=== PATIENT | female | born 1955 | race Asian ===

== ENCOUNTER 2020-04-14 14:54 | Inpatient (IN) | payer OTHER, MEDICARE ==
--- NOTE | 2020-04-14 15:49 | Event Note ---
ED Screening Note Date of service: 04/14/20 Time: 15:45 ED Screening Note: 64-year-old -[place] female with a comorbidity of diabetes and hypertension with stent placement presents to the emergency room with her daughter for concerns for confusion and Covid-like symptoms. Daughter states that patient was seen at [facility] twice this week and yesterday it was diagnosed with Covid and bilateral double pneumonia per family member. Patient was placed on azithromycin. Daughter reports that she has had increased confusion over the last 4 days with a cough decreased appetite per family member. Patient reports she has loss of taste and smell. Patient is on Metformin. This initial assessment/diagnostic orders/clinical plan/treatment(s) is/are subject to change based on patients health status, clinical progression and re- assessment by fellow clinical providers in the ED. Further treatment and workup at subsequent clinical providers discretion. Patient/guardian urged not to elope from the ED as their condition may be serious if not clinically assessed and managed. Initial orders include: Patient's alert and oriented x2 with difficulty word for word finding in place. Blood sugar was checked in triage which is 72. Patient noted to have a low- grade temperature of 99.9 and mildly hypoxic at 95% on room air. Discussed patient's case briefly with Dr. Castillo and he recommends to do a altered mental status ER protocol. Labs and CT has been placed. Inform charge nurse of patient's condition.
[2020-04-14 16:01] LABS: Basophils % (Auto) 0.3 % (0.0-1.8); Eosinophils % (Auto) 0.1 % (0.0-4.3); Hematocrit 36.9 % (30.3-42.9); Hemoglobin 12.2 gm/dl (10.1-14.3); Mean Corpuscular HGB Conc 33 % (30-34); Mean Corpuscular Volume 90 fl (79-97); Monocytes # (Auto) 0.5 K/mm3 (0.0-0.8); Monocytes % (Auto) 14.5 % (0.0-7.3); Platelet Count 197 K/mm3 (140-440); Red Blood Count 4.09 M/mm3 (3.65-5.03); Red Cell Distribution Width 13.9 % (13.2-15.2)
--- NOTE | 2020-04-14 16:12 | XRay Report ---
XR chest routine 2V INDICATION / CLINICAL INFORMATION: sob,+ covid. COMPARISON: None available. FINDINGS: SUPPORT DEVICES: None. HEART /PULMONARY VASCULATURE: No significant abnormality. LUNGS / PLEURA: Patchy bilateral airspace opacities, greatest in the right mid lung and bilateral brandi g bases. No sizable pleural effusion. No pneumothorax. ADDITIONAL FINDINGS: No significant additional findings. IMPRESSION: Bilateral pulmonary airspace disease, in keeping with reported history of COVID. Signer Name: Matthew Snyder MD Signed: 04/14/2020 4:08 PM Workstation Name: [id number]
[2020-04-14 16:22] LABS: Bilirubin,Urine NEG (Negative); Blood,Urine NEG (Negative); Color,Urine Yellow (Yellow); Mucus,Urine FEW /HPF; Urobilinogen,Urine < 2.0 mg/dL (<2.0)
[2020-04-14 16:23] LABS: Protein,Urine >500 mg/dL (Negative)
[2020-04-14 16:26] LABS: Albumin 3.7 g/dL (3.9-5); Calcium 9.8 mg/dL (8.4-10.2)
--- NOTE | 2020-04-14 17:53 | Cat Scan Report ---
CT head/brain wo con INDICATION / CLINICAL INFORMATION: 64 years Female; Altered mental status. TECHNIQUE: Routine CT head without contrast. All CT scans at this location are performed using CT dos e reduction for ALARA by means of automated exposure control. COMPARISON: None. FINDINGS: BRAIN / INTRACRANIAL CONTENTS: The motion and beam hardening degrade the image quality. However, ther e appears be mild cerebral white matter disease most consistent with microvascular angiopathy. There also appears be old small lacunar infarct along the head of the right caudate, best seen on the coron al reconstructed sequence. There is also mild cerebral atrophy. The ventricular system is correspondingly appropriate in size an d configuration. There is no clear CT evidence of acute intracranial hemorrhage or significant mass e ffect. ORBITS: No significant abnormality of visualized orbits. SINUSES / MASTOIDS: No significant abnormality in the visualized paranasal sinuses or mastoid air david ls. CRANIOCERVICAL JUNCTION: No significant abnormality. ADDITIONAL FINDINGS: None. IMPRESSION: 1. The motion degrades the image quality. However, there is microvascular angiopathy as described wit hout CT evidence of acute intracranial hemorrhage. Signer Name: Twan Talamantes MD Signed: 04/14/2020 5:48 PM Workstation Name: [id number]
--- NOTE | 2020-04-14 21:48 | Emergency Department Report ---
ED General Adult HPI - General Chief complaint: Dyspnea/Respdistress Stated complaint: BODY ACHES/COVID Time Seen by Provider: 04/14/20 21:33 Source: patient, family Mode of arrival: Wheelchair Limitations: No Limitations - History of Present Illness Initial comments: 64-year-old female, Covid positive, history of hypertension, CAD, presents to ED with confusion. Patient has had symptomatic Covid for the last week, including cough, loss of smell and taste. Patient denies any difficulty breathing. Parents became worried because she forgot to eat and has been forgetting some things such as her phone number. Patient states she feels like her brain is foggy. Patient was seen at [facility] on yesterday and tested positive for COVID-19 and was told that she had bilateral pneumonia. Patient brought to ED today for confusion. -: days(s) (4) Consistency: intermittent Improves with: none Worsens with: none Associated Symptoms: confusion, cough, fever/chills. denies: nausea/vomiting, shortness of breath - Related Data Allergies Allergy/AdvReac Type Severity Reaction Status Date / Time shellfish derived Allergy Swelling Verified 04/14/20 15:11 strawberry Allergy Swelling Verified 04/14/20 15:11 ED Review of Systems ROS: Stated complaint: BODY ACHES/COVID Other details as noted in HPI Comment: All other systems reviewed and negative Constitutional: fever, other (Decreased appetite) Respiratory: cough. denies: shortness of breath Gastrointestinal: denies: vomiting, diarrhea ED Past Medical Hx - Past Medical History Previous Medical History?: Yes Hx Hypertension: Yes Hx CVA: Yes Hx Diabetes: Yes - Surgical History Past Surgical History?: Yes Hx Coronary Stent: Yes - Social History Smoking Status: Never Smoker Substance Use Type: None ED Physical Exam - General Limitations: No Limitations General appearance: alert, in no apparent distress - Head Head exam: Present: atraumatic, normocephalic - Eye Eye exam: Present: normal appearance, EOMI - ENT ENT exam: Present: mucous membranes moist - Neck Neck exam: Present: normal inspection - Respiratory Respiratory exam: Present: normal lung sounds bilaterally. Absent: respiratory distress - Cardiovascular Cardiovascular Exam: Present: regular rate, normal rhythm - GI/Abdominal GI/Abdominal exam: Present: soft. Absent: distended, tenderness - Extremities Exam Extremities exam: Present: normal inspection - Neurological Exam Neurological exam: Present: alert, oriented X3 - Psychiatric Psychiatric exam: Present: normal affect, normal mood - Skin Skin exam: Present: warm, dry, intact, normal color ED Course Vital Signs 04/14/20 04/14/20 04/14/20 15:11 22:48 22:50 Temperature 99.9 F H 100.4 F H Pulse Rate 83 Respiratory 22 Rate Blood Pressure 153/78 Blood Pressure [Left] O2 Sat by Pulse 95 91 Oximetry 04/14/20 04/14/20 04/14/20 22:55 23:00 23:16 Temperature Pulse Rate 88 86 Respiratory 20 16 22 Rate Blood Pressure 166/77 166/77 Blood Pressure [Left] O2 Sat by Pulse 90 88 95 Oximetry 04/14/20 04/14/20 04/15/20 23:30 23:46 00:00 Temperature Pulse Rate 84 86 86 Respiratory 35 H 28 H 24 Rate Blood Pressure 151/85 152/87 151/92 Blood Pressure [Left] O2 Sat by Pulse 97 95 93 Oximetry 04/15/20 04/15/20 04/15/20 00:15 00:31 00:44 Temperature Pulse Rate 84 84 Respiratory 26 H 16 33 H Rate Blood Pressure 157/85 157/85 Blood Pressure [Left] O2 Sat by Pulse 94 100 Oximetry 04/15/20 04/15/20 04/15/20 00:45 01:00 01:15 Temperature Pulse Rate 85 79 78 Respiratory 18 34 H 30 H Rate Blood Pressure 144/83 143/71 127/72 Blood Pressure [Left] O2 Sat by Pulse 94 94 93 Oximetry 04/15/20 04/15/20 04/15/20 01:31 01:45 01:53 Temperature Pulse Rate 77 75 76 Respiratory 29 H 26 H 18 Rate Blood Pressure 149/79 150/84 Blood Pressure 150/84 [Left] O2 Sat by Pulse 91 92 95 Oximetry 04/15/20 04/15/20 04/15/20 02:00 02:15 02:30 Temperature Pulse Rate 75 75 73 Respiratory 33 H 31 H 33 H Rate Blood Pressure 137/76 139/80 136/73 Blood Pressure [Left] O2 Sat by Pulse 92 91 94 Oximetry - Consultations Consultation #1: 04/14/20 22:[address] Mills with [facility]. States patient is to stay at [facility] for admission; they have no beds at any of their facilities. Of note, patient was given prescriptions for Cozaar, azithromycin, and Pradaxa by her [facility] PCP ED Medical Decision Making - Lab Data Result diagrams: 04/14/20 15:35 04/14/20 23:05 - EKG Data -: EKG Interpreted by Me EKG shows normal: sinus rhythm, axis, intervals, QRS complexes, ST-T waves Rate: normal - EKG Data Interpretation: no acute changes - Radiology Data Radiology results: report reviewed, image reviewed - Medical Decision Making 64-year-old female, tested positive for COVID-19 on yesterday, presents to ED with some intermittent confusion. Patient is A&O x3 at this time. She does admit to some brain fogginess and forgetting few things. CT head is negative. Chest x-ray shows bilateral pneumonia. With ambulation, O2 sats dropped to 87% on room air. Blood cultures drawn, Rocephin, azithromycin, and Decadron given. Patient will be admitted to hospitalist, Dr. Adorno, for further management. - Differential Diagnosis COVID-19, CVA, pneumonia Critical Care Time: Yes Critical care time in (mins) excluding proc time.: 35 Critical care attestation.: If time is entered above; I have spent that time in minutes in the direct care of this critically ill patient, excluding procedure time. Critical Care Time: 35 min ED Disposition Clinical Impression: Acute hypoxemic respiratory failure due to COVID-19, Pneumonia, Hypokalemia Disposition: OP ADMIT IP TO THIS HOSP Is pt being admited?: Yes Condition: Stable Time of Disposition: 22:54
[2020-04-14] MEDS ORDERED: cefTRIAXone/NS 1 GM/50 ML 1 GM/50 ML BAG IV ONE (22:45)
[2020-04-14] MEDS ORDERED: DEXAMETHASONE 4 MG TAB PO ONE (22:45)
[2020-04-14] MEDS ORDERED: AZITHROMYCIN 250 MG TAB PO ONE (22:45)
[2020-04-14] MEDS ORDERED: POTASSIUM CHLORIDE ER 20 MEQ TAB PO ONE (22:45)
[2020-04-14] MEDS ORDERED: ACETAMINOPHEN 325 MG TAB PO ONE (23:25)
[2020-04-15] MEDS ORDERED: MAGNESIUM HYDROXIDE (MOM) ORAL LIQD UDC PO PRN (00:34)
[2020-04-15] MEDS ORDERED: ACETAMINOPHEN 325 MG TAB PO PRN (00:34)
[2020-04-15] MEDS ORDERED: MORPHINE 2 MG/1 ML INJ IV PRN (00:34)
[2020-04-15] MEDS ORDERED: ONDANSETRON 4 MG/2 ML INJ IV PRN (00:34)
[2020-04-15] MEDS ORDERED: DEXTROSE 50% IN WATER (25GM) 50 ML SYRINGE IV PRN (00:34)
--- NOTE | 2020-04-15 00:46 | History and Physical Report ---
History of Present Illness Date of examination: 04/14/20 Date of admission: 04/14/2020 Chief complaint: Cough Fever Confusion History of present illness: 64-year-old female with known history of coronary artery disease, hypertension, presenting to the emergency room today complaining of cough and loss of smell and taste over the past 1 week. Patient was diagnosed with COVID-19 positive at a [facility] facility yesterday. Symptoms have become worse today and she has also been a little confused. She has become increasingly forgetful. She was informed in the [facility] facility that she had bilateral pneumonia. Upon arrival here in the emergency room patient was hypoxic with O2 saturation in the 80s. Chest x-ray reveals bilateral infiltrate. Labs reviewed mild hypokalemia. Patient admitted with pneumonia possibly secondary to COVID-19. She was started on empiric IV antibiotics and IV steroid. Past History Past Medical History: CAD, diabetes, hypertension, stroke Past Surgical History: PTCA Social history: no significant social history Family history: no significant family history Medications and Allergies Allergies Allergy/AdvReac Type Severity Reaction Status Date / Time shellfish derived Allergy Swelling Verified 04/14/20 15:11 strawberry Allergy Swelling Verified 04/14/20 15:11 Active Meds: Active Medications Acetaminophen (Acetaminophen 325 Mg Tab) 650 mg PO Q4H PRN PRN Reason: Pain MILD(1-3)/Fever >100.5/GRAY Dextrose (Dextrose 50% In Water (25gm) 50 Ml Syringe) 50 ml IV Q30MIN PRN; Protocol PRN Reason: Hypoglycemia Dextrose (Dextrose 50% In Water (25gm) 50 Ml Syringe) 50 ml IV Q30MIN PRN; Protocol PRN Reason: Hypoglycemia Ceftriaxone Sodium (Rocephin/Ns 2 Gm/100 Ml) 2 gm in 100 mls @ 200 mls/hr IV Q24H [facility]; Protocol Azithromycin (Zithromax/Ns) 500 mg in 250 mls @ 250 mls/hr IV Q24H [facility]; Protocol Insulin Human Regular (Insulin Regular, Human 100 Units/1 Ml) 0 units SUB-Q ACHS [facility]; Protocol Magnesium Hydroxide (Magnesium Hydroxide (Mom) Oral Liqd Udc) 30 ml PO Q4H PRN PRN Reason: Constipation Morphine Sulfate (Morphine 2 Mg/1 Ml Inj) 2 mg IV Q4H PRN PRN Reason: Pain, Moderate (4-6) Ondansetron HCl (Ondansetron 4 Mg/2 Ml Inj) 4 mg IV Q8H PRN PRN Reason: Nausea And Vomiting Sodium Chloride (Sodium Chloride 0.9% 10 Ml Flush Syringe) 10 ml IV BID DURGA Sodium Chloride (Sodium Chloride 0.9% 10 Ml Flush Syringe) 10 ml IV PRN PRN PRN Reason: LINE FLUSH Review of Systems Constitutional: fever, chills, fatigue Ears, nose, mouth and throat: no nasal congestion, no sore throat Cardiovascular: no chest pain, no palpitations Respiratory: cough, shortness of breath Gastrointestinal: no abdominal pain, no nausea, no vomiting, no diarrhea Genitourinary Female: no flank pain, no dysuria, no hematuria Musculoskeletal: no neck pain, no low back pain Integumentary: no rash, no pruritis Neurological: confusion, no headaches Psychiatric: no anxiety, no depression Exam - Constitutional Vitals: Temp Pulse Resp BP Pulse Ox 100.4 F H 83 20 153/78 90 04/14/20 22:50 04/14/20 15:11 04/14/20 22:55 04/14/20 15:11 04/14/20 22:55 General appearance: Present: no acute distress, well-nourished - EENT Eyes: Present: PERRL, EOM intact. Absent: scleral icterus ENT: hearing intact, clear oral mucosa, dentition normal - Neck Neck: Present: supple, normal ROM - Respiratory Respiratory effort: normal Respiratory: bilateral: diminished - Cardiovascular Rhythm: regular Heart Sounds: Present: S1 & S2. Absent: gallop, systolic murmur, diastolic murmur, rub - Extremities Extremities: no ischemia, pulses intact, pulses symmetrical, No edema, normal temperature, normal color, Full ROM Peripheral Pulses: within normal limits - Abdominal General gastrointestinal: Present: soft, non-tender, non-distended, normal bowel sounds. Absent: mass - Integumentary Integumentary: Present: clear, warm, dry. Absent: rash - Musculoskeletal Musculoskeletal: strength equal bilaterally - Psychiatric Psychiatric: appropriate mood/affect, intact judgment & insight, memory intact, cooperative - Neurologic Neurologic: CNII-XII intact, no focal deficits, moves all extremities Results - Labs CBC & Chem 7: 04/14/20 15:35 04/14/20 23:05 Labs: Abnormal lab results 04/14/20 04/14/20 04/14/20 Range/Units 15:35 15:35 15:35 WBC 3.6 L (4.5-11.0) K/mm3 [place] % (Auto) 14.5 H (0.0-7.3) % Lymph # (Auto) 1.0 L (1.2-5.4) K/mm3 Potassium 3.3 L (3.6-5.0) mmol/L BUN 23 H (7-17) mg/dL Creatinine 1.4 H (0.6-1.2) mg/dL Phosphorus 1.20 L (2.5-4.5) mg/dL Magnesium 1.50 L (1.7-2.3) mg/dL Total Protein 6.1 L (6.3-8.2) g/dL Albumin 3.7 L (3.9-5) g/dL Urine WBC (Auto) (0.0-6.0) /HPF Salicylates (2.8-20.0) mg/dL Acetaminophen (10.0-30.0) ug/mL 04/14/20 04/14/20 04/14/20 Range/Units 15:41 15:41 16:11 WBC (4.5-11.0) K/mm3 [place] % (Auto) (0.0-7.3) % Lymph # (Auto) (1.2-5.4) K/mm3 Potassium (3.6-5.0) mmol/L BUN (7-17) mg/dL Creatinine (0.6-1.2) mg/dL Phosphorus (2.5-4.5) mg/dL Magnesium (1.7-2.3) mg/dL Total Protein (6.3-8.2) g/dL Albumin (3.9-5) g/dL Urine WBC (Auto) 27.0 H (0.0-6.0) /HPF Salicylates 1.1 L (2.8-20.0) mg/dL Acetaminophen 5.0 L (10.0-30.0) ug/mL Assessment and Plan - Patient Problems (1) Pneumonia Current Visit: Yes Status: Acute Plan to address problem: None admitted and placed on empiric IV antibiotics. We await culture results. (2) Acute hypoxemic respiratory failure due to COVID-19 Current Visit: Yes Status: Acute Plan to address problem: Possibly secondary to underlying pneumonia. We will keep O2 saturation greater or equal to 94%. (3) Hypokalemia Current Visit: Yes Status: Acute Plan to address problem: Potassium will be repleted. Will monitor chemistry. (4) DVT prophylaxis Current Visit: Yes Status: Acute Plan to address problem: Patient placed on subcutaneous heparin. (5) Full code status Current Visit: Yes Status: Acute Plan to address problem: Patient is a full code.
[2020-04-15 02:22] LABS: C-Reactive Protein 5.2 mg/dL (0.00-1.30)
[2020-04-15] MEDS: cefTRIAXone/NS 2 GM/100 ML 2 GM/100 ML BAG IV SCH (09:25)
[2020-04-15] MEDS: INSULIN REGULAR, HUMAN 100 UNITS/1 ML SUB-Q SCH ×4 (09:26→22:40)
[2020-04-15] MEDS ORDERED: dexAMETHasone 4 MG/ML VIAL IV SCH (10:00)
[2020-04-15] MEDS: AZITHROMYCIN/NS 500 MG/250 ML 500 MG/250 ML BAG IV SCH (10:44)
--- NOTE | 2020-04-15 11:57 | Consultation ---
History of Present Illness - Reason for Consult Consult date: 04/15/20 - History of Present Illness 64-year-old female past medical history CAD, HTN presented to the hospital complaining of a cough. This began approximate 1 week prior to admission, and she was diagnosed with COVID-19 as an outpatient the day prior to admission. She notes her symptoms were progressively worse since onset, and she complains of dysgeusia and anosmia as well. She reports that as an outpatient she had a chest x-ray done which showed bilateral pneumonia. Febrile to 100.4 with a white count of 3.6. Elevated inflammatory markers, elevated D-dimer. Currently on ceftriaxone and azithromycin. Blood and urine cultures no growth to date. Admission O2 sats to 88 with tachypnea. Imaging personally reviewed: Chest x-ray: Bilateral pulmonary opacities. Review of systems: Deferred due to PPE conservation strategy. Past History Past Medical History: CAD, diabetes, hypertension, stroke Past Surgical History: PTCA Social history: no significant social history Family history: no significant family history Medications and Allergies Allergies Allergy/AdvReac Type Severity Reaction Status Date / Time shellfish derived Allergy Swelling Verified 04/14/20 15:11 strawberry Allergy Swelling Verified 04/14/20 15:11 Active Meds: Active Medications Acetaminophen (Acetaminophen 325 Mg Tab) 650 mg PO Q4H PRN PRN Reason: Pain MILD(1-3)/Fever >100.5/GRAY Dexamethasone (Dexamethasone 4 Mg/Ml Vial) 6 mg IV Q24HR DURGA Last Admin: 04/15/20 09:25 Dose: 6 mg Documented by: Dextrose (Dextrose 50% In Water (25gm) 50 Ml Syringe) 0 ml IV Q30MIN PRN; Protocol PRN Reason: Hypoglycemia Heparin Sodium (Porcine) (Heparin 5,000 Unit/1 Ml Vial) 5,000 unit SUB-Q Q8HR [facility]UR[facility] Ceftriaxone Sodium (Rocephin/Ns 2 Gm/100 Ml) 2 gm in 100 mls @ 200 mls/hr IV Q24HR [facility]UR[facility]; Protocol Last Admin: 04/15/20 09:25 Dose: 200 mls/hr Documented by: Azithromycin (Zithromax/Ns) 500 mg in 250 mls @ 250 mls/hr IV Q24HR [facility]; Protocol Last Admin: 04/15/20 10:44 Dose: 250 mls/hr Documented by: Insulin Human Regular (Insulin Regular, Human 100 Units/1 Ml) 0 units SUB-Q ACHS [facility]; Protocol Last Admin: 04/15/20 09:26 Dose: 4 units Documented by: Magnesium Hydroxide (Magnesium Hydroxide (Mom) Oral Liqd Udc) 30 ml PO Q4H PRN PRN Reason: Constipation Morphine Sulfate (Morphine 2 Mg/1 Ml Inj) 2 mg IV Q4H PRN PRN Reason: Pain, Moderate (4-6) Ondansetron HCl (Ondansetron 4 Mg/2 Ml Inj) 4 mg IV Q8H PRN PRN Reason: Nausea And Vomiting Sodium Chloride (Sodium Chloride 0.9% 10 Ml Flush Syringe) 10 ml IV BID [facility] Last Admin: 04/15/20 09:26 Dose: 10 ml Documented by: Sodium Chloride (Sodium Chloride 0.9% 10 Ml Flush Syringe) 10 ml IV PRN PRN PRN Reason: LINE FLUSH Physical Examination - Physical Exam Narrative exam: Physical exam deferred due to PPE conservation strategy. Please refer to primary team's note. - Constitutional Vitals: Vital Signs Temp Pulse Resp BP Pulse Ox 99.2 F 72 22 163/94 99 04/15/20 08:33 04/15/20 08:33 04/15/20 08:33 04/15/20 08:33 04/15/20 08:33 Temperature -Last 24 Hours Temperature 99.2 F Temperature 100.4 F Temperature 99.9 F Results - Labs CBC & Chem 7: 04/14/20 15:35 04/14/20 23:05 Labs: Abnormal lab results 04/14/20 04/14/20 04/14/20 Range/Units 15:35 15:35 15:35 WBC 3.6 L (4.5-11.0) K/mm3 [place] % (Auto) 14.5 H (0.0-7.3) % Lymph # (Auto) 1.0 L (1.2-5.4) K/mm3 D-Dimer (0-234) ng/mlDDU Potassium 3.3 L (3.6-5.0) mmol/L BUN 23 H (7-17) mg/dL Creatinine 1.4 H (0.6-1.2) mg/dL POC Glucose (70-105) mg/dL Phosphorus 1.20 L (2.5-4.5) mg/dL Magnesium 1.50 L (1.7-2.3) mg/dL Ferritin (10.0-200.0) ng/mL Lactate Dehydrogenase (91-180) units/L C-Reactive Protein (0.00-1.30) mg/dL Total Protein 6.1 L (6.3-8.2) g/dL Albumin 3.7 L (3.9-5) g/dL Urine WBC (Auto) (0.0-6.0) /HPF Salicylates (2.8-20.0) mg/dL Acetaminophen (10.0-30.0) ug/mL 04/14/20 04/14/20 04/14/20 Range/Units 15:41 15:41 16:11 WBC (4.5-11.0) K/mm3 [place] % (Auto) (0.0-7.3) % Lymph # (Auto) (1.2-5.4) K/mm3 D-Dimer (0-234) ng/mlDDU Potassium (3.6-5.0) mmol/L BUN (7-17) mg/dL Creatinine (0.6-1.2) mg/dL POC Glucose (70-105) mg/dL Phosphorus (2.5-4.5) mg/dL Magnesium (1.7-2.3) mg/dL Ferritin (10.0-200.0) ng/mL Lactate Dehydrogenase (91-180) units/L C-Reactive Protein (0.00-1.30) mg/dL Total Protein (6.3-8.2) g/dL Albumin (3.9-5) g/dL Urine WBC (Auto) 27.0 H (0.0-6.0) /HPF Salicylates 1.1 L (2.8-20.0) mg/dL Acetaminophen 5.0 L (10.0-30.0) ug/mL 04/14/20 04/14/20 04/14/20 Range/Units 23:05 23:05 23:05 WBC (4.5-11.0) K/mm3 [place] % (Auto) (0.0-7.3) % Lymph # (Auto) (1.2-5.4) K/mm3 D-Dimer 664.34 H (0-234) ng/mlDDU Potassium (3.6-5.0) mmol/L BUN (7-17) mg/dL Creatinine (0.6-1.2) mg/dL POC Glucose (70-105) mg/dL Phosphorus (2.5-4.5) mg/dL Magnesium (1.7-2.3) mg/dL Ferritin 388.0 H (10.0-200.0) ng/mL Lactate Dehydrogenase 380 H (91-180) units/L C-Reactive Protein 5.20 H (0.00-1.30) mg/dL Total Protein (6.3-8.2) g/dL Albumin (3.9-5) g/dL Urine WBC (Auto) (0.0-6.0) /HPF Salicylates (2.8-20.0) mg/dL Acetaminophen (10.0-30.0) ug/mL 04/15/20 Range/Units 08:32 WBC (4.5-11.0) K/mm3 [place] % (Auto) (0.0-7.3) % Lymph # (Auto) (1.2-5.4) K/mm3 D-Dimer (0-234) ng/mlDDU Potassium (3.6-5.0) mmol/L BUN (7-17) mg/dL Creatinine (0.6-1.2) mg/dL POC Glucose 281 H (70-105) mg/dL Phosphorus (2.5-4.5) mg/dL Magnesium (1.7-2.3) mg/dL Ferritin (10.0-200.0) ng/mL Lactate Dehydrogenase (91-180) units/L C-Reactive Protein (0.00-1.30) mg/dL Total Protein (6.3-8.2) g/dL Albumin (3.9-5) g/dL Urine WBC (Auto) (0.0-6.0) /HPF Salicylates (2.8-20.0) mg/dL Acetaminophen (10.0-30.0) ug/mL Assessment and Plan Cultures: Blood culture no growth to date Urine culture no growth to date A/P: 64-year-old female past medical history CAD, HTN admitted with COVID-19 pneumonia #COVID-19 pneumonia: Patient presented with a week of symptoms, chest x-ray with diffuse bilateral infiltrates, admission O2 88% sats on room air. Inflammatory markers elevated #Acute hypoxemic respiratory failure: Likely secondary to COVID-19 infection. Currently on nasal cannula #Leukopenia: Likely secondary to COVID-19 #Obesity #Mild confusion: Likely secondary to COVID-19. Recs: -Dexamethasone 6 mg IV/PO daily for 10 days -Remdesivir 200 mg IV q day x 1 followed by 100 mg IV q day x 4 days -Obtain q48-72h inflammatory markers - ferritin, Ddimer, CRP, LDH -Continue ceftriaxone 2 gm IV qday and azithromycin 500 mg PO qday, if procalcitonin <0.25 ng/mL stop antibiotics -Anticoagulation per hospital protocol -Proning as able Thank you for the consult, we will continue to follow. MD [facility] O: [phone] F: [phone]
[2020-04-15] MEDS: HEPARIN 5,000 UNIT/1 ML VIAL SUB-Q SCH ×2 (13:20→22:39)
[2020-04-15] MEDS: SODIUM CHLORIDE 0.9% 50 ML IVPB IV SCH (13:21)
--- NOTE | 2020-04-15 13:29 | Progress Note ---
Assessment and Plan Assessment and plan: 64-year-old female with known history of coronary artery disease, hypertension, presenting to the emergency room today complaining of cough and loss of smell and taste over the past 1 week. Patient was diagnosed with COVID-19 positive at a [facility] facility yesterday. Symptoms have become worse today and she has also been a little confused. She has become increasingly forgetful. She was informed in the [facility] facility that she had bilateral pneumonia. Upon arrival here in the emergency room patient was hypoxic with O2 saturation in the 80s. Chest x-ray reveals bilateral infiltrate. Labs reviewed mild hypokalemia. Patient admitted with pneumonia possibly secondary to COVID-19. She was started on empiric IV antibiotics and IV steroid. COVID-19 pneumonia Sepsis secondary to Covid pneumonia COVID-19 Hypokalemia now resolved Acute respiratory failure with hypoxia Hypophosphatemia Hypomagnesemia Acute cystitis Acute kidney injury with vasomotor nephropathy Obesity Plan Continue remdesivir and Decadron as prescribed. ID input noted. Continue to wean oxygen nursing staff asked to be has wean the patient down to 2 L this morning Continue vitamins as risk prescribed Covid test came back positive Monitor electrolytes DVT and GI prophylaxis Continue to monitor inflammatory markers and monitor renal function as remdesivir may need to be discontinued if worsening renal function. Plan discussed in detail with the patient History Interval history: Patient seen and examined resting comfortably at this time still with shortness of breath. Hospitalist Physical - Physical exam Narrative exam: VITAL SIGNS: Reviewed. GENERAL: The patient appears normally developed, lethargic vital signs as documented. HEAD: No signs of head trauma. EYES: Pupils are equal. Extraocular motions intact. EARS: Hearing grossly intact. MOUTH: Oropharynx is normal. NECK: No adenopathy, no JVD. CHEST: Chest with diminished breath sounds bilaterally. No wheezes, rales, or rhonchi. CARDIAC: Regular rate and rhythm. S1 and S2, without murmurs, gallops, or rubs. VASCULAR: No Edema. Peripheral pulses normal and equal in all extremities. ABDOMEN: Soft, non tender and non distended. No rebound or guarding, and no masses palpated. Bowel Sounds normal. MUSCULOSKELETAL: Good range of motion of all major joints. Extremities without clubbing, cyanosis or edema. NEUROLOGIC EXAM: Alert and oriented x 3 No focal sensory or strength deficits. Speech normal. Follows commands. PSYCHIATRIC: Mood normal. SKIN: detail exam as documented in skin assessment - Constitutional Vitals: Temp Pulse Resp BP Pulse Ox 98.7 F 74 18 144/91 98 04/15/20 12:49 04/15/20 12:49 04/15/20 12:49 04/15/20 12:49 04/15/20 12:49 General appearance: Present: no acute distress, well-nourished Results - Labs CBC & Chem 7: 04/14/20 15:35 04/14/20 23:05 Labs: Laboratory Last Values WBC 3.6 K/mm3 (4.5-11.0) L 04/14/20 15:35 RBC 4.09 M/mm3 (3.65-5.03) 04/14/20 15:35 Hgb 12.2 gm/dl (10.1-14.3) 04/14/20 15:35 Hct 36.9 % (30.3-42.9) 04/14/20 15:35 MCV 90 fl (79-97) 04/14/20 15:35 MCH 30 pg (28-32) 04/14/20 15:35 MCHC 33 % (30-34) 04/14/20 15:35 RDW 13.9 % (13.2-15.2) 04/14/20 15:35 Plt Count 197 K/mm3 (140-440) 04/14/20 15:35 Lymph % (Auto) 28.0 % (13.4-35.0) 04/14/20 15:35 [place] % (Auto) 14.5 % (0.0-7.3) H 04/14/20 15:35 Eos % (Auto) 0.1 % (0.0-4.3) 04/14/20 15:35 Baso % (Auto) 0.3 % (0.0-1.8) 04/14/20 15:35 Lymph # (Auto) 1.0 K/mm3 (1.2-5.4) L 04/14/20 15:35 [place] # (Auto) 0.5 K/mm3 (0.0-0.8) 04/14/20 15:35 Eos # (Auto) 0.0 K/mm3 (0.0-0.4) 04/14/20 15:35 Baso # (Auto) 0.0 K/mm3 (0.0-0.1) 04/14/20 15:35 Seg Neutrophils % 57.1 % (40.0-70.0) 04/14/20 15:35 Seg Neutrophils # 2.0 K/mm3 (1.8-7.7) 04/14/20 15:35 D-Dimer 664.34 ng/mlDDU (0-234) H 04/14/20 23:05 Sodium 142 mmol/L (137-145) 04/14/20 15:35 Potassium 3.3 mmol/L (3.6-5.0) L 04/14/20 15:35 Chloride 103.6 mmol/L (98-107) 04/14/20 15:35 Carbon Dioxide 29 mmol/L (22-30) 04/14/20 15:35 Anion Gap 13 mmol/L 04/14/20 15:35 BUN 23 mg/dL (7-17) H 04/14/20 15:35 Creatinine 1.4 mg/dL (0.6-1.2) H 04/14/20 15:35 Estimated GFR 38 ml/min 04/14/20 15:35 BUN/Creatinine Ratio 16 % 04/14/20 15:35 Glucose 71 mg/dL (65-100) 04/14/20 23:05 POC Glucose 281 mg/dL (70-105) H 04/15/20 08:32 Lactic Acid 1.30 mmol/L (0.7-2.0) 04/14/20 15:41 Calcium 9.8 mg/dL (8.4-10.2) 04/14/20 15:35 Phosphorus 1.20 mg/dL (2.5-4.5) L 04/14/20 15:35 Magnesium 1.50 mg/dL (1.7-2.3) L 04/14/20 15:35 Ferritin 388.0 ng/mL (10.0-200.0) H 04/14/20 23:05 Total Bilirubin 0.40 mg/dL (0.1-1.2) 04/14/20 15:35 AST 27 units/L (5-40) 04/14/20 15:35 ALT 15 units/L (7-56) 04/14/20 15:35 Alkaline Phosphatase 62 units/L (35-129) 04/14/20 15:35 Ammonia 35.0 umol/L (25-60) 04/14/20 15:41 Lactate Dehydrogenase 380 units/L (91-180) H 04/14/20 23:05 C-Reactive Protein 5.20 mg/dL (0.00-1.30) H 04/14/20 23:05 Total Protein 6.1 g/dL (6.3-8.2) L 04/14/20 15:35 Albumin 3.7 g/dL (3.9-5) L 04/14/20 15:35 Albumin/Globulin Ratio 1.5 % 04/14/20 15:35 Urine Color Yellow (Yellow) 04/14/20 16:11 Urine Turbidity Clear (Clear) 04/14/20 16:11 Urine pH 5.0 (5.0-7.0) 04/14/20 16:11 Ur Specific [place] 1.022 (1.003-1.030) 04/14/20 16:11 Urine Protein >500 mg/dL (Negative) 04/14/20 16:11 Urine Glucose (UA) Neg mg/dL (Negative) 04/14/20 16:11 Urine Ketones Neg mg/dL (Negative) 04/14/20 16:11 Urine Blood Neg (Negative) 04/14/20 16:11 Urine Nitrite Neg (Negative) 04/14/20 16:11 Urine Bilirubin Neg (Negative) 04/14/20 16:11 Urine Urobilinogen < 2.0 mg/dL (<2.0) 04/14/20 16:11 Ur Leukocyte Esterase Sm (Negative) 04/14/20 16:11 Urine WBC (Auto) 27.0 /HPF (0.0-6.0) H 04/14/20 16:11 Urine RBC (Auto) 2.0 /HPF (0.0-6.0) 04/14/20 16:11 U Epithel Cells (Auto) 2.0 /HPF (0-13.0) 04/14/20 16:11 Urine Mucus Few /HPF 04/14/20 16:11 Salicylates 1.1 mg/dL (2.8-20.0) L 04/14/20 15:41 Acetaminophen 5.0 ug/mL (10.0-30.0) L 04/14/20 15:41 Coronavirus (PCR) Positive (Negative) A 04/15/20 Unknown Microbiology: Microbiology 04/14/20 16:11 Urine,Clean Catch Urine Culture - Preliminary NO GROWTH AFTER 24 HOURS 04/14/20 15:52 Peripheral/Venous Blood Culture - Preliminary Culture in Progress 04/14/20 15:41 Peripheral/Venous Blood Culture - Preliminary Culture in Progress [place]/IV: IV Catheter Type [Right Hand] INT / Saline Lock Active Medications - Current Medications Current Medications: Generic Name Dose Route Start Last Admin Trade Name Freq PRN Reason Stop Dose Admin Acetaminophen 650 mg 04/15/20 00:34 Acetaminophen 325 Mg Tab PO Q4H PRN Pain MILD(1-3)/Fever >100.5/GRAY Dexamethasone 6 mg 04/15/20 10:00 04/15/20 09:25 Dexamethasone 4 Mg/Ml Vial IV 6 mg Q24HR DURGA Administration Dextrose 0 ml 04/15/20 00:34 Dextrose 50% In Water (25gm) 50 Ml Syringe IV Q30MIN PRN Hypoglycemia Protocol Heparin Sodium (Porcine) 5,000 unit 04/15/20 06:00 04/15/20 13:20 Heparin 5,000 Unit/1 Ml Vial SUB-Q 5,000 unit Q8HR DURGA Administration Ceftriaxone Sodium 2 gm in 100 mls @ 200 mls/hr 04/15/20 10:00 04/15/20 09:25 Rocephin/Ns 2 Gm/100 Ml IV 200 mls/hr Q24HR DURGA Administration Protocol Azithromycin 500 mg in 250 mls @ 250 mls/hr 04/15/20 10:00 04/15/20 10:44 Zithromax/Ns IV 250 mls/hr Q24HR DURGA Administration Protocol REMDESIVIR 200 mg/ Sodium 250 mls @ 500 mls/hr 04/15/20 13:30 04/15/20 13:11 Chloride IV 04/15/20 13:59 500 mls/hr ONCE ONE Administration REMDESIVIR 100 mg/ Sodium 250 mls @ 500 mls/hr 04/16/20 21:00 Chloride IV 04/19/20 21:29 Q24HR@2100 DURGA Magnesium Sulfate 1 gm/ Sodium 52 mls @ 52 mls/hr 04/15/20 13:27 Chloride IV 04/15/20 14:26 ONCE ONE Sodium Phosphate 30 mmol/ 510 mls @ 125 mls/hr 04/15/20 13:27 Sodium Chloride IV 04/15/20 17:31 ONCE ONE Insulin Human Regular 0 units 04/15/20 07:30 04/15/20 13:11 Insulin Regular, Human 100 Units/1 Ml SUB-Q 6 units ACHS DURGA Administration Protocol Magnesium Hydroxide 30 ml 04/15/20 00:34 Magnesium Hydroxide (Mom) Oral Liqd Udc PO Q4H PRN Constipation Morphine Sulfate 2 mg 04/15/20 00:34 Morphine 2 Mg/1 Ml Inj IV Q4H PRN Pain, Moderate (4-6) Ondansetron HCl 4 mg 04/15/20 00:34 Ondansetron 4 Mg/2 Ml Inj IV Q8H PRN Nausea And Vomiting Sodium Chloride 10 ml 04/15/20 10:00 04/15/20 09:26 Sodium Chloride 0.9% 10 Ml Flush Syringe IV 10 ml BID DURGA Administration Sodium Chloride 10 ml 04/15/20 00:34 Sodium Chloride 0.9% 10 Ml Flush Syringe IV PRN PRN LINE FLUSH Sodium Chloride 50 ml 04/15/20 14:00 04/15/20 13:21 Sodium Chloride 0.9% 50 Ml Ivpb IV 04/19/20 21:01 50 ml Q24HR@2100 DURGA Administration Nutrition/Malnutrition Assess - Dietary Evaluation Nutrition/Malnutrition Findings: Nutrition Notes Start: 04/15/20 07:16 Freq: Status: Active Protocol: Document 04/15/20 07:16 LP (Rec: 04/15/20 07:17 LP [id number]) Nutrition Notes Need for Assessment generated from: MD Order Initial or Follow up Brief Note Subjective/Other Information Consult for diet education. Pt still in ED. Nutrition Intervention Follow-Up By: 04/16/20 Additional Comments Follow for diet education
[2020-04-15] MEDS ORDERED: REMDESIVIR 200 MG in SODIUM CHLORIDE 0.9% 250ML 250 ML IV ONE (13:30)
[2020-04-15] MEDS ORDERED: REMDESIVIR 100 MG VIAL IV ONE (13:30)
[2020-04-15] MEDS ORDERED: MAGNESIUM SULFATE 1 GM in SODIUM CHLORIDE 0.9% 50 ML IV ONE (15:27)
[2020-04-15] MEDS ORDERED: SODIUM PHOSPHATE 30 MMOL in SODIUM CHLORIDE 0.9% 500 ML 500 ML IV ONE (15:27)
--- NOTE | 2020-04-15 19:24 | Consultation ---
History of Present Illness Consult date: 04/15/20 Requesting physician: JASON MEJIA Reason for consult: dyspnea History of present illness: 64-year-old female past medical history CAD, HTN presented to the hospital complaining of a cough, GUY, anosmia, and dysgeusia. Denies fevers, chills, chest pain. Active Medications Acetaminophen (Acetaminophen 325 Mg Tab) 650 mg PO Q4H PRN PRN Reason: Pain MILD(1-3)/Fever >100.5/GRAY Last Admin: 04/15/20 18:08 Dose: 650 mg Documented by: Dexamethasone (Dexamethasone 4 Mg/Ml Vial) 6 mg IV Q24HR DURGA Last Admin: 04/15/20 09:25 Dose: 6 mg Documented by: Dextrose (Dextrose 50% In Water (25gm) 50 Ml Syringe) 0 ml IV Q30MIN PRN; Protocol PRN Reason: Hypoglycemia Heparin Sodium (Porcine) (Heparin 5,000 Unit/1 Ml Vial) 5,000 unit SUB-Q Q8HR DURGA Last Admin: 04/15/20 13:20 Dose: 5,000 unit Documented by: Ceftriaxone Sodium (Rocephin/Ns 2 Gm/100 Ml) 2 gm in 100 mls @ 200 mls/hr IV Q24HR DURGA; Protocol Last Admin: 04/15/20 09:25 Dose: 200 mls/hr Documented by: Azithromycin (Zithromax/Ns) 500 mg in 250 mls @ 250 mls/hr IV Q24HR DURGA; Protocol Last Admin: 04/15/20 10:44 Dose: 250 mls/hr Documented by: REMDESIVIR 100 mg/ Sodium (Chloride) 250 mls @ 500 mls/hr IV Q24HR@2100 DURGA Stop: 04/19/20 21:29 Sodium Phosphate 30 mmol/ (Sodium Chloride) 510 mls @ 125 mls/hr IV ONCE ONE Stop: 04/15/20 19:31 Last Admin: 04/15/20 16:27 Dose: 125 mls/hr Documented by: Insulin Human Regular (Insulin Regular, Human 100 Units/1 Ml) 0 units SUB-Q ACHS DURGA; Protocol Last Admin: 04/15/20 17:36 Dose: 3 units Documented by: Magnesium Hydroxide (Magnesium Hydroxide (Mom) Oral Liqd Udc) 30 ml PO Q4H PRN PRN Reason: Constipation Morphine Sulfate (Morphine 2 Mg/1 Ml Inj) 2 mg IV Q4H PRN PRN Reason: Pain, Moderate (4-6) Ondansetron HCl (Ondansetron 4 Mg/2 Ml Inj) 4 mg IV Q8H PRN PRN Reason: Nausea And Vomiting Sodium Chloride (Sodium Chloride 0.9% 10 Ml Flush Syringe) 10 ml IV BID [facility] Last Admin: 04/15/20 09:26 Dose: 10 ml Documented by: Sodium Chloride (Sodium Chloride 0.9% 10 Ml Flush Syringe) 10 ml IV PRN PRN PRN Reason: LINE FLUSH Sodium Chloride (Sodium Chloride 0.9% 50 Ml Ivpb) 50 ml IV Q24HR@2100 [facility] Stop: 04/19/20 21:01 Last Admin: 04/15/20 13:21 Dose: 50 ml Documented by: Past History Past Medical History: CAD, diabetes, hypertension, stroke Past Surgical History: PTCA Social history: no significant social history, full code. denies: smoking, alcohol abuse, prescription drug abuse, IV drug use Family history: no significant family history (no pulm issues reported) Medications and Allergies Allergies Allergy/AdvReac Type Severity Reaction Status Date / Time shellfish derived Allergy Swelling Verified 04/14/20 15:11 strawberry Allergy Swelling Verified 04/14/20 15:11 Home Medications Medication Instructions Recorded Confirmed Last Taken Type Aspirin [Aspirin BABY CHEW TAB] 81 mg PO DAILY 04/15/20 04/15/20 04/14/20 History Atenolol 50 mg PO DAILY 04/15/20 04/15/20 04/14/20 History Atorvastatin Calcium [Lipitor] 80 mg PO DAILY 04/15/20 04/15/20 04/14/20 History Azithromycin [Zithromax] 250 mg PO DAILY 04/15/20 04/15/20 04/14/20 History Dabigatran Etexilate Mesylate 150 mg PO BID 04/15/20 04/15/20 04/14/20 History [Pradaxa] ISOSORBIDE MONOnitrate [Imdur ER] 30 mg PO DAILY 04/15/20 04/15/20 04/14/20 History Losartan [Cozaar] 25 mg PO DAILY 04/15/20 04/15/20 Unknown History Metformin HCl [metFORMIN] 1,000 mg PO BID 04/15/20 04/15/20 04/14/20 History Potassium Chloride [K-Dur] 10 meq PO QDAY 04/15/20 04/15/20 04/14/20 History glipiZIDE [Glucotrol] 10 mg PO BID 04/15/20 04/15/20 04/14/20 History hydroCHLOROthiazide 12.5 mg PO DAILY 04/15/20 04/15/20 04/14/20 History [Hydrochlorothiazide] lisinopriL [Zestril TAB] 40 mg PO QDAY 04/15/20 04/15/20 04/14/20 History Active Meds: Active Medications Acetaminophen (Acetaminophen 325 Mg Tab) 650 mg PO Q4H PRN PRN Reason: Pain MILD(1-3)/Fever >100.5/GRAY Last Admin: 04/15/20 18:08 Dose: 650 mg Documented by: Dexamethasone (Dexamethasone 4 Mg/Ml Vial) 6 mg IV Q24HR DURGA Last Admin: 04/15/20 09:25 Dose: 6 mg Documented by: Dextrose (Dextrose 50% In Water (25gm) 50 Ml Syringe) 0 ml IV Q30MIN PRN; Pr otocol PRN Reason: Hypoglycemia Heparin Sodium (Porcine) (Heparin 5,000 Unit/1 Ml Vial) 5,000 unit SUB-Q Q8HR DURGA Last Admin: 04/15/20 13:20 Dose: 5,000 unit Documented by: Ceftriaxone Sodium (Rocephin/Ns 2 Gm/100 Ml) 2 gm in 100 mls @ 200 mls/hr IV Q24HR DURGA; Protocol Last Admin: 04/15/20 09:25 Dose: 200 mls/hr Documented by: Azithromycin (Zithromax/Ns) 500 mg in 250 mls @ 250 mls/hr IV Q24HR DURGA; Protocol Last Admin: 04/15/20 10:44 Dose: 250 mls/hr Documented by: REMDESIVIR 100 mg/ Sodium (Chloride) 250 mls @ 500 mls/hr IV Q24HR@2100 DURGA Stop: 04/19/20 21:29 Sodium Phosphate 30 mmol/ (Sodium Chloride) 510 mls @ 125 mls/hr IV ONCE ONE Stop: 04/15/20 19:31 Last Admin: 04/15/20 16:27 Dose: 125 mls/hr Documented by: Insulin Human Regular (Insulin Regular, Human 100 Units/1 Ml) 0 units SUB-Q ACHS [facility]; Protocol Last Admin: 04/15/20 17:36 Dose: 3 units Documented by: Magnesium Hydroxide (Magnesium Hydroxide (Mom) Oral Liqd Udc) 30 ml PO Q4H PRN PRN Reason: Constipation Morphine Sulfate (Morphine 2 Mg/1 Ml Inj) 2 mg IV Q4H PRN PRN Reason: Pain, Moderate (4-6) Ondansetron HCl (Ondansetron 4 Mg/2 Ml Inj) 4 mg IV Q8H PRN PRN Reason: Nausea And Vomiting Sodium Chloride (Sodium Chloride 0.9% 10 Ml Flush Syringe) 10 ml IV BID [facility] Last Admin: 04/15/20 09:26 Dose: 10 ml Documented by: Sodium Chloride (Sodium Chloride 0.9% 10 Ml Flush Syringe) 10 ml IV PRN PRN PRN Reason: LINE FLUSH Sodium Chloride (Sodium Chloride 0.9% 50 Ml Ivpb) 50 ml IV Q24HR@2100 [facility] Stop: 04/19/20 21:01 Last Admin: 04/15/20 13:21 Dose: 50 ml Documented by: Review of Systems All systems: negative Physical Examination Vital signs: Vital Signs Temp Pulse Resp BP Pulse Ox 99.9 F H 83 22 153/78 95 04/14/20 15:11 04/14/20 15:11 04/14/20 15:11 04/14/20 15:11 04/14/20 15:11 Vital Signs - 24 hr 04/14/20 04/14/20 04/14/20 22:48 22:50 22:55 Temperature 100.4 F H Pulse Rate Respiratory 20 Rate Blood Pressure Blood Pressure [Left] O2 Sat by Pulse 91 90 Oximetry 04/14/20 04/14/20 04/14/20 23:00 23:16 23:30 Temperature Pulse Rate 88 86 84 Respiratory 16 22 35 H Rate Blood Pressure 166/77 166/77 151/85 Blood Pressure [Left] O2 Sat by Pulse 88 95 97 Oximetry 04/14/20 04/15/20 04/15/20 23:46 00:00 00:15 Temperature Pulse Rate 86 86 84 Respiratory 28 H 24 26 H Rate Blood Pressure 152/87 151/92 157/85 Blood Pressure [Left] O2 Sat by Pulse 95 93 94 Oximetry 0104/15/20 04/15/20 00:31 00:44 00:45 Temperature Pulse Rate 84 85 Respiratory 16 33 H 18 Rate Blood Pressure 157/85 144/83 Blood Pressure [Left] O2 Sat by Pulse 100 94 Oximetry 04/15/20 04/15/20 04/15/20 01:00 01:15 01:31 Temperature Pulse Rate 79 78 77 Respiratory 34 H 30 H 29 H Rate Blood Pressure 143/71 127/72 149/79 Blood Pressure [Left] O2 Sat by Pulse 94 93 91 Oximetry 04/15/20 04/15/20 04/15/20 01:45 01:53 02:00 Temperature Pulse Rate 75 76 75 Respiratory 26 H 18 33 H Rate Blood Pressure 150/84 137/76 Blood Pressure 150/84 [Left] O2 Sat by Pulse 92 95 92 Oximetry 04/15/20 04/15/20 04/15/20 02:15 02:30 03:21 Temperature Pulse Rate 75 73 Respiratory 31 H 33 H 33 H Rate Blood Pressure 139/80 136/73 Blood Pressure [Left] O2 Sat by Pulse 91 94 97 Oximetry 04/15/20 04/15/20 04/15/20 08:33 12:49 17:06 Temperature 99.2 F 98.7 F 99.0 F Pulse Rate 72 74 77 Respiratory 22 18 19 Rate Blood Pressure 163/94 144/91 172/92 Blood Pressure [Left] O2 Sat by Pulse 99 98 95 Oximetry General appearance: no acute distress, alert Eyes: non-icteric ENT: oropharynx moist Neck: supple Effort: normal Ascultation: Bilateral: rales Cardiovascular: regular rate and rhythm (no mrg) Gastrointestinal: normoactive bowel sounds, soft, non-tender Integumentary: normal Extremities: no cyanosis, no edema, pink and warm normal mental status, non-focal exam, pupils equal and round, CN II-XII normal mood appropriate, affect normal Results - Laboratory Findings CBC and BMP: 04/14/20 15:35 04/14/20 23:05 PT/INR, D-dimer D-Dimer 664.34 ng/mlDDU (0-234) H 04/14/20 23:05 Abnormal lab findings: Abnormal Labs 04/14/20 04/14/20 04/14/20 15:35 15:35 15:35 WBC 3.6 L [place] % (Auto) 14.5 H Lymph # (Auto) 1.0 L D-Dimer Potassium 3.3 L BUN 23 H Creatinine 1.4 H POC Glucose Phosphorus 1.20 L Magnesium 1.50 L Ferritin Lactate Dehydrogenase C-Reactive Protein Total Protein 6.1 L Albumin 3.7 L Urine WBC (Auto) Salicylates Acetaminophen Coronavirus (PCR) 04/14/20 04/14/20 04/14/20 15:41 15:41 16:11 WBC [place] % (Auto) Lymph # (Auto) D-Dimer Potassium BUN Creatinine POC Glucose Phosphorus Magnesium Ferritin Lactate Dehydrogenase C-Reactive Protein Total Protein Albumin Urine WBC (Auto) 27.0 H Salicylates 1.1 L Acetaminophen 5.0 L Coronavirus (PCR) 04/14/20 04/14/20 04/14/20 23:05 23:05 23:05 WBC [place] % (Auto) Lymph # (Auto) D-Dimer 664.34 H Potassium BUN Creatinine POC Glucose Phosphorus Magnesium Ferritin 388.0 H Lactate Dehydrogenase 380 H C-Reactive Protein 5.20 H Total Protein Albumin Urine WBC (Auto) Salicylates Acetaminophen Coronavirus (PCR) 04/15/20 04/15/20 04/15/20 08:32 13:05 17:05 WBC [place] % (Auto) Lymph # (Auto) D-Dimer Potassium BUN Creatinine POC Glucose 281 H 315 H 221 H Phosphorus Magnesium Ferritin Lactate Dehydrogenase C-Reactive Protein Total Protein Albumin Urine WBC (Auto) Salicylates Acetaminophen Coronavirus (PCR) 04/15/20 Unknown WBC [place] % (Auto) Lymph # (Auto) D-Dimer Potassium BUN Creatinine POC Glucose Phosphorus Magnesium Ferritin Lactate Dehydrogenase C-Reactive Protein Total Protein Albumin Urine WBC (Auto) Salicylates Acetaminophen Coronavirus (PCR) Positive A - Diagnostic Findings Chest x-ray: report reviewed, image reviewed Assessment and Plan Imp: 1. Covid-19 2. Viral pneumonia 3. Acute respiratory failure, hypoxia 4. Obesity 5. FRANSICO 6. CAD 7. Leukopenia Rec: 1. Decadron x 10 days 2. Remdesivir x 5 days 3. Avoid volume overload 4. ABX pending procal. level 5. Agree w/ V/Q scan 6. Monitor oxygenation and clinical symptoms closely 7. Complex decision-making Plan of care reviewed w/ patient, she understands/agrees Thanks kindly for the consult, will follow closely
[2020-04-15] MEDS ORDERED: LOSARTAN 25 MG TAB PO SCH (21:00)
[2020-04-15] MEDS: atenoloL 50 MG TAB PO SCH (22:38)
[2020-04-15] MEDS: hydroCHLOROthiazide 12.5 MG CAP PO SCH (22:38)
[2020-04-15] MEDS: POTASSIUM CHLORIDE ER 10 MEQ TAB PO SCH (22:39)
[2020-04-15] MEDS: LISINOPRIL 40 MG TAB PO SCH (22:39)
[2020-04-15] MEDS: metFORMIN 500 MG TAB PO SCH (22:40)
[2020-04-16] MEDS: HEPARIN 5,000 UNIT/1 ML VIAL SUB-Q SCH ×3 (05:28→21:46)
[2020-04-16 06:05] LABS: Hematocrit 33.1 % (30.3-42.9); Hemoglobin 10.8 gm/dl (10.1-14.3); Mean Corpuscular HGB Conc 33 % (30-34); Mean Corpuscular Volume 91 fl (79-97); Platelet Count 232 K/mm3 (140-440); Red Blood Count 3.65 M/mm3 (3.65-5.03); Red Cell Distribution Width 13.8 % (13.2-15.2)
[2020-04-16 06:27] LABS: Calcium 9.3 mg/dL (8.4-10.2)
--- NOTE | 2020-04-16 08:15 | Nuclear Medicine Report ---
NUCLEAR MEDICINE PERFUSION LUNG SCAN INDICATION / CLINICAL INFORMATION: shortness of breath. TECHNIQUE: 5 mCi of Tc-99m MAA were given by IV. COMPARISON: Chest radiograph dated 04/14/2020. FINDINGS: PERFUSION: No significant perfusion defects. ADDITIONAL FINDINGS: None. IMPRESSION: 1. Low probability for pulmonary embolism. Signer Name: Roger Powell MD Signed: 04/16/2020 8:11 AM Workstation Name: [id number]
--- NOTE | 2020-04-16 08:45 | Progress Note ---
Assessment and Plan Cultures: Blood culture no growth to date Urine culture no growth to date A/P: 64-year-old female past medical history CAD, HTN admitted with COVID-19 pneumonia #COVID-19 pneumonia: Patient presented with a week of symptoms, chest x-ray with diffuse bilateral infiltrates, admission O2 88% sats on room air. Inflammatory markers elevated. VQ scan low probability for PE. #Acute hypoxemic respiratory failure: Likely secondary to COVID-19 infection. #Leukopenia: Likely secondary to COVID-19 #Obesity #Mild confusion: Likely secondary to COVID-19. #FRANSICO resolved. #UTI: Urine culture no growth. On ceftriaxone. Recs: -Continue dexamethasone 6 mg IV/PO daily for 10 days -Continue remdesivir total 5 days -Obtain q48-72h inflammatory markers - ferritin, Ddimer, CRP, LDH -Continue ceftriaxone 2 gm IV qday and azithromycin 500 mg PO qday, if procalcitonin <0.25 ng/mL stop antibiotics -Follow-up procalcitonin -Anticoagulation per hospital protocol -Proning as able -Obtain lower extremity ultrasound rule out DVT. Sarah Webb MD [facility] ([facility]) Office [phone] Objective - Constitutional Vitals: Vital Signs Temp Pulse Resp BP Pulse Ox 98.7 F 62 20 150/81 95 04/16/20 04:43 04/16/20 04:43 04/16/20 04:43 04/16/20 04:43 04/16/20 04:43 Temperature -Last 24 Hours Temperature 98.7 F Temperature 98.6 F Temperature 99.0 F Temperature 98.7 F - Labs CBC & Chem 7: 04/16/20 05:17 04/16/20 05:17 Labs: Abnormal lab results 04/15/20 04/15/20 04/15/20 Range/Units 13:05 17:05 21:23 Potassium (3.6-5.0) mmol/L BUN (7-17) mg/dL Glucose (65-100) mg/dL POC Glucose 315 H 221 H 147 H (70-105) mg/dL Coronavirus (PCR) (Negative) 04/15/20 04/16/20 04/16/20 Range/Units Unknown 05:17 07:42 Potassium 3.4 L (3.6-5.0) mmol/L BUN 22 H (7-17) mg/dL Glucose 128 H (65-100) mg/dL POC Glucose 119 H (70-105) mg/dL Coronavirus (PCR) Positive A (Negative)
[2020-04-16] MEDS ORDERED: DEXTROSE 50% IN WATER (25GM) 50 ML SYRINGE IV PRN (09:29)
--- NOTE | 2020-04-16 09:31 | Progress Note ---
Assessment and Plan Assessment and plan: 64-year-old female with known history of coronary artery disease, hypertension, presenting to the emergency room today complaining of cough and loss of smell and taste over the past 1 week. Patient was diagnosed with COVID-19 positive at a [place] facility yesterday. Symptoms have become worse today and she has also been a little confused. She has become increasingly forgetful. She was informed in the [place] facility that she had bilateral pneumonia. Upon arrival here in the emergency room patient was hypoxic with O2 saturation in the 80s. Chest x-ray reveals bilateral infiltrate. Labs reviewed mild hypokalemia. Patient admitted with pneumonia possibly secondary to COVID-19. She was started on empiric IV antibiotics and IV steroid. COVID-19 pneumonia Sepsis secondary to Covid pneumonia COVID-19 Hypokalemia now resolved Acute respiratory failure with hypoxia Hypophosphatemia Hypomagnesemia Acute cystitis Acute kidney injury with vasomotor nephropathy Obesity Plan Continue remdesivir and Decadron as prescribed. ID input noted. Continue to wean oxygen nursing staff asked to be has wean the patient down to 2 L this morning Continue vitamins as risk prescribed Covid test came back positive Monitor electrolytes DVT and GI prophylaxis Continue to monitor inflammatory markers and monitor renal function as remdesivir may need to be discontinued if worsening renal function. Plan discussed in detail with the patient 04/16: Blood pressure medicines adjusted. Will obtain echocardiogram monitoring. We will also obtain cardiology consultation considering the patient's clinical condition. Continue steroid remdesivir wean as tolerated. History Interval history: Patient seen and examined resting comfortably at this time still with shortness of breath, but reports some improvement. Hospitalist Physical - Physical exam Narrative exam: VITAL SIGNS: Reviewed. GENERAL: The patient appears normally developed, lethargic vital signs as documented. HEAD: No signs of head trauma. EYES: Pupils are equal. Extraocular motions intact. EARS: Hearing grossly intact. MOUTH: Oropharynx is normal. NECK: No adenopathy, no JVD. CHEST: Chest with diminished breath sounds bilaterally. No wheezes, rales, or rhonchi. CARDIAC: Regular rate and rhythm. S1 and S2, without murmurs, gallops, or rubs. VASCULAR: No Edema. Peripheral pulses normal and equal in all extremities. ABDOMEN: Soft, non tender and non distended. No rebound or guarding, and no masses palpated. Bowel Sounds normal. MUSCULOSKELETAL: Good range of motion of all major joints. Extremities without clubbing, cyanosis or edema. NEUROLOGIC EXAM: Alert and oriented x 3 No focal sensory or strength deficits. Speech normal. Follows commands. PSYCHIATRIC: Mood normal. SKIN: detail exam as documented in skin assessment - Constitutional Vitals: Temp Pulse Resp BP Pulse Ox 98.7 F 62 16 150/81 95 04/16/20 04:43 04/16/20 04:43 04/16/20 08:25 04/16/20 04:43 04/16/20 04:43 General appearance: Present: no acute distress, well-nourished Results - Labs CBC & Chem 7: 04/16/20 05:17 04/16/20 05:17 Labs: Laboratory Last Values WBC 4.9 K/mm3 (4.5-11.0) 04/16/20 05:17 RBC 3.65 M/mm3 (3.65-5.03) 04/16/20 05:17 Hgb 10.8 gm/dl (10.1-14.3) 04/16/20 05:17 Hct 33.1 % (30.3-42.9) 04/16/20 05:17 MCV 91 fl (79-97) 04/16/20 05:17 MCH 30 pg (28-32) 04/16/20 05:17 MCHC 33 % (30-34) 04/16/20 05:17 RDW 13.8 % (13.2-15.2) 04/16/20 05:17 Plt Count 232 K/mm3 (140-440) 04/16/20 05:17 Lymph % (Auto) 28.0 % (13.4-35.0) 04/14/20 15:35 [place] % (Auto) Pan [place]er 04/16/20 05:17 Eos % (Auto) 0.1 % (0.0-4.3) 04/14/20 15:35 Baso % (Auto) 0.3 % (0.0-1.8) 04/14/20 15:35 Lymph # (Auto) 1.0 K/mm3 (1.2-5.4) L 04/14/20 15:35 [place] # (Auto) 0.5 K/mm3 (0.0-0.8) 04/14/20 15:35 Eos # (Auto) 0.0 K/mm3 (0.0-0.4) 04/14/20 15:35 Baso # (Auto) 0.0 K/mm3 (0.0-0.1) 04/14/20 15:35 Seg Neutrophils % 57.1 % (40.0-70.0) 04/14/20 15:35 Seg Neutrophils # 2.0 K/mm3 (1.8-7.7) 04/14/20 15:35 PT 13.1 Sec. (12.2-14.9) 04/16/20 05:17 INR 1.00 (0.87-1.13) 04/16/20 05:17 D-Dimer 664.34 ng/mlDDU (0-234) H 04/14/20 23:05 Sodium 141 mmol/L (137-145) 04/16/20 05:17 Potassium 3.4 mmol/L (3.6-5.0) L 04/16/20 05:17 Chloride 104.9 mmol/L (98-107) 04/16/20 05:17 Carbon Dioxide 27 mmol/L (22-30) 04/16/20 05:17 Anion Gap 13 mmol/L 04/16/20 05:17 BUN 22 mg/dL (7-17) H 04/16/20 05:17 Creatinine 1.0 mg/dL (0.6-1.2) 04/16/20 05:17 Estimated GFR 56 ml/min 04/16/20 05:17 BUN/Creatinine Ratio 22 % 04/16/20 05:17 Glucose 128 mg/dL (65-100) H 04/16/20 05:17 POC Glucose 119 mg/dL (70-105) H 04/16/20 07:42 Lactic Acid 1.30 mmol/L (0.7-2.0) 04/14/20 15:41 Calcium 9.3 mg/dL (8.4-10.2) 04/16/20 05:17 Phosphorus 1.20 mg/dL (2.5-4.5) L 04/14/20 15:35 Magnesium 1.50 mg/dL (1.7-2.3) L 04/14/20 15:35 Ferritin 388.0 ng/mL (10.0-200.0) H 04/14/20 23:05 Total Bilirubin 0.40 mg/dL (0.1-1.2) 04/14/20 15:35 AST 27 units/L (5-40) 04/14/20 15:35 ALT 15 units/L (7-56) 04/14/20 15:35 Alkaline Phosphatase 62 units/L (35-129) 04/14/20 15:35 Ammonia 35.0 umol/L (25-60) 04/14/20 15:41 Lactate Dehydrogenase 380 units/L (91-180) H 04/14/20 23:05 C-Reactive Protein 5.20 mg/dL (0.00-1.30) H 04/14/20 23:05 Total Protein 6.1 g/dL (6.3-8.2) L 04/14/20 15:35 Albumin 3.7 g/dL (3.9-5) L 04/14/20 15:35 Albumin/Globulin Ratio 1.5 % 04/14/20 15:35 Urine Color Yellow (Yellow) 04/14/20 16:11 Urine Turbidity Clear (Clear) 04/14/20 16:11 Urine pH 5.0 (5.0-7.0) 04/14/20 16:11 Ur Specific [place] 1.022 (1.003-1.030) 04/14/20 16:11 Urine Protein >500 mg/dL (Negative) 04/14/20 16:11 Urine Glucose (UA) Neg mg/dL (Negative) 04/14/20 16:11 Urine Ketones Neg mg/dL (Negative) 04/14/20 16:11 Urine Blood Neg (Negative) 04/14/20 16:11 Urine Nitrite Neg (Negative) 04/14/20 16:11 Urine Bilirubin Neg (Negative) 04/14/20 16:11 Urine Urobilinogen < 2.0 mg/dL (<2.0) 04/14/20 16:11 Ur Leukocyte Esterase Sm (Negative) 04/14/20 16:11 Urine WBC (Auto) 27.0 /HPF (0.0-6.0) H 04/14/20 16:11 Urine RBC (Auto) 2.0 /HPF (0.0-6.0) 04/14/20 16:11 U Epithel Cells (Auto) 2.0 /HPF (0-13.0) 04/14/20 16:11 Urine Mucus Few /HPF 04/14/20 16:11 Salicylates 1.1 mg/dL (2.8-20.0) L 04/14/20 15:41 Acetaminophen 5.0 ug/mL (10.0-30.0) L 04/14/20 15:41 Coronavirus (PCR) Positive (Negative) A 04/15/20 Unknown Microbiology: Microbiology 04/14/20 15:52 Peripheral/Venous Blood Culture - Preliminary NO GROWTH AFTER 24 HOURS 04/14/20 15:41 Peripheral/Venous Blood Culture - Preliminary NO GROWTH AFTER 24 HOURS 04/14/20 16:11 Urine,Clean Catch Urine Culture - Preliminary NO GROWTH AFTER 24 HOURS [place]/IV: Voiding Method Toilet IV Catheter Type [Left INT / Saline Lock Antecubital] IV Catheter Type [Right Hand] INT / Saline Lock Active Medications - Current Medications Current Medications: Generic Name Dose Route Start Last Admin Trade Name Freq PRN Reason Stop Dose Admin Acetaminophen 650 mg 04/15/20 00:34 04/15/20 18:08 Acetaminophen 325 Mg Tab PO 650 mg Q4H PRN Administration Pain MILD(1-3)/Fever >100.5/GRAY Aspirin 81 mg 04/16/20 10:00 Aspirin 81 Mg Tab Chew PO QDAY [facility]UR[facility] Atenolol 50 mg 04/15/20 21:00 04/15/20 22:38 Atenolol 50 Mg Tab PO 50 mg QDAY [facility]UR[facility] Administration Atorvastatin Calcium 80 mg 04/15/20 22:00 04/15/20 22:38 Atorvastatin 40 Mg Tab PO 80 mg QHS DURGA Administration Dexamethasone 6 mg 04/16/20 10:00 Dexamethasone 4 Mg Tab PO 04/24/20 12:00 DAILY DURGA Dextrose 0 ml 04/15/20 00:34 Dextrose 50% In Water (25gm) 50 Ml Syringe IV Q30MIN PRN Hypoglycemia Protocol Dextrose 50 ml 04/16/20 09:29 Dextrose 50% In Water (25gm) 50 Ml Syringe IV Q30MIN PRN Hypoglycemia Protocol Glipizide 10 mg 04/16/20 08:00 Glipizide 10 Mg Tab PO BIDDIAB [facility] Heparin Sodium (Porcine) 5,000 unit 04/15/20 06:00 04/16/20 05:28 Heparin 5,000 Unit/1 Ml Vial SUB-Q 5,000 unit Q8HR [facility] Administration Hydrochlorothiazide 12.5 mg 04/15/20 21:00 04/15/20 22:38 Hydrochlorothiazide 12.5 Mg Cap PO 12.5 mg QDAY [facility] Administration Ceftriaxone Sodium 2 gm in 100 mls @ 200 mls/hr 04/15/20 10:00 04/15/20 09:25 Rocephin/Ns 2 Gm/100 Ml IV 200 mls/hr Q24HR [facility] Administration Protocol Azithromycin 500 mg in 250 mls @ 250 mls/hr 04/15/20 10:00 04/15/20 10:44 Zithromax/Ns IV 04/18/20 10:59 250 mls/hr Q24HR [facility] Administration Protocol REMDESIVIR 100 mg/ Sodium 250 mls @ 500 mls/hr 04/16/20 21:00 Chloride IV 04/19/20 21:29 Q24HR@2100 [facility] Insulin Human Lispro 0 unit 04/16/20 11:30 Insulin Lispro 100 Unit/Ml SUB-Q ACHS [facility] Protocol Insulin Human Regular 0 units 04/15/20 07:30 04/15/20 22:40 Insulin Regular, Human 100 Units/1 Ml SUB-Q Not Given [facility] Protocol Isosorbide Mononitrate 30 mg 04/15/20 21:00 04/15/20 22:39 Isosorbide Mononitrate Er 30 Mg Tab PO 30 mg QDAY [facility] Administration Lisinopril 40 mg 04/15/20 21:00 04/15/20 22:39 Lisinopril 40 Mg Tab PO 40 mg QDAY [facility] Administration Magnesium Hydroxide 30 ml 04/15/20 00:34 Magnesium Hydroxide (Mom) Oral Liqd Udc PO Q4H PRN Constipation Morphine Sulfate 2 mg 04/15/20 00:34 Morphine 2 Mg/1 Ml Inj IV Q4H PRN Pain, Moderate (4-6) Ondansetron HCl 4 mg 04/15/20 00:34 Ondansetron 4 Mg/2 Ml Inj IV Q8H PRN Nausea And Vomiting Potassium Chloride 10 meq 04/15/20 21:00 04/15/20 22:39 Potassium Chloride Er 10 Meq Tab PO 10 meq QDAY [facility] Administration Sodium Chloride 10 ml 04/15/20 10:00 04/15/20 22:00 Sodium Chloride 0.9% 10 Ml Flush Syringe IV 10 ml BID [facility] Administration Sodium Chloride 10 ml 04/15/20 00:34 Sodium Chloride 0.9% 10 Ml Flush Syringe IV PRN PRN LINE FLUSH Sodium Chloride 50 ml 04/15/20 14:00 04/15/20 13:21 Sodium Chloride 0.9% 50 Ml Ivpb IV 04/19/20 21:01 50 ml Q24HR@2100 [facility] Administration Nutrition/Malnutrition Assess - Dietary Evaluation Nutrition/Malnutrition Findings: Nutrition Notes Start: 04/15/20 07:16 Freq: Status: Active Protocol: Document 04/15/20 07:16 LP (Rec: 04/15/20 07:17 LP [id number]) Nutrition Notes Need for Assessment generated from: MD Order Initial or Follow up Brief Note Subjective/Other Information Consult for diet education. Pt still in ED. Nutrition Intervention Follow-Up By: 04/16/20 Additional Comments Follow for diet education
--- NOTE | 2020-04-16 09:40 | Progress Note ---
Assessment and Plan 64 y/o female, hypertensive, admitted with acute respiratory failure secondary to COVID 19 1. Steroids for 10 days, Remdesivir for 5 2. Needs better BP control 3. Suggest checking 2D echo to evaluate for pulmonary HTN 4. Daily net negative state if possible 5. Prone as tolerated during the day and sleep prone at night. 6. Guarded prognosis, would ask [facility] if they have any outpatient records on her that might help with management. Subjective Date of service: 04/16/20 Interval history: No acute events. Hypertensive but sats are stable on 2 liters. Patient was admitted here 7-8 years ago under [facility] but I am not able to see any documentation from the admission. Currently on steroids and remdesivir Objective Vital Signs - 12hr 04/16/20 04/16/20 04:43 08:25 Temperature 98.7 F Pulse Rate 62 Respiratory 20 16 Rate Blood Pressure 150/81 O2 Sat by Pulse 95 Oximetry Constitutional: no acute distress, alert Eyes: non-icteric ENT: oropharynx moist Neck: supple Effort: normal Ascultation: Bilateral: rales Cardiovascular: regular rate and rhythm (no mrg) Gastrointestinal: normoactive bowel sounds, soft, non-tender Integumentary: normal Extremities: no cyanosis, no edema, pink and warm Neurologic: normal mental status, non-focal exam, pupils equal and round, CN II- XII normal Psychiatric: mood appropriate, affect normal CBC and BMP: 04/16/20 05:17 04/16/20 05:17 ABG, PT/INR, D-dimer: PT/INR, D-dimer PT 13.1 Sec. (12.2-14.9) 04/16/20 05:17 INR 1.00 (0.87-1.13) 04/16/20 05:17 D-Dimer 664.34 ng/mlDDU (0-234) H 04/14/20 23:05 Abnormal lab findings: Abnormal Labs 04/14/20 04/14/20 04/14/20 15:35 15:35 15:35 WBC 3.6 L [place] % (Auto) 14.5 H Lymph # (Auto) 1.0 L D-Dimer Potassium 3.3 L BUN 23 H Creatinine 1.4 H Glucose POC Glucose Phosphorus 1.20 L Magnesium 1.50 L Ferritin Lactate Dehydrogenase C-Reactive Protein Total Protein 6.1 L Albumin 3.7 L Urine WBC (Auto) Salicylates Acetaminophen Coronavirus (PCR) 04/14/20 04/14/20 04/14/20 15:41 15:41 16:11 WBC [place] % (Auto) Lymph # (Auto) D-Dimer Potassium BUN Creatinine Glucose POC Glucose Phosphorus Magnesium Ferritin Lactate Dehydrogenase C-Reactive Protein Total Protein Albumin Urine WBC (Auto) 27.0 H Salicylates 1.1 L Acetaminophen 5.0 L Coronavirus (PCR) 04/14/20 04/14/20 04/14/20 23:05 23:05 23:05 WBC [place] % (Auto) Lymph # (Auto) D-Dimer 664.34 H Potassium BUN Creatinine Glucose POC Glucose Phosphorus Magnesium Ferritin 388.0 H Lactate Dehydrogenase 380 H C-Reactive Protein 5.20 H Total Protein Albumin Urine WBC (Auto) Salicylates Acetaminophen Coronavirus (PCR) 04/15/20 04/15/20 04/15/20 08:32 13:05 17:05 WBC [place] % (Auto) Lymph # (Auto) D-Dimer Potassium BUN Creatinine Glucose POC Glucose 281 H 315 H 221 H Phosphorus Magnesium Ferritin Lactate Dehydrogenase C-Reactive Protein Total Protein Albumin Urine WBC (Auto) Salicylates Acetaminophen Coronavirus (PCR) 04/15/20 04/15/20 04/16/20 21:23 Unknown 05:17 WBC [place] % (Auto) Lymph # (Auto) D-Dimer Potassium 3.4 L BUN 22 H Creatinine Glucose 128 H POC Glucose 147 H Phosphorus Magnesium Ferritin Lactate Dehydrogenase C-Reactive Protein Total Protein Albumin Urine WBC (Auto) Salicylates Acetaminophen Coronavirus (PCR) Positive A 04/16/20 07:42 WBC [place] % (Auto) Lymph # (Auto) D-Dimer Potassium BUN Creatinine Glucose POC Glucose 119 H Phosphorus Magnesium Ferritin Lactate Dehydrogenase C-Reactive Protein Total Protein Albumin Urine WBC (Auto) Salicylates Acetaminophen Coronavirus (PCR)
--- NOTE | 2020-04-16 09:42 | XRay Report ---
CHEST 1 VIEW 04/16/2020 8:35 AM INDICATION / CLINICAL INFORMATION: pneumonia. COMPARISON: 04/14/2019 FINDINGS: SUPPORT DEVICES: None. HEART / MEDIASTINUM: No significant abnormality. LUNGS / PLEURA: Stable patchy bilateral pulmonary opacities. No pneumothorax. ADDITIONAL FINDINGS: No significant additional findings. IMPRESSION: 1. No significant change. Signer Name: Roger Powell MD Signed: 04/16/2020 9:37 AM Workstation Name: [id number]
[2020-04-16] MEDS: cefTRIAXone/NS 2 GM/100 ML 2 GM/100 ML BAG IV SCH (10:26)
[2020-04-16] MEDS: glipiZIDE 10 MG TAB PO SCH ×2 (10:27→17:19)
[2020-04-16] MEDS: POTASSIUM CHLORIDE ER 10 MEQ TAB PO SCH (10:27)
[2020-04-16] MEDS: DEXAMETHASONE 4 MG TAB PO SCH (10:27)
[2020-04-16] MEDS: LISINOPRIL 40 MG TAB PO SCH (10:28)
[2020-04-16] MEDS: atenoloL 50 MG TAB PO SCH (10:28)
[2020-04-16] MEDS: ASPIRIN 81 MG TAB CHEW PO SCH (10:28)
[2020-04-16] MEDS: hydroCHLOROthiazide 12.5 MG CAP PO SCH (10:28)
[2020-04-16 10:48] LABS: Total Cells Counted 100
[2020-04-16 10:50] LABS: Burr Cells 1+; Platelet Estimate Consistent w Auto; Schistocytes Few
[2020-04-16] MEDS: AZITHROMYCIN/NS 500 MG/250 ML 500 MG/250 ML BAG IV SCH (11:17)
[2020-04-16] MEDS: INSULIN LISPRO 100 UNIT/ML SUB-Q SCH ×3 (12:10→22:43)
--- NOTE | 2020-04-16 13:16 | Consultation ---
History of Present Illness Consult date: 04/16/20 Requesting physician: JASON MEJIA Consult reason: shortness of breath History of present illness: The pt is a 64YO female [place] pt with a past medical history of reported CAD with PCI, HTN, DM, CVA. She presented yesterday with c/o cough and loss of smell and taste over the past 1 week. Patient was diagnosed with COVID-19 and BLE PNA at a [place] facility one day prior to presentation. Symptoms became worse on the day of presentation and pt developed confusion and thus additional medical eval/management was sought. Following arrival to ED, pt noted to be hypoxic with O2 saturation in the 80s. Chest x-ray shows bilateral infiltrates. Labs reviewed mild hypokalemia. Patient admitted with pneumonia, COVID-19 testing is positive. Past History Past Medical History: CAD, diabetes, hypertension, stroke Past Surgical History: PTCA Social history: no significant social history, full code. denies: smoking, alcohol abuse, prescription drug abuse, IV drug use Family history: no significant family history (no pulm issues reported) Medications and Allergies Allergies Allergy/AdvReac Type Severity Reaction Status Date / Time shellfish derived Allergy Swelling Verified 04/14/20 15:11 strawberry Allergy Swelling Verified 04/14/20 15:11 Home Medications Medication Instructions Recorded Confirmed Last Taken Type Aspirin [Aspirin BABY CHEW TAB] 81 mg PO DAILY 04/15/20 04/15/20 04/14/20 History Atenolol 50 mg PO DAILY 04/15/20 04/15/20 04/14/20 History Atorvastatin Calcium [Lipitor] 80 mg PO DAILY 04/15/20 04/15/20 04/14/20 History Azithromycin [Zithromax] 250 mg PO DAILY 04/15/20 04/15/20 04/14/20 History Dabigatran Etexilate Mesylate 150 mg PO BID 04/15/20 04/15/20 04/14/20 History [Pradaxa] ISOSORBIDE MONOnitrate [Imdur ER] 30 mg PO DAILY 04/15/20 04/15/20 04/14/20 History Losartan [Cozaar] 25 mg PO DAILY 04/15/20 04/15/20 Unknown History Metformin HCl [metFORMIN] 1,000 mg PO BID 04/15/20 04/15/20 04/14/20 History Potassium Chloride [K-Dur] 10 meq PO QDAY 04/15/20 04/15/20 04/14/20 History glipiZIDE [Glucotrol] 10 mg PO BID 04/15/20 04/15/20 04/14/20 History hydroCHLOROthiazide 12.5 mg PO DAILY 04/15/20 04/15/20 04/14/20 History [Hydrochlorothiazide] lisinopriL [Zestril TAB] 40 mg PO QDAY 04/15/20 04/15/20 04/14/20 History Active Meds: Active Medications Acetaminophen (Acetaminophen 325 Mg Tab) 650 mg PO Q4H PRN PRN Reason: Pain MILD(1-3)/Fever >100.5/GRAY Last Admin: 04/15/20 18:08 Dose: 650 mg Documented by: Aspirin (Aspirin 81 Mg Tab Chew) 81 mg PO QDAY [facility] Last Admin: 04/16/20 10:28 Dose: 81 mg Documented by: Atenolol (Atenolol 50 Mg Tab) 50 mg PO QDAY [facility] Last Admin: 04/16/20 10:28 Dose: 50 mg Documented by: Atorvastatin Calcium (Atorvastatin 40 Mg Tab) 80 mg PO QHS [facility] Last Admin: 04/15/20 22:38 Dose: 80 mg Documented by: Dexamethasone (Dexamethasone 4 Mg Tab) 6 mg PO DAILY [facility] Stop: 04/24/20 12:00 Last Admin: 04/16/20 10:27 Dose: 6 mg Documented by: Dextrose (Dextrose 50% In Water (25gm) 50 Ml Syringe) 50 ml IV Q30MIN PRN; Protocol PRN Reason: Hypoglycemia Glipizide (Glipizide 10 Mg Tab) 10 mg PO BIDDIAB [facility] Last Admin: 04/16/20 10:27 Dose: 10 mg Documented by: Heparin Sodium (Porcine) (Heparin 5,000 Unit/1 Ml Vial) 5,000 unit SUB-Q Q8HR [facility] Last Admin: 04/16/20 05:28 Dose: 5,000 unit Documented by: Hydrochlorothiazide (Hydrochlorothiazide 12.5 Mg Cap) 12.5 mg PO QDAY [facility] Last Admin: 04/16/20 10:28 Dose: 12.5 mg Documented by: Ceftriaxone Sodium (Rocephin/Ns 2 Gm/100 Ml) 2 gm in 100 mls @ 200 mls/hr IV Q24HR [facility]; Protocol Last Admin: 04/16/20 10:26 Dose: 200 mls/hr Documented by: Azithromycin (Zithromax/Ns) 500 mg in 250 mls @ 250 mls/hr IV Q24HR [facility]; Protocol Stop: 04/18/20 10:59 Last Admin: 04/16/20 11:17 Dose: 250 mls/hr Documented by: REMDESIVIR 100 mg/ Sodium (Chloride) 250 mls @ 500 mls/hr IV Q24HR@2100 [facility] Stop: 04/19/20 21:29 Insulin Human Lispro (Insulin Lispro 100 Unit/Ml) 0 unit SUB-Q ACHS [facility]; Protocol Last Admin: 04/16/20 12:10 Dose: Not Given Documented by: Isosorbide Mononitrate (Isosorbide Mononitrate Er 30 Mg Tab) 30 mg PO QDAY [facility] Last Admin: 04/16/20 10:27 Dose: 30 mg Documented by: Lisinopril (Lisinopril 40 Mg Tab) 40 mg PO QDAY [facility] Last Admin: 04/16/20 10:28 Dose: 40 mg Documented by: Magnesium Hydroxide (Magnesium Hydroxide (Mom) Oral Liqd Udc) 30 ml PO Q4H PRN PRN Reason: Constipation Morphine Sulfate (Morphine 2 Mg/1 Ml Inj) 2 mg IV Q4H PRN PRN Reason: Pain, Moderate (4-6) Ondansetron HCl (Ondansetron 4 Mg/2 Ml Inj) 4 mg IV Q8H PRN PRN Reason: Nausea And Vomiting Potassium Chloride (Potassium Chloride Er 10 Meq Tab) 10 meq PO QDAY [facility] Last Admin: 04/16/20 10:27 Dose: 10 meq Documented by: Sodium Chloride (Sodium Chloride 0.9% 10 Ml Flush Syringe) 10 ml IV BID [facility] Last Admin: 04/16/20 10:28 Dose: 10 ml Documented by: Sodium Chloride (Sodium Chloride 0.9% 10 Ml Flush Syringe) 10 ml IV PRN PRN PRN Reason: LINE FLUSH Sodium Chloride (Sodium Chloride 0.9% 50 Ml Ivpb) 50 ml IV Q24HR@2100 [facility] Stop: 04/19/20 21:01 Last Admin: 04/15/20 13:21 Dose: 50 ml Documented by: Review of Systems All systems: negative (as per HPI) Physical Examination Vital Signs Temp Pulse Resp BP Pulse Ox 99.9 F H 83 22 153/78 95 04/14/20 15:11 04/14/20 15:11 04/14/20 15:11 04/14/20 15:11 04/14/20 15:11 Narrative exam: agree with physical examination per primary Results 04/16/20 05:17 04/16/20 05:17 Coagulation 04/16/20 Range/Units 05:17 PT 13.1 (12.2-14.9) Sec. INR 1.00 (0.87-1.13) CBC 04/16/20 Range/Units 05:17 WBC 4.9 (4.5-11.0) K/mm3 RBC 3.65 (3.65-5.03) M/mm3 Hgb 10.8 (10.1-14.3) gm/dl Hct 33.1 (30.3-42.9) % Plt Count 232 (140-440) K/mm3 Comprehensive Metabolic Panel 04/16/20 Range/Units 05:17 Sodium 141 (137-145) mmol/L Potassium 3.4 L (3.6-5.0) mmol/L Chloride 104.9 (98-107) mmol/L Carbon Dioxide 27 (22-30) mmol/L BUN 22 H (7-17) mg/dL Creatinine 1.0 (0.6-1.2) mg/dL Glucose 128 H (65-100) mg/dL Calcium 9.3 (8.4-10.2) mg/dL - Imaging and Cardiology EKG: report reviewed, image reviewed EKG interpretations - Telemetry EKG Rhythm: Sinus Rhythm - EKG Sinus rhythms and dysrhythmias: sinus rhythm Assessment and Plan Agree with present cardiac management. F/u pro-BNP. Plan to obtain tte once COVID-19 infection is adequately managed. Will follow. The patient has been seen in conjunction with Dr. Jayjay Monson who agrees with the assessment and plan of care. - Patient Problems (1) COVID-19 virus infection Current Visit: Yes Status: Acute (2) Pneumonia Current Visit: Yes Status: Acute (3) CAD (coronary artery disease) Current Visit: Yes Status: Chronic Plan to address problem: s/p PCI per chart (4) HTN (hypertension) Current Visit: Yes Status: Chronic (5) Diabetes Current Visit: Yes Status: Chronic (6) History of CVA (cerebrovascular accident) Current Visit: Yes Status: Chronic
[2020-04-16] MEDS: metFORMIN 500 MG TAB PO SCH (13:51)
[2020-04-16 17:12] LABS: C-Reactive Protein 2.1 mg/dL (0.00-1.30)
[2020-04-16] MEDS: SODIUM CHLORIDE 0.9% 50 ML IVPB IV SCH (21:47)
[2020-04-16] MEDS: REMDESIVIR 100 MG in SODIUM CHLORIDE 0.9% 250ML 250 ML IV SCH (21:47)
[2020-04-17] MEDS: HEPARIN 5,000 UNIT/1 ML VIAL SUB-Q SCH ×4 (06:10→22:38)
[2020-04-17 06:23] LABS: Alanine Aminotransferase 12 units/L (7-56); Albumin 3.3 g/dL (3.9-5); BUN/Creatinine Ratio 23; Blood Urea Nitrogen 23 mg/dL (7-17); Calcium 9.7 mg/dL (8.4-10.2); Hemolysis Index 3
[2020-04-17 06:24] LABS: Bilirubin,Direct < 0.2 mg/dL (0-0.2)
--- NOTE | 2020-04-17 08:37 | Progress Note ---
Assessment and Plan Cultures: Blood culture no growth to date Urine culture no growth to date A/P: 64-year-old female past medical history CAD, HTN admitted with COVID-19 pneumonia #COVID-19 pneumonia: Patient presented with a week of symptoms, chest x-ray with diffuse bilateral infiltrates, admission O2 88% sats on room air. Inflammatory markers elevated. VQ scan low probability for PE. Procalcitonin is low. #Acute hypoxemic respiratory failure: Likely secondary to COVID-19 infection. Remains on 2 L nasal cannula. #Leukopenia: Likely secondary to COVID-19 #Obesity #Mild confusion: Likely secondary to COVID-19. Resolved. #FRANSICO resolved. #UTI: Urine culture no growth. On ceftriaxone. Recs: -Continue dexamethasone 6 mg IV/PO daily for 10 days -Continue remdesivir total 5 days D2 of 5 -Obtain q48-72h inflammatory markers - ferritin, Ddimer, CRP, LDH -Continue ceftriaxone 2 gm IV qday for 3 days for UTI -Stop azithromycin, procalcitonin is low -Anticoagulation per hospital protocol -Proning as able -Obtain lower extremity ultrasound rule out DVT. Pending Sarah Webb MD [facility] ([facility]) Office [phone] Subjective Date of service: 04/17/20 Principal diagnosis: COVID-19 Interval history: Remains on 2 L nasal cannula, no fever, O2 sat down to 90%. No hypotension. No acute events per nursing staff. Objective - Exam Narrative Exam: Physical exam deferred to minimize COVID-19 transmission during pandemic. ER a nd internal medicine physical examination notes reviewed. - Constitutional Vitals: Vital Signs Temp Pulse Resp BP Pulse Ox 98.0 F 64 24 159/77 90 04/17/20 04:25 04/17/20 04:25 04/17/20 04:25 04/17/20 04:25 04/17/20 04:25 Temperature -Last 24 Hours Temperature 98.0 F Temperature 98.4 F Temperature 99.0 F Temperature 98.9 F - Labs CBC & Chem 7: 04/16/20 05:17 04/17/20 05:28 Labs: Abnormal lab results 04/16/20 04/16/20 04/16/20 Range/Units 05:17 11:14 16:20 Seg Neuts % (Manual) 76.0 H (40.0-70.0) % Lymphocytes % (Manual) 13.0 L (13.4-35.0) % Monocytes % (Manual) 11.0 H (0.0-7.3) % Lymphocytes # (Manual) 0.6 L (1.2-5.4) K/mm3 D-Dimer 543.86 H (0-234) ng/mlDDU Potassium (3.6-5.0) mmol/L BUN (7-17) mg/dL Glucose (65-100) mg/dL POC Glucose 119 H (70-105) mg/dL Magnesium (1.7-2.3) mg/dL Ferritin (10.0-200.0) ng/mL Lactate Dehydrogenase (91-180) units/L C-Reactive Protein (0.00-1.30) mg/dL NT-Pro-B Natriuret Pep (0-900) pg/mL Total Protein (6.3-8.2) g/dL Albumin (3.9-5) g/dL 04/16/20 04/16/20 04/16/20 Range/Units 16:20 16:20 16:23 Seg Neuts % (Manual) (40.0-70.0) % Lymphocytes % (Manual) (13.4-35.0) % Monocytes % (Manual) (0.0-7.3) % Lymphocytes # (Manual) (1.2-5.4) K/mm3 D-Dimer (0-234) ng/mlDDU Potassium (3.6-5.0) mmol/L BUN (7-17) mg/dL Glucose (65-100) mg/dL POC Glucose 168 H (70-105) mg/dL Magnesium (1.7-2.3) mg/dL Ferritin 416.4 H (10.0-200.0) ng/mL Lactate Dehydrogenase 323 H (91-180) units/L C-Reactive Protein 2.10 H (0.00-1.30) mg/dL NT-Pro-B Natriuret Pep (0-900) pg/mL Total Protein (6.3-8.2) g/dL Albumin (3.9-5) g/dL 04/16/20 04/17/20 04/17/20 Range/Units 21:34 05:28 05:28 Seg Neuts % (Manual) (40.0-70.0) % Lymphocytes % (Manual) (13.4-35.0) % Monocytes % (Manual) (0.0-7.3) % Lymphocytes # (Manual) (1.2-5.4) K/mm3 D-Dimer (0-234) ng/mlDDU Potassium 3.3 L (3.6-5.0) mmol/L BUN 23 H (7-17) mg/dL Glucose 160 H (65-100) mg/dL POC Glucose 260 H (70-105) mg/dL Magnesium 1.40 L (1.7-2.3) mg/dL Ferritin (10.0-200.0) ng/mL Lactate Dehydrogenase (91-180) units/L C-Reactive Protein (0.00-1.30) mg/dL NT-Pro-B Natriuret Pep 1144 H (0-900) pg/mL Total Protein 5.8 L (6.3-8.2) g/dL Albumin 3.3 L (3.9-5) g/dL
--- NOTE | 2020-04-17 08:55 | Progress Note ---
Assessment and Plan 64 y/o female, hypertensive, admitted with acute respiratory failure secondary to COVID 19 04/17/20: Stopped HCTZ and gave lasix 40. Prone if possible, despite low O2 requirement. Steroids and Remdesivir. Wean FiO2 for sats >88%. 1. Steroids for 10 days, Remdesivir for 5 2. Needs better BP control 3. Suggest checking 2D echo to evaluate for pulmonary HTN 4. Daily net negative state if possible 5. Prone as tolerated during the day and sleep prone at night. 6. Guarded prognosis, would ask [facility] if they have any outpatient records on her that might help with management. Subjective Date of service: 04/17/20 Principal diagnosis: COVID-19 Interval history: Still on 2 liters. BP remains elevated. Objective Vital Signs - 12hr 04/16/20 04/16/20 04/17/20 21:36 22:00 04:25 Temperature 98.4 F 98.0 F Pulse Rate 66 64 Respiratory 24 18 24 Rate Blood Pressure 170/91 159/77 O2 Sat by Pulse 92 90 Oximetry Constitutional: no acute distress, alert Eyes: non-icteric ENT: oropharynx moist Neck: supple Effort: normal Ascultation: Bilateral: rales Cardiovascular: regular rate and rhythm (no mrg) Gastrointestinal: normoactive bowel sounds, soft, non-tender Integumentary: normal Extremities: no cyanosis, no edema, pink and warm Neurologic: normal mental status, non-focal exam, pupils equal and round, CN II- XII normal Psychiatric: mood appropriate, affect normal CBC and BMP: 04/16/20 05:17 04/17/20 05:28 ABG, PT/INR, D-dimer: PT/INR, D-dimer PT 13.1 Sec. (12.2-14.9) 04/16/20 05:17 INR 1.00 (0.87-1.13) 04/16/20 05:17 D-Dimer 543.86 ng/mlDDU (0-234) H 04/16/20 16:20 Abnormal lab findings: Abnormal Labs 04/14/20 04/14/20 04/14/20 15:35 15:35 15:35 WBC 3.6 L [place] % (Auto) 14.5 H Lymph # (Auto) 1.0 L Seg Neuts % (Manual) Lymphocytes % (Manual) Monocytes % (Manual) Lymphocytes # (Manual) D-Dimer Potassium 3.3 L BUN 23 H Creatinine 1.4 H Glucose POC Glucose Phosphorus 1.20 L Magnesium 1.50 L Ferritin Lactate Dehydrogenase C-Reactive Protein NT-Pro-B Natriuret Pep Total Protein 6.1 L Albumin 3.7 L Urine WBC (Auto) Salicylates Acetaminophen Coronavirus (PCR) 04/14/20 04/14/20 04/14/20 15:41 15:41 16:11 WBC [place] % (Auto) Lymph # (Auto) Seg Neuts % (Manual) Lymphocytes % (Manual) Monocytes % (Manual) Lymphocytes # (Manual) D-Dimer Potassium BUN Creatinine Glucose POC Glucose Phosphorus Magnesium Ferritin Lactate Dehydrogenase C-Reactive Protein NT-Pro-B Natriuret Pep Total Protein Albumin Urine WBC (Auto) 27.0 H Salicylates 1.1 L Acetaminophen 5.0 L Coronavirus (PCR) 04/14/20 04/14/20 04/14/20 23:05 23:05 23:05 WBC [place] % (Auto) Lymph # (Auto) Seg Neuts % (Manual) Lymphocytes % (Manual) Monocytes % (Manual) Lymphocytes # (Manual) D-Dimer 664.34 H Potassium BUN Creatinine Glucose POC Glucose Phosphorus Magnesium Ferritin 388.0 H Lactate Dehydrogenase 380 H C-Reactive Protein 5.20 H NT-Pro-B Natriuret Pep Total Protein Albumin Urine WBC (Auto) Salicylates Acetaminophen Coronavirus (PCR) 04/15/20 04/15/20 04/15/20 08:32 13:05 17:05 WBC [place] % (Auto) Lymph # (Auto) Seg Neuts % (Manual) Lymphocytes % (Manual) Monocytes % (Manual) Lymphocytes # (Manual) D-Dimer Potassium BUN Creatinine Glucose POC Glucose 281 H 315 H 221 H Phosphorus Magnesium Ferritin Lactate Dehydrogenase C-Reactive Protein NT-Pro-B Natriuret Pep Total Protein Albumin Urine WBC (Auto) Salicylates Acetaminophen Coronavirus (PCR) 04/15/20 04/15/20 04/16/20 21:23 Unknown 05:17 WBC [place] % (Auto) Lymph # (Auto) Seg Neuts % (Manual) 76.0 H Lymphocytes % (Manual) 13.0 L Monocytes % (Manual) 11.0 H Lymphocytes # (Manual) 0.6 L D-Dimer Potassium BUN Creatinine Glucose POC Glucose 147 H Phosphorus Magnesium Ferritin Lactate Dehydrogenase C-Reactive Protein NT-Pro-B Natriuret Pep Total Protein Albumin Urine WBC (Auto) Salicylates Acetaminophen Coronavirus (PCR) Positive A 04/16/20 04/16/20 04/16/20 05:17 07:42 11:14 WBC [place] % (Auto) Lymph # (Auto) Seg Neuts % (Manual) Lymphocytes % (Manual) Monocytes % (Manual) Lymphocytes # (Manual) D-Dimer Potassium 3.4 L BUN 22 H Creatinine Glucose 128 H POC Glucose 119 H 119 H Phosphorus Magnesium Ferritin Lactate Dehydrogenase C-Reactive Protein NT-Pro-B Natriuret Pep Total Protein Albumin Urine WBC (Auto) Salicylates Acetaminophen Coronavirus (PCR) 04/16/20 04/16/20 04/16/20 16:20 16:20 16:20 WBC [place] % (Auto) Lymph # (Auto) Seg Neuts % (Manual) Lymphocytes % (Manual) Monocytes % (Manual) Lymphocytes # (Manual) D-Dimer 543.86 H Potassium BUN Creatinine Glucose POC Glucose Phosphorus Magnesium Ferritin 416.4 H Lactate Dehydrogenase 323 H C-Reactive Protein 2.10 H NT-Pro-B Natriuret Pep Total Protein Albumin Urine WBC (Auto) Salicylates Acetaminophen Coronavirus (PCR) 04/16/20 04/16/20 04/17/20 16:23 21:34 05:28 WBC [place] % (Auto) Lymph # (Auto) Seg Neuts % (Manual) Lymphocytes % (Manual) Monocytes % (Manual) Lymphocytes # (Manual) D-Dimer Potassium BUN Creatinine Glucose POC Glucose 168 H 260 H Phosphorus Magnesium 1.40 L Ferritin Lactate Dehydrogenase C-Reactive Protein NT-Pro-B Natriuret Pep 1144 H Total Protein Albumin Urine WBC (Auto) Salicylates Acetaminophen Coronavirus (PCR) 04/17/20 05:28 WBC [place] % (Auto) Lymph # (Auto) Seg Neuts % (Manual) Lymphocytes % (Manual) Monocytes % (Manual) Lymphocytes # (Manual) D-Dimer Potassium 3.3 L BUN 23 H Creatinine Glucose 160 H POC Glucose Phosphorus Magnesium Ferritin Lactate Dehydrogenase C-Reactive Protein NT-Pro-B Natriuret Pep Total Protein 5.8 L Albumin 3.3 L Urine WBC (Auto) Salicylates Acetaminophen Coronavirus (PCR)
[2020-04-17] MEDS ORDERED: POTASSIUM CHLORIDE ER 20 MEQ TAB PO NR (09:00)
[2020-04-17] MEDS ORDERED: FUROSEMIDE 40 MG/4 ML INJ IV NR (09:00)
[2020-04-17] MEDS: INSULIN LISPRO 100 UNIT/ML SUB-Q SCH ×4 (09:56→22:37)
[2020-04-17] MEDS: glipiZIDE 10 MG TAB PO SCH ×2 (09:57→17:08)
[2020-04-17] MEDS: LISINOPRIL 40 MG TAB PO SCH (09:57)
[2020-04-17] MEDS: ASPIRIN 81 MG TAB CHEW PO SCH (09:57)
[2020-04-17] MEDS: atenoloL 50 MG TAB PO SCH (09:58)
[2020-04-17] MEDS: POTASSIUM CHLORIDE ER 10 MEQ TAB PO SCH (09:58)
[2020-04-17] MEDS: DEXAMETHASONE 4 MG TAB PO SCH (09:58)
[2020-04-17] MEDS: cefTRIAXone/NS 2 GM/100 ML 2 GM/100 ML BAG IV SCH (09:59)
--- NOTE | 2020-04-17 11:06 | Progress Note ---
Assessment and Plan Agree with present cardiac management. Plan to obtain tte once COVID-19 infection is adequately managed. Will follow. The patient has been seen in conjunction with Dr. Jayjay Monson who agrees with the assessment and plan of care. - Patient Problems (1) COVID-19 virus infection Current Visit: Yes Status: Acute (2) Pneumonia Current Visit: Yes Status: Acute (3) CAD (coronary artery disease) Current Visit: Yes Status: Chronic (4) HTN (hypertension) Current Visit: Yes Status: Chronic (5) Diabetes Current Visit: Yes Status: Chronic (6) History of CVA (cerebrovascular accident) Current Visit: Yes Status: Chronic Subjective Date of service: 04/17/20 Principal diagnosis: COVID-19 Interval history: NAD. not on remote telemetry overnight. Objective Last Vital Signs Temp 98.0 F 04/17/20 04:25 Pulse 64 04/17/20 04:25 Resp 24 04/17/20 04:25 BP 159/77 04/17/20 04:25 Pulse Ox 90 04/17/20 04:25 - Physical Examination Narrative exam: agree with physical examination per primary - Labs and Meds Cardiac Enzymes 04/16/20 04/17/20 Range/Units 16:20 05:28 AST 16 (5-40) units/L Lactate Dehydrogenase 323 H (91-180) units/L Comprehensive Metabolic Panel 04/17/20 Range/Units 05:28 Sodium 140 (137-145) mmol/L Potassium 3.3 L (3.6-5.0) mmol/L Chloride 102.6 (98-107) mmol/L Carbon Dioxide 25 (22-30) mmol/L BUN 23 H (7-17) mg/dL Creatinine 1.0 (0.6-1.2) mg/dL Glucose 160 H (65-100) mg/dL Calcium 9.7 (8.4-10.2) mg/dL Direct Bilirubin < 0.2 (0-0.2) mg/dL Indirect Bilirubin 0.1 mg/dL AST 16 (5-40) units/L ALT 12 (7-56) units/L Alkaline Phosphatase 63 (35-129) units/L Total Protein 5.8 L (6.3-8.2) g/dL Albumin 3.3 L (3.9-5) g/dL - Imaging and Cardiology EKG: report reviewed, image reviewed - EKG Sinus rhythms and dysrhythmias: sinus rhythm
--- NOTE | 2020-04-17 12:38 | Progress Note ---
Assessment and Plan Assessment and plan: 64-year-old female with known history of coronary artery disease, hypertension, presenting to the emergency room today complaining of cough and loss of smell and taste over the past 1 week. Patient was diagnosed with COVID-19 positive at a [place] facility yesterday. Symptoms have become worse today and she has also been a little confused. She has become increasingly forgetful. She was informed in the [place] facility that she had bilateral pneumonia. Upon arrival here in the emergency room patient was hypoxic with O2 saturation in the 80s. Chest x-ray reveals bilateral infiltrate. Labs reviewed mild hypokalemia. Patient admitted with pneumonia possibly secondary to COVID-19. She was started on empiric IV antibiotics and IV steroid. COVID-19 pneumonia Sepsis secondary to Covid pneumonia COVID-19 Hypokalemia now resolved Acute respiratory failure with hypoxia Hypophosphatemia Hypomagnesemia Acute cystitis Acute kidney injury with vasomotor nephropathy Obesity Plan Continue remdesivir and Decadron as prescribed. ID input noted. Continue to wean oxygen nursing staff asked to be has wean the patient down to 2 L this morning Continue vitamins as risk prescribed Covid test came back positive Monitor electrolytes DVT and GI prophylaxis Continue to monitor inflammatory markers and monitor renal function as remdesivir may need to be discontinued if worsening renal function. Plan discussed in detail with the patient 04/16: Blood pressure medicines adjusted. Will obtain echocardiogram monitoring. We will also obtain cardiology consultation considering the patient's clinical condition. Continue steroid remdesivir wean as tolerated. 04/17: Continue supportive, wean oxygen as tolerated, cardiology input noted, renal function improved. Complete steroids and Remdesivir and discharge when clinically improved. Replace K Hospitalist Physical - Constitutional Vitals: Temp Pulse Resp BP Pulse Ox 98.0 F 64 18 159/77 90 04/17/20 04:25 04/17/20 04:25 04/17/20 08:35 04/17/20 04:25 04/17/20 04:25 General appearance: Present: no acute distress, well-nourished Results - Labs CBC & Chem 7: 04/16/20 05:17 04/17/20 05:28 Labs: Laboratory Last Values WBC 4.9 K/mm3 (4.5-11.0) 04/16/20 05:17 RBC 3.65 M/mm3 (3.65-5.03) 04/16/20 05:17 Hgb 10.8 gm/dl (10.1-14.3) 04/16/20 05:17 Hct 33.1 % (30.3-42.9) 04/16/20 05:17 MCV 91 fl (79-97) 04/16/20 05:17 MCH 30 pg (28-32) 04/16/20 05:17 MCHC 33 % (30-34) 04/16/20 05:17 RDW 13.8 % (13.2-15.2) 04/16/20 05:17 Plt Count 232 K/mm3 (140-440) 04/16/20 05:17 Lymph % (Auto) 28.0 % (13.4-35.0) 04/14/20 15:35 [place] % (Auto) Candy Maker 04/16/20 05:17 Eos % (Auto) 0.1 % (0.0-4.3) 04/14/20 15:35 Baso % (Auto) 0.3 % (0.0-1.8) 04/14/20 15:35 Lymph # (Auto) 1.0 K/mm3 (1.2-5.4) L 04/14/20 15:35 [place] # (Auto) 0.5 K/mm3 (0.0-0.8) 04/14/20 15:35 Eos # (Auto) 0.0 K/mm3 (0.0-0.4) 04/14/20 15:35 Baso # (Auto) 0.0 K/mm3 (0.0-0.1) 04/14/20 15:35 Add Manual Diff Complete 04/16/20 05:17 Total Counted 100 04/16/20 05:17 Seg Neutrophils % 57.1 % (40.0-70.0) 04/14/20 15:35 Seg Neuts % (Manual) 76.0 % (40.0-70.0) H 04/16/20 05:17 Lymphocytes % (Manual) 13.0 % (13.4-35.0) L 04/16/20 05:17 Monocytes % (Manual) 11.0 % (0.0-7.3) H 04/16/20 05:17 Nucleated RBC % Not Reportable 04/16/20 05:17 Seg Neutrophils # 2.0 K/mm3 (1.8-7.7) 04/14/20 15:35 Seg Neutrophils # Man 3.7 K/mm3 (1.8-7.7) 04/16/20 05:17 Band Neutrophils # 0.0 K/mm3 04/16/20 05:17 Lymphocytes # (Manual) 0.6 K/mm3 (1.2-5.4) L 04/16/20 05:17 Abs React Lymphs (Man) 0.0 K/mm3 04/16/20 05:17 Monocytes # (Manual) 0.5 K/mm3 (0.0-0.8) 04/16/20 05:17 Eosinophils # (Manual) 0.0 K/mm3 (0.0-0.4) 04/16/20 05:17 Basophils # (Manual) 0.0 K/mm3 (0.0-0.1) 04/16/20 05:17 Metamyelocytes # 0.0 K/mm3 04/16/20 05:17 Myelocytes # 0.0 K/mm3 04/16/20 05:17 Promyelocytes # 0.0 K/mm3 04/16/20 05:17 Blast Cells # 0.0 K/mm3 04/16/20 05:17 WBC Morphology Not Reportable 04/16/20 05:17 Hypersegmented Neuts Not Reportable 04/16/20 05:17 Hyposegmented Neuts Not Reportable 04/16/20 05:17 Hypogranular Neuts Not Reportable 04/16/20 05:17 Smudge Cells Not Reportable 04/16/20 05:17 Toxic Granulation Not Reportable 04/16/20 05:17 Toxic Vacuolation Not Reportable 04/16/20 05:17 Dohle Bodies Not Reportable 04/16/20 05:17 Pelger-Huet Anomaly Not Reportable 04/16/20 05:17 Guido Rods Not Reportable 04/16/20 05:17 Platelet Estimate Consistent w auto 04/16/20 05:17 Clumped Platelets Not Reportable 04/16/20 05:17 Plt Clumps, EDTA Not Reportable 04/16/20 05:17 Large Platelets Not Reportable 04/16/20 05:17 Giant Platelets Not Reportable 04/16/20 05:17 Platelet Satelliting Not Reportable 04/16/20 05:17 Plt Morphology Comment Not Reportable 04/16/20 05:17 RBC Morphology Not Reportable 04/16/20 05:17 Dimorphic RBCs Not Reportable 04/16/20 05:17 Polychromasia Not Reportable 04/16/20 05:17 Hypochromasia Not Reportable 04/16/20 05:17 Poikilocytosis Not Reportable 04/16/20 05:17 Anisocytosis Not Reportable 04/16/20 05:17 Microcytosis Not Reportable 04/16/20 05:17 Macrocytosis Not Reportable 04/16/20 05:17 Spherocytes Not Reportable 04/16/20 05:17 Pappenheimer Bodies Not Reportable 04/16/20 05:17 Sickle Cells Not Reportable 04/16/20 05:17 Target Cells Not Reportable 04/16/20 05:17 Tear Drop Cells Not Reportable 04/16/20 05:17 Ovalocytes Not Reportable 04/16/20 05:17 Helmet Cells Not Reportable 04/16/20 05:17 [place] Bodies Not Reportable 04/16/20 05:17 [place] Rings Not Reportable 04/16/20 05:17 [place] Cells 1+ 04/16/20 05:17 Bite Cells Not Reportable 04/16/20 05:17 Crenated Cell Not Reportable 04/16/20 05:17 Elliptocytes Not Reportable 04/16/20 05:17 Acanthocytes (Spur) Not Reportable 04/16/20 05:17 Rouleaux Not Reportable 04/16/20 05:17 Hemoglobin C Crystals Not Reportable 04/16/20 05:17 Schistocytes Few 04/16/20 05:17 Malaria parasites Not Reportable 04/16/20 05:17 Walter Bodies Not Reportable 04/16/20 05:17 Hem Pathologist Commnt No 04/16/20 05:17 PT 13.1 Sec. (12.2-14.9) 04/16/20 05:17 INR 1.00 (0.87-1.13) 04/16/20 05:17 D-Dimer 543.86 ng/mlDDU (0-234) H 04/16/20 16:20 Sodium 140 mmol/L (137-145) 04/17/20 05:28 Potassium 3.3 mmol/L (3.6-5.0) L 04/17/20 05:28 Chloride 102.6 mmol/L (98-107) 04/17/20 05:28 Carbon Dioxide 25 mmol/L (22-30) 04/17/20 05:28 Anion Gap 16 mmol/L 04/17/20 05:28 BUN 23 mg/dL (7-17) H 04/17/20 05:28 Creatinine 1.0 mg/dL (0.6-1.2) 04/17/20 05:28 Estimated GFR 56 ml/min 04/17/20 05:28 BUN/Creatinine Ratio 23 % 04/17/20 05:28 Glucose 160 mg/dL (65-100) H 04/17/20 05:28 POC Glucose 147 mg/dL (70-105) H 04/17/20 11:07 Lactic Acid 1.30 mmol/L (0.7-2.0) 04/14/20 15:41 Calcium 9.7 mg/dL (8.4-10.2) 04/17/20 05:28 Phosphorus 1.20 mg/dL (2.5-4.5) L 04/14/20 15:35 Magnesium 1.40 mg/dL (1.7-2.3) L 04/17/20 05:28 Ferritin 416.4 ng/mL (10.0-200.0) H 04/16/20 16:20 Total Bilirubin 0.30 mg/dL (0.1-1.2) 04/17/20 05:28 Direct Bilirubin < 0.2 mg/dL (0-0.2) 04/17/20 05:28 Indirect Bilirubin 0.1 mg/dL 04/17/20 05:28 AST 16 units/L (5-40) 04/17/20 05:28 ALT 12 units/L (7-56) 04/17/20 05:28 Alkaline Phosphatase 63 units/L (35-129) 04/17/20 05:28 Ammonia 35.0 umol/L (25-60) 04/14/20 15:41 Lactate Dehydrogenase 323 units/L (91-180) H 04/16/20 16:20 C-Reactive Protein 2.10 mg/dL (0.00-1.30) H 04/16/20 16:20 NT-Pro-B Natriuret Pep 1144 pg/mL (0-900) H 04/17/20 05:28 Total Protein 5.8 g/dL (6.3-8.2) L 04/17/20 05:28 Albumin 3.3 g/dL (3.9-5) L 04/17/20 05:28 Albumin/Globulin Ratio 1.3 % 04/17/20 05:28 Procalcitonin < 0.05 ng/mL (<0.15) 04/16/20 16:20 Urine Color Yellow (Yellow) 04/14/20 16:11 Urine Turbidity Clear (Clear) 04/14/20 16:11 Urine pH 5.0 (5.0-7.0) 04/14/20 16:11 Ur Specific [place] 1.022 (1.003-1.030) 04/14/20 16:11 Urine Protein >500 mg/dL (Negative) 04/14/20 16:11 Urine Glucose (UA) Neg mg/dL (Negative) 04/14/20 16:11 Urine Ketones Neg mg/dL (Negative) 04/14/20 16:11 Urine Blood Neg (Negative) 04/14/20 16:11 Urine Nitrite Neg (Negative) 04/14/20 16:11 Urine Bilirubin Neg (Negative) 04/14/20 16:11 Urine Urobilinogen < 2.0 mg/dL (<2.0) 04/14/20 16:11 Ur Leukocyte Esterase Sm (Negative) 04/14/20 16:11 Urine WBC (Auto) 27.0 /HPF (0.0-6.0) H 04/14/20 16:11 Urine RBC (Auto) 2.0 /HPF (0.0-6.0) 04/14/20 16:11 U Epithel Cells (Auto) 2.0 /HPF (0-13.0) 04/14/20 16:11 Urine Mucus Few /HPF 04/14/20 16:11 Salicylates 1.1 mg/dL (2.8-20.0) L 04/14/20 15:41 Acetaminophen 5.0 ug/mL (10.0-30.0) L 04/14/20 15:41 Coronavirus (PCR) Positive (Negative) A 04/15/20 Unknown Microbiology: Microbiology 04/14/20 16:11 Urine,Clean Catch Urine Culture - Final 04/14/20 15:52 Peripheral/Venous Blood Culture - Preliminary NO GROWTH AFTER 48 HOURS 04/14/20 15:41 Peripheral/Venous Blood Culture - Preliminary NO GROWTH AFTER 48 HOURS [place]/IV: Voiding Method Toilet IV Catheter Type [Left INT / Saline Lock Antecubital] IV Catheter Type [Right Hand] INT / Saline Lock Active Medications - Current Medications Current Medications: Generic Name Dose Route Start Last Admin Trade Name Freq PRN Reason Stop Dose Admin Acetaminophen 650 mg 04/15/20 00:34 04/15/20 18:08 Acetaminophen 325 Mg Tab PO 650 mg Q4H PRN Administration Pain MILD(1-3)/Fever >100.5/GRAY Aspirin 81 mg 04/16/20 10:00 04/17/20 09:57 Aspirin 81 Mg Tab Chew PO 81 mg QDAY DURGA Administration Atenolol 50 mg 04/15/20 21:00 04/17/20 09:58 Atenolol 50 Mg Tab PO 50 mg QDAY DURGA Administration Atorvastatin Calcium 80 mg 04/15/20 22:00 04/16/20 21:46 Atorvastatin 40 Mg Tab PO 80 mg QHS DURGA Administration Dexamethasone 6 mg 04/16/20 10:00 04/17/20 09:58 Dexamethasone 4 Mg Tab PO 04/24/20 12:00 6 mg DAILY DURGA Administration Dextrose 50 ml 04/16/20 09:29 Dextrose 50% In Water (25gm) 50 Ml Syringe IV Q30MIN PRN Hypoglycemia Protocol Glipizide 10 mg 04/16/20 08:00 04/17/20 09:57 Glipizide 10 Mg Tab PO 10 mg BIDDIAB DURGA Administration Heparin Sodium (Porcine) 5,000 unit 04/15/20 06:00 04/17/20 06:10 Heparin 5,000 Unit/1 Ml Vial SUB-Q 5,000 unit Q8HR DURGA Administration REMDESIVIR 100 mg/ Sodium 250 mls @ 500 mls/hr 04/16/20 21:00 04/16/20 21:47 Chloride IV 04/19/20 21:29 500 mls/hr Q24HR@2100 DURGA Administration Insulin Human Lispro 0 unit 04/16/20 11:30 04/17/20 12:10 Insulin Lispro 100 Unit/Ml SUB-Q Not Given ACHS DURGA Protocol Isosorbide Mononitrate 30 mg 04/15/20 21:00 04/17/20 09:58 Isosorbide Mononitrate Er 30 Mg Tab PO 30 mg QDAY DURGA Administration Lisinopril 40 mg 04/15/20 21:00 04/17/20 09:57 Lisinopril 40 Mg Tab PO 40 mg QDAY DURGA Administration Magnesium Hydroxide 30 ml 04/15/20 00:34 Magnesium Hydroxide (Mom) Oral Liqd Udc PO Q4H PRN Constipation Morphine Sulfate 2 mg 04/15/20 00:34 Morphine 2 Mg/1 Ml Inj IV Q4H PRN Pain, Moderate (4-6) Ondansetron HCl 4 mg 04/15/20 00:34 Ondansetron 4 Mg/2 Ml Inj IV Q8H PRN Nausea And Vomiting Potassium Chloride 10 meq 04/15/20 21:00 04/17/20 09:58 Potassium Chloride Er 10 Meq Tab PO 10 meq QDAY DURGA Administration Sodium Chloride 10 ml 04/15/20 10:00 04/17/20 09:59 Sodium Chloride 0.9% 10 Ml Flush Syringe IV 10 ml BID DURGA Administration Sodium Chloride 10 ml 04/15/20 00:34 Sodium Chloride 0.9% 10 Ml Flush Syringe IV PRN PRN LINE FLUSH Sodium Chloride 50 ml 04/15/20 14:00 04/16/20 21:47 Sodium Chloride 0.9% 50 Ml Ivpb IV 04/19/20 21:01 50 ml Q24HR@2100 DURGA Administration Nutrition/Malnutrition Assess - Dietary Evaluation Nutrition/Malnutrition Findings: Nutrition Notes Start: 04/15/20 07:16 Freq: Status: Active Protocol: Document 04/16/20 13:30 (Rec: 04/16/20 13:39 [email or web address]) Nutrition Notes Need for Assessment generated from: Education Initial or Follow up Assessment Current Diagnosis Coronary Artery Disease, Diabetes,Hypertension Other Pertinent Diagnosis COVID, Hx of CVA Current Diet Cardiac, Consistent CHO Labs/Tests K 3.4 Pertinent Medications K-Dur 10 mEq Decadron Height 5 ft 5 in Weight 83.7 kg Lafe Body Weight (kg) 56.81 BMI 30.7 Intake Prior to Admission Poor Weight Status Obese Subjective/Other Information FU for diet education. Pt reports eating well balanced, CHO controlled meals normally. Her daughter usually does the shopping and buys low-sodium foods. Pt reports getting [employer] sometimes. Pt given low-sodium, heart healthy, consistent CHO diet education. Handout given to RN to give to pt. Pt reports she did not eat for 2-3 days [employer] and now eating <25% of meals due to food prefrences. Burn Absent Trauma Absent GI Symptoms None Food Allergy Yes Current % PO Negligible Minimum of two criteria No physical signs of malnutrition #2 Nutrition Diagnosis Food and nutrition-related knowledge deficit Etiology no prior diet education As Evidenced by Signs and Symptoms pt had questions about low sodium breakfast options #1 Nutrition Diagnosis Inadequate oral intake Etiology food prefrences As Evidenced by Signs and Symptoms pt eating <25% of meals Is patient on ventilator? No Is Patient Ambulatory and/or Out of Bed Yes REE-([facility]-ambulatory/OOB) [ 1797.744 NUTR.[id number]] Kcal/Kg value to use for calculation 17 Approximate Energy Requirements Using 1423 kcal/Kg Calculation Used for Recommendations Kcal/kg Additional Notes Protein: 70-84g (1-1.2g/kg AdjBW: 70kg) Fluid: 1ml/kcal Nutrition Intervention Change Diet Order: Continue current with food prefrences Add Supplement/Snack (indicate name/kcal Glucerna BID /protein ) Provides kCal: 440 Provides Protein (gm) 20 Teaching Recipient Patient Learning Readiness Good Teaching Methods Discussion,Handout Response to Teaching Verbalize understanding Education Handouts Provided HTN Nutrition Therapy Barriers to Learning No Barriers RD phone number provided Yes Patient aware of follow up options Yes Goal #1 Meet at least 75% of protein and energy needs via PO and ONS intakes Anticipated Discharge Needs: Cardiac, Consistent CHO Follow-Up By: 04/18/20 Additional Comments FU for intakes and ONS tolerance
[2020-04-17] MEDS: REMDESIVIR 100 MG in SODIUM CHLORIDE 0.9% 250ML 250 ML IV SCH (22:36)
[2020-04-17] MEDS: SODIUM CHLORIDE 0.9% 50 ML IVPB IV SCH (22:36)
[2020-04-18] MEDS: HEPARIN 5,000 UNIT/1 ML VIAL SUB-Q SCH ×3 (05:33→21:36)
[2020-04-18] MEDS ORDERED: hydrALAZINE 20 MG/1 ML INJ IV PRN (06:16)
[2020-04-18 06:44] LABS: Albumin 3.2 g/dL (3.9-5); Calcium 9.6 mg/dL (8.4-10.2)
[2020-04-18] MEDS: INSULIN LISPRO 100 UNIT/ML SUB-Q SCH ×4 (08:18→23:23)
[2020-04-18] MEDS: ASPIRIN 81 MG TAB CHEW PO SCH (09:33)
[2020-04-18] MEDS: LISINOPRIL 40 MG TAB PO SCH (09:34)
[2020-04-18] MEDS: POTASSIUM CHLORIDE ER 10 MEQ TAB PO SCH (09:34)
[2020-04-18] MEDS: glipiZIDE 10 MG TAB PO SCH ×2 (09:34→17:08)
[2020-04-18] MEDS: atenoloL 50 MG TAB PO SCH (09:34)
[2020-04-18] MEDS: DEXAMETHASONE 4 MG TAB PO SCH (09:34)
--- NOTE | 2020-04-18 09:54 | Progress Note ---
Assessment and Plan 64 y/o female, hypertensive, admitted with acute respiratory failure secondary to COVID 19 04/18/20: Will give lasix again today. needs better BP control. Not sure what to make of ambulatory test on yesterday and being placed back on oxygen last night as I cannot find in documentation of issues or significant desats. Please wean FiO2 for sats >88% and patient comfort. Replaced K as I am giving more lasix today. Please check labs tomorrow. 04/17/20: Stopped HCTZ and gave lasix 40. Prone if possible, despite low O2 requirement. Steroids and Remdesivir. Wean FiO2 for sats >88%. 1. Steroids for 10 days, Remdesivir for 5 2. Needs better BP control 3. Suggest checking 2D echo to evaluate for pulmonary HTN 4. Daily net negative state if possible 5. Prone as tolerated during the day and sleep prone at night. 6. Guarded prognosis, would ask [facility] if they have any outpatient records on her that might help with management. Subjective Date of service: 04/18/20 Principal diagnosis: COVID-19 Interval history: Per charting by daysctft nurse yesterday, patient was weaned to room air with good sats and ambulated on room air without desaturation. However this am back on 3 liters NC. BP remains extremely high. Given lasix yesterday but I/O not accurate as no output was recorded. Objective Vital Signs - 12hr 04/17/20 04/18/20 04/18/20 22:00 04:25 05:29 Temperature 98.0 F 98 F Pulse Rate 86 Respiratory 17 16 20 Rate Respiratory 17 Rate [ Generalized] Blood Pressure 161/90 Blood Pressure 181/90 [Left] O2 Sat by Pulse 92 Oximetry 04/18/20 07:48 Temperature Pulse Rate 86 Respiratory Rate Respiratory Rate [ Generalized] Blood Pressure 180/90 Blood Pressure [Left] O2 Sat by Pulse Oximetry Constitutional: no acute distress, alert Eyes: non-icteric ENT: oropharynx moist Neck: supple Effort: normal Ascultation: Bilateral: rales Cardiovascular: regular rate and rhythm (no mrg) Gastrointestinal: normoactive bowel sounds, soft, non-tender Integumentary: normal Extremities: no cyanosis, no edema, pink and warm Neurologic: normal mental status, non-focal exam, pupils equal and round, CN II- XII normal Psychiatric: mood appropriate, affect normal CBC and BMP: 04/16/20 05:17 04/18/20 05:26 ABG, PT/INR, D-dimer: PT/INR, D-dimer PT 13.1 Sec. (12.2-14.9) 04/16/20 05:17 INR 1.00 (0.87-1.13) 04/16/20 05:17 D-Dimer 543.86 ng/mlDDU (0-234) H 04/16/20 16:20 Abnormal lab findings: Abnormal Labs 04/14/20 04/14/20 04/14/20 15:35 15:35 15:35 WBC 3.6 L [place] % (Auto) 14.5 H Lymph # (Auto) 1.0 L Seg Neuts % (Manual) Lymphocytes % (Manual) Monocytes % (Manual) Lymphocytes # (Manual) D-Dimer Potassium 3.3 L BUN 23 H Creatinine 1.4 H Glucose POC Glucose Phosphorus 1.20 L Magnesium 1.50 L Ferritin Lactate Dehydrogenase C-Reactive Protein NT-Pro-B Natriuret Pep Total Protein 6.1 L Albumin 3.7 L Urine WBC (Auto) Salicylates Acetaminophen Coronavirus (PCR) 04/14/20 04/14/20 04/14/20 15:41 15:41 16:11 WBC [place] % (Auto) Lymph # (Auto) Seg Neuts % (Manual) Lymphocytes % (Manual) Monocytes % (Manual) Lymphocytes # (Manual) D-Dimer Potassium BUN Creatinine Glucose POC Glucose Phosphorus Magnesium Ferritin Lactate Dehydrogenase C-Reactive Protein NT-Pro-B Natriuret Pep Total Protein Albumin Urine WBC (Auto) 27.0 H Salicylates 1.1 L Acetaminophen 5.0 L Coronavirus (PCR) 04/14/20 04/14/20 04/14/20 23:05 23:05 23:05 WBC [place] % (Auto) Lymph # (Auto) Seg Neuts % (Manual) Lymphocytes % (Manual) Monocytes % (Manual) Lymphocytes # (Manual) D-Dimer 664.34 H Potassium BUN Creatinine Glucose POC Glucose Phosphorus Magnesium Ferritin 388.0 H Lactate Dehydrogenase 380 H C-Reactive Protein 5.20 H NT-Pro-B Natriuret Pep Total Protein Albumin Urine WBC (Auto) Salicylates Acetaminophen Coronavirus (PCR) 04/15/20 04/15/20 04/15/20 08:32 13:05 17:05 WBC [place] % (Auto) Lymph # (Auto) Seg Neuts % (Manual) Lymphocytes % (Manual) Monocytes % (Manual) Lymphocytes # (Manual) D-Dimer Potassium BUN Creatinine Glucose POC Glucose 281 H 315 H 221 H Phosphorus Magnesium Ferritin Lactate Dehydrogenase C-Reactive Protein NT-Pro-B Natriuret Pep Total Protein Albumin Urine WBC (Auto) Salicylates Acetaminophen Coronavirus (PCR) 04/15/20 04/15/20 04/16/20 21:23 Unknown 05:17 WBC [place] % (Auto) Lymph # (Auto) Seg Neuts % (Manual) 76.0 H Lymphocytes % (Manual) 13.0 L Monocytes % (Manual) 11.0 H Lymphocytes # (Manual) 0.6 L D-Dimer Potassium BUN Creatinine Glucose POC Glucose 147 H Phosphorus Magnesium Ferritin Lactate Dehydrogenase C-Reactive Protein NT-Pro-B Natriuret Pep Total Protein Albumin Urine WBC (Auto) Salicylates Acetaminophen Coronavirus (PCR) Positive A 04/16/20 04/16/20 04/16/20 05:17 07:42 11:14 WBC [place] % (Auto) Lymph # (Auto) Seg Neuts % (Manual) Lymphocytes % (Manual) Monocytes % (Manual) Lymphocytes # (Manual) D-Dimer Potassium 3.4 L BUN 22 H Creatinine Glucose 128 H POC Glucose 119 H 119 H Phosphorus Magnesium Ferritin Lactate Dehydrogenase C-Reactive Protein NT-Pro-B Natriuret Pep Total Protein Albumin Urine WBC (Auto) Salicylates Acetaminophen Coronavirus (PCR) 04/16/20 04/16/20 04/16/20 16:20 16:20 16:20 WBC [place] % (Auto) Lymph # (Auto) Seg Neuts % (Manual) Lymphocytes % (Manual) Monocytes % (Manual) Lymphocytes # (Manual) D-Dimer 543.86 H Potassium BUN Creatinine Glucose POC Glucose Phosphorus Magnesium Ferritin 416.4 H Lactate Dehydrogenase 323 H C-Reactive Protein 2.10 H NT-Pro-B Natriuret Pep Total Protein Albumin Urine WBC (Auto) Salicylates Acetaminophen Coronavirus (PCR) 04/16/20 04/16/20 04/17/20 16:23 21:34 05:28 WBC [place] % (Auto) Lymph # (Auto) Seg Neuts % (Manual) Lymphocytes % (Manual) Monocytes % (Manual) Lymphocytes # (Manual) D-Dimer Potassium BUN Creatinine Glucose POC Glucose 168 H 260 H Phosphorus Magnesium 1.40 L Ferritin Lactate Dehydrogenase C-Reactive Protein NT-Pro-B Natriuret Pep 1144 H Total Protein Albumin Urine WBC (Auto) Salicylates Acetaminophen Coronavirus (PCR) 04/17/20 04/17/20 04/17/20 05:28 07:39 11:07 WBC [place] % (Auto) Lymph # (Auto) Seg Neuts % (Manual) Lymphocytes % (Manual) Monocytes % (Manual) Lymphocytes # (Manual) D-Dimer Potassium 3.3 L BUN 23 H Creatinine Glucose 160 H POC Glucose 147 H 147 H Phosphorus Magnesium Ferritin Lactate Dehydrogenase C-Reactive Protein NT-Pro-B Natriuret Pep Total Protein 5.8 L Albumin 3.3 L Urine WBC (Auto) Salicylates Acetaminophen Coronavirus (PCR) 04/17/20 04/17/20 04/18/20 16:40 21:23 05:26 WBC [place] % (Auto) Lymph # (Auto) Seg Neuts % (Manual) Lymphocytes % (Manual) Monocytes % (Manual) Lymphocytes # (Manual) D-Dimer Potassium 3.1 L BUN 22 H Creatinine Glucose 184 H POC Glucose 374 H 248 H Phosphorus Magnesium Ferritin Lactate Dehydrogenase C-Reactive Protein NT-Pro-B Natriuret Pep Total Protein 6.2 L Albumin 3.2 L Urine WBC (Auto) Salicylates Acetaminophen Coronavirus (PCR)
--- NOTE | 2020-04-18 09:56 | Progress Note ---
Assessment and Plan Cultures: Blood culture no growth to date Urine culture no growth to date A/P: 64-year-old female past medical history CAD, HTN admitted with COVID-19 pneumonia #COVID-19 pneumonia: Patient presented with a week of symptoms, chest x-ray with diffuse bilateral infiltrates, admission O2 88% sats on room air. Inflammatory markers elevated. VQ scan low probability for PE. Procalcitonin is low. #Acute hypoxemic respiratory failure: Likely secondary to COVID-19 infection. Remains on 2 L nasal cannula. #Leukopenia: Likely secondary to COVID-19 #Obesity #Mild confusion: Likely secondary to COVID-19. Resolved. #FRANSICO resolved. #UTI: Urine culture no growth. Status post ceftriaxone for 3 days. Recs: -Continue dexamethasone 6 mg IV/PO daily for 10 days -Continue remdesivir total 5 days D 3 of 5 -Obtain q48-72h inflammatory markers - ferritin, Ddimer, CRP, LDH, ordered today -Completed ceftriaxone for 3 days for UTI -Anticoagulation per hospital protocol -Proning as able -Obtain lower extremity ultrasound rule out DVT. Pending, reordered Sarah Webb MD [facility] ([facility]) Office [phone] Subjective Date of service: 04/18/20 Principal diagnosis: COVID-19 Interval history: Patient remains on 2 L, no desaturations, no acute events per nursing staff. Objective - Exam Narrative Exam: Physical exam deferred to minimize COVID-19 transmission during pandemic. ER and internal medicine physical examination notes reviewed. - Constitutional Vitals: Vital Signs Temp Pulse Resp BP Pulse Ox 98 F 86 20 180/90 92 04/18/20 05:29 04/18/20 07:48 04/18/20 05:29 04/18/20 07:48 04/18/20 05:29 Temperature -Last 24 Hours Temperature 98 F Temperature 98.0 F Temperature 98.7 F Temperature 98.9 F Temperature 99.2 F Temperature 98.8 F - Labs CBC & Chem 7: 04/16/20 05:17 04/18/20 05:26 Labs: Abnormal lab results 04/17/20 04/17/20 04/17/20 Range/Units 07:39 11:07 16:40 Potassium (3.6-5.0) mmol/L BUN (7-17) mg/dL Glucose (65-100) mg/dL POC Glucose 147 H 147 H 374 H (70-105) mg/dL Total Protein (6.3-8.2) g/dL Albumin (3.9-5) g/dL 04/17/20 04/18/20 Range/Units 21:23 05:26 Potassium 3.1 L (3.6-5.0) mmol/L BUN 22 H (7-17) mg/dL Glucose 184 H (65-100) mg/dL POC Glucose 248 H (70-105) mg/dL Total Protein 6.2 L (6.3-8.2) g/dL Albumin 3.2 L (3.9-5) g/dL
[2020-04-18] MEDS ORDERED: POTASSIUM CHLORIDE ER 20 MEQ TAB PO NR (10:30)
[2020-04-18] MEDS ORDERED: FUROSEMIDE 40 MG/4 ML INJ IV NR (10:30)
[2020-04-18 10:50] LABS: C-Reactive Protein 1.1 mg/dL (0.00-1.30)
--- NOTE | 2020-04-18 11:39 | Progress Note ---
Assessment and Plan Agree with present cardiac management. Plan to obtain tte once COVID-19 infection is adequately managed. Will follow. The patient has been seen in conjunction with Dr. Jayjay Monson who agrees with the assessment and plan of care. - Patient Problems (1) COVID-19 virus infection Current Visit: Yes Status: Acute (2) Pneumonia Current Visit: Yes Status: Acute (3) CAD (coronary artery disease) Current Visit: Yes Status: Chronic (4) HTN (hypertension) Current Visit: Yes Status: Chronic (5) Diabetes Current Visit: Yes Status: Chronic (6) History of CVA (cerebrovascular accident) Current Visit: Yes Status: Chronic Subjective Date of service: 04/18/20 Principal diagnosis: COVID-19 Interval history: NAD. not on remote telemetry overnight. Objective Last Vital Signs Temp 98 F 04/18/20 05:29 Pulse 86 04/18/20 07:48 Resp 20 04/18/20 05:29 BP 180/90 04/18/20 07:48 Pulse Ox 92 04/18/20 05:29 - Physical Examination Narrative exam: agree with physical examination per primary - Labs and Meds Cardiac Enzymes 04/18/20 04/18/20 Range/Units 05:26 10:07 AST 13 (5-40) units/L Lactate Dehydrogenase 307 H (91-180) units/L Comprehensive Metabolic Panel 04/18/20 Range/Units 05:26 Sodium 142 (137-145) mmol/L Potassium 3.1 L (3.6-5.0) mmol/L Chloride 104.8 (98-107) mmol/L Carbon Dioxide 29 (22-30) mmol/L BUN 22 H (7-17) mg/dL Creatinine 1.0 (0.6-1.2) mg/dL Glucose 184 H (65-100) mg/dL Calcium 9.6 (8.4-10.2) mg/dL AST 13 (5-40) units/L ALT 10 (7-56) units/L Alkaline Phosphatase 60 (35-129) units/L Total Protein 6.2 L (6.3-8.2) g/dL Albumin 3.2 L (3.9-5) g/dL - Imaging and Cardiology EKG: report reviewed, image reviewed - EKG Sinus rhythms and dysrhythmias: sinus rhythm
[2020-04-18] MEDS: POTASSIUM CHLORIDE 10 MEQ 10 MEQ/100 ML BAG IV SCH ×4 (11:43→15:00)
[2020-04-18] MEDS ORDERED: SODIUM CHLORIDE 0.9% 250ML 250 ML IV ONE (13:00)
--- NOTE | 2020-04-18 15:23 | Progress Note ---
Assessment and Plan Assessment and plan: Assessment and plan: 64-year-old -[place] female who presents with Covid pneumonia Sepsis secondary to Covid pneumonia Remdesivir and Decadron Pulmonology and infectious disease consulted Continue to attempt to wean patient off 2 L of oxygen Acute hypoxic respiratory failure Wean patient off of oxygen Patient does not meet criteria for home oxygen, satting at 92% with walk test Elevated D-dimer VQ scan low probability for PE Coronary artery disease history Atenolol and lisinopril Elevated BNP, echocardiogram pending Hypokalemia Replete with potassium Diabetes mellitus type 2, [id number] Insulin sliding scale Hypertension Lisinopril, Imdur Hydralazine Hyperlipidemia Atorvastatin Urinary tract infection S/p ceftriaxone for 3 days Urine culture without any growth Acute kidney injury Resolved DVT prophylaxis: Heparin CODE STATUS: Full History Interval history: Patient continues on 2 L of oxygen. Patient states that she feels very weak. Had a walk test yesterday, stated that she felt very winded. Hospitalist Physical - Physical exam Narrative exam: General appearance: Present: no acute distress, well-nourished -EENT Eyes: Present: PERRL, EOM intact ENT: hearing intact, clear oral mucosa - Respiratory Respiratory effort: normal, 2 L nasal cannula oxygen Respiratory: bilateral: CTA, negative: rales, rhonchi, wheezing - Cardiovascular Rhythm: regular Heart Sounds: Present: S1 & S2. Absent: rub, click - Extremities Extremities: no ischemia, No edema, normal temperature, normal color, Full ROM - Abdominal General gastrointestinal: soft, non-tender, non-distended, normal bowel sounds - Neurologic Neurologic: CNII-XII intact, no focal deficits, moves all extremities - Constitutional Vitals: Temp Pulse Resp BP Pulse Ox 98.6 F 72 24 146/95 95 04/18/20 12:22 04/18/20 12:22 04/18/20 12:22 04/18/20 12:22 04/18/20 12:22 General appearance: Present: no acute distress, well-nourished Results - Labs CBC & Chem 7: 04/16/20 05:17 04/18/20 05:26 Labs: Laboratory Last Values WBC 4.9 K/mm3 (4.5-11.0) 04/16/20 05:17 RBC 3.65 M/mm3 (3.65-5.03) 04/16/20 05:17 Hgb 10.8 gm/dl (10.1-14.3) 04/16/20 05:17 Hct 33.1 % (30.3-42.9) 04/16/20 05:17 MCV 91 fl (79-97) 04/16/20 05:17 MCH 30 pg (28-32) 04/16/20 05:17 MCHC 33 % (30-34) 04/16/20 05:17 RDW 13.8 % (13.2-15.2) 04/16/20 05:17 Plt Count 232 K/mm3 (140-440) 04/16/20 05:17 Lymph % (Auto) 28.0 % (13.4-35.0) 04/14/20 15:35 [place] % (Auto) Try Out Person 04/16/20 05:17 Eos % (Auto) 0.1 % (0.0-4.3) 04/14/20 15:35 Baso % (Auto) 0.3 % (0.0-1.8) 04/14/20 15:35 Lymph # (Auto) 1.0 K/mm3 (1.2-5.4) L 04/14/20 15:35 [place] # (Auto) 0.5 K/mm3 (0.0-0.8) 04/14/20 15:35 Eos # (Auto) 0.0 K/mm3 (0.0-0.4) 04/14/20 15:35 Baso # (Auto) 0.0 K/mm3 (0.0-0.1) 04/14/20 15:35 Add Manual Diff Complete 04/16/20 05:17 Total Counted 100 04/16/20 05:17 Seg Neutrophils % 57.1 % (40.0-70.0) 04/14/20 15:35 Seg Neuts % (Manual) 76.0 % (40.0-70.0) H 04/16/20 05:17 Lymphocytes % (Manual) 13.0 % (13.4-35.0) L 04/16/20 05:17 Monocytes % (Manual) 11.0 % (0.0-7.3) H 04/16/20 05:17 Nucleated RBC % Not Reportable 04/16/20 05:17 Seg Neutrophils # 2.0 K/mm3 (1.8-7.7) 04/14/20 15:35 Seg Neutrophils # Man 3.7 K/mm3 (1.8-7.7) 04/16/20 05:17 Band Neutrophils # 0.0 K/mm3 04/16/20 05:17 Lymphocytes # (Manual) 0.6 K/mm3 (1.2-5.4) L 04/16/20 05:17 Abs React Lymphs (Man) 0.0 K/mm3 04/16/20 05:17 Monocytes # (Manual) 0.5 K/mm3 (0.0-0.8) 04/16/20 05:17 Eosinophils # (Manual) 0.0 K/mm3 (0.0-0.4) 04/16/20 05:17 Basophils # (Manual) 0.0 K/mm3 (0.0-0.1) 04/16/20 05:17 Metamyelocytes # 0.0 K/mm3 04/16/20 05:17 Myelocytes # 0.0 K/mm3 04/16/20 05:17 Promyelocytes # 0.0 K/mm3 04/16/20 05:17 Blast Cells # 0.0 K/mm3 04/16/20 05:17 WBC Morphology Not Reportable 04/16/20 05:17 Hypersegmented Neuts Not Reportable 04/16/20 05:17 Hyposegmented Neuts Not Reportable 04/16/20 05:17 Hypogranular Neuts Not Reportable 04/16/20 05:17 Smudge Cells Not Reportable 04/16/20 05:17 Toxic Granulation Not Reportable 04/16/20 05:17 Toxic Vacuolation Not Reportable 04/16/20 05:17 Dohle Bodies Not Reportable 04/16/20 05:17 Pelger-Huet Anomaly Not Reportable 04/16/20 05:17 Guido Rods Not Reportable 04/16/20 05:17 Platelet Estimate Consistent w auto 04/16/20 05:17 Clumped Platelets Not Reportable 04/16/20 05:17 Plt Clumps, EDTA Not Reportable 04/16/20 05:17 Large Platelets Not Reportable 04/16/20 05:17 Giant Platelets Not Reportable 04/16/20 05:17 Platelet Satelliting Not Reportable 04/16/20 05:17 Plt Morphology Comment Not Reportable 04/16/20 05:17 RBC Morphology Not Reportable 04/16/20 05:17 Dimorphic RBCs Not Reportable 04/16/20 05:17 Polychromasia Not Reportable 04/16/20 05:17 Hypochromasia Not Reportable 04/16/20 05:17 Poikilocytosis Not Reportable 04/16/20 05:17 Anisocytosis Not Reportable 04/16/20 05:17 Microcytosis Not Reportable 04/16/20 05:17 Macrocytosis Not Reportable 04/16/20 05:17 Spherocytes Not Reportable 04/16/20 05:17 Pappenheimer Bodies Not Reportable 04/16/20 05:17 Sickle Cells Not Reportable 04/16/20 05:17 Target Cells Not Reportable 04/16/20 05:17 Tear Drop Cells Not Reportable 04/16/20 05:17 Ovalocytes Not Reportable 04/16/20 05:17 Helmet Cells Not Reportable 04/16/20 05:17 [place] Bodies Not Reportable 04/16/20 05:17 [place] Rings Not Reportable 04/16/20 05:17 [place] Cells 1+ 04/16/20 05:17 Bite Cells Not Reportable 04/16/20 05:17 Crenated Cell Not Reportable 04/16/20 05:17 Elliptocytes Not Reportable 04/16/20 05:17 Acanthocytes (Spur) Not Reportable 04/16/20 05:17 Rouleaux Not Reportable 04/16/20 05:17 Hemoglobin C Crystals Not Reportable 04/16/20 05:17 Schistocytes Few 04/16/20 05:17 Malaria parasites Not Reportable 04/16/20 05:17 Walter Bodies Not Reportable 04/16/20 05:17 Hem Pathologist Commnt No 04/16/20 05:17 PT 13.1 Sec. (12.2-14.9) 04/16/20 05:17 INR 1.00 (0.87-1.13) 04/16/20 05:17 D-Dimer 536.48 ng/mlDDU (0-234) H 04/18/20 10:07 Sodium 142 mmol/L (137-145) 04/18/20 05:26 Potassium 3.1 mmol/L (3.6-5.0) L 04/18/20 05:26 Chloride 104.8 mmol/L (98-107) 04/18/20 05:26 Carbon Dioxide 29 mmol/L (22-30) 04/18/20 05:26 Anion Gap 11 mmol/L 04/18/20 05:26 BUN 22 mg/dL (7-17) H 04/18/20 05:26 Creatinine 1.0 mg/dL (0.6-1.2) 04/18/20 05:26 Estimated GFR 56 ml/min 04/18/20 05:26 BUN/Creatinine Ratio 22 % 04/18/20 05:26 Glucose 184 mg/dL (65-100) H 04/18/20 05:26 POC Glucose 248 mg/dL (70-105) H 04/17/20 21:23 Lactic Acid 1.30 mmol/L (0.7-2.0) 04/14/20 15:41 Calcium 9.6 mg/dL (8.4-10.2) 04/18/20 05:26 Phosphorus 1.20 mg/dL (2.5-4.5) L 04/14/20 15:35 Magnesium 1.40 mg/dL (1.7-2.3) L 04/17/20 05:28 Ferritin 464.5 ng/mL (10.0-200.0) H 04/18/20 10:07 Total Bilirubin 0.30 mg/dL (0.1-1.2) 04/18/20 05:26 Direct Bilirubin < 0.2 mg/dL (0-0.2) 04/17/20 05:28 Indirect Bilirubin 0.1 mg/dL 04/17/20 05:28 AST 13 units/L (5-40) 04/18/20 05:26 ALT 10 units/L (7-56) 04/18/20 05:26 Alkaline Phosphatase 60 units/L (35-129) 04/18/20 05:26 Ammonia 35.0 umol/L (25-60) 04/14/20 15:41 Lactate Dehydrogenase 307 units/L (91-180) H 04/18/20 10:07 C-Reactive Protein 1.10 mg/dL (0.00-1.30) 04/18/20 10:07 NT-Pro-B Natriuret Pep 1144 pg/mL (0-900) H 04/17/20 05:28 Total Protein 6.2 g/dL (6.3-8.2) L 04/18/20 05:26 Albumin 3.2 g/dL (3.9-5) L 04/18/20 05:26 Albumin/Globulin Ratio 1.1 % 04/18/20 05:26 Procalcitonin < 0.05 ng/mL (<0.15) 04/16/20 16:20 Urine Color Yellow (Yellow) 04/14/20 16:11 Urine Turbidity Clear (Clear) 04/14/20 16:11 Urine pH 5.0 (5.0-7.0) 04/14/20 16:11 Ur Specific [place] 1.022 (1.003-1.030) 04/14/20 16:11 Urine Protein >500 mg/dL (Negative) 04/14/20 16:11 Urine Glucose (UA) Neg mg/dL (Negative) 04/14/20 16:11 Urine Ketones Neg mg/dL (Negative) 04/14/20 16:11 Urine Blood Neg (Negative) 04/14/20 16:11 Urine Nitrite Neg (Negative) 04/14/20 16:11 Urine Bilirubin Neg (Negative) 04/14/20 16:11 Urine Urobilinogen < 2.0 mg/dL (<2.0) 04/14/20 16:11 Ur Leukocyte Esterase Sm (Negative) 04/14/20 16:11 Urine WBC (Auto) 27.0 /HPF (0.0-6.0) H 04/14/20 16:11 Urine RBC (Auto) 2.0 /HPF (0.0-6.0) 04/14/20 16:11 U Epithel Cells (Auto) 2.0 /HPF (0-13.0) 04/14/20 16:11 Urine Mucus Few /HPF 04/14/20 16:11 Salicylates 1.1 mg/dL (2.8-20.0) L 04/14/20 15:41 Acetaminophen 5.0 ug/mL (10.0-30.0) L 04/14/20 15:41 Coronavirus (PCR) Positive (Negative) A 04/15/20 Unknown Microbiology: Microbiology 04/14/20 15:52 Peripheral/Venous Blood Culture - Preliminary NO GROWTH AFTER 72 HOURS 04/14/20 15:41 Peripheral/Venous Blood Culture - Preliminary NO GROWTH AFTER 72 HOURS [place]/IV: Voiding Method Toilet IV Catheter Type [Left INT / Saline Lock Antecubital] IV Catheter Type [Right Hand] INT / Saline Lock Active Medications - Current Medications Current Medications: Generic Name Dose Route Start Last Admin Trade Name Freq PRN Reason Stop Dose Admin Acetaminophen 650 mg 04/15/20 00:34 04/15/20 18:08 Acetaminophen 325 Mg Tab PO 650 mg Q4H PRN Administration Pain MILD(1-3)/Fever >100.5/GRAY Aspirin 81 mg 04/16/20 10:00 04/18/20 09:33 Aspirin 81 Mg Tab Chew PO 81 mg QDAY DURGA Administration Atenolol 50 mg 04/15/20 21:00 04/18/20 09:34 Atenolol 50 Mg Tab PO 50 mg QDAY DURGA Administration Atorvastatin Calcium 80 mg 04/15/20 22:00 04/17/20 22:36 Atorvastatin 40 Mg Tab PO 80 mg QHS DURGA Administration Dexamethasone 6 mg 04/16/20 10:00 04/18/20 09:34 Dexamethasone 4 Mg Tab PO 04/24/20 12:00 6 mg DAILY DURGA Administration Dextrose 50 ml 04/16/20 09:29 Dextrose 50% In Water (25gm) 50 Ml Syringe IV Q30MIN PRN Hypoglycemia Protocol Glipizide 10 mg 04/16/20 08:00 04/18/20 09:34 Glipizide 10 Mg Tab PO 10 mg BIDDIAB DURGA Administration Heparin Sodium (Porcine) 5,000 unit 04/15/20 06:00 04/18/20 13:02 Heparin 5,000 Unit/1 Ml Vial SUB-Q 5,000 unit Q8HR DURGA Administration Hydralazine HCl 10 mg 04/18/20 06:16 04/18/20 07:48 Hydralazine 20 Mg/1 Ml Inj IV 10 mg Q6H PRN Administration Blood Pressure REMDESIVIR 100 mg/ Sodium 250 mls @ 500 mls/hr 04/16/20 21:00 04/17/20 22:36 Chloride IV 04/19/20 21:29 500 mls/hr Q24HR@2100 DURGA Administration Insulin Human Lispro 0 unit 04/16/20 11:30 04/18/20 13:30 Insulin Lispro 100 Unit/Ml SUB-Q 6 unit ACHS DURGA Administration Protocol Isosorbide Mononitrate 30 mg 04/15/20 21:00 04/18/20 09:34 Isosorbide Mononitrate Er 30 Mg Tab PO 30 mg QDAY DURGA Administration Lisinopril 40 mg 04/15/20 21:00 04/18/20 09:34 Lisinopril 40 Mg Tab PO 40 mg QDAY DURGA Administration Magnesium Hydroxide 30 ml 04/15/20 00:34 Magnesium Hydroxide (Mom) Oral Liqd Udc PO Q4H PRN Constipation Morphine Sulfate 2 mg 04/15/20 00:34 Morphine 2 Mg/1 Ml Inj IV Q4H PRN Pain, Moderate (4-6) Ondansetron HCl 4 mg 04/15/20 00:34 Ondansetron 4 Mg/2 Ml Inj IV Q8H PRN Nausea And Vomiting Potassium Chloride 10 meq 04/15/20 21:00 04/18/20 09:34 Potassium Chloride Er 10 Meq Tab PO 10 meq QDAY DURGA Administration Sodium Chloride 10 ml 04/15/20 10:00 04/18/20 09:35 Sodium Chloride 0.9% 10 Ml Flush Syringe IV 10 ml BID DURGA Administration Sodium Chloride 10 ml 04/15/20 00:34 Sodium Chloride 0.9% 10 Ml Flush Syringe IV PRN PRN LINE FLUSH Sodium Chloride 50 ml 04/15/20 14:00 04/17/20 22:36 Sodium Chloride 0.9% 50 Ml Ivpb IV 04/19/20 21:01 50 ml Q24HR@2100 DURGA Administration Nutrition/Malnutrition Assess - Dietary Evaluation Nutrition/Malnutrition Findings: Nutrition Notes Start: 04/15/20 07:16 Freq: Status: Active Protocol: Document 04/18/20 09:52 EN (Rec: 04/18/20 10:01 EN [id number]) Co-Sign 04/18/20 09:52 MK Nutrition Notes Initial or Follow up Reassessment Current Diagnosis Coronary Artery Disease, Diabetes,Hypertension Other Pertinent Diagnosis COVID, Hx of CVA, Pneu Current Diet Cardiac, Consistent CHO Labs/Tests K+ 3.1 BUN 22 BG 184 Pertinent Medications K-Dur 10 mEq Decadron Height 5 ft 5 in Weight 84.4 kg [place] Body Weight (kg) 56.81 BMI 30.9 Weight Status Obese Subjective/Other Information F/u for intakes and ONS tolerance. Pt reports fair appetite and consuming 25-50% of meals due to food preferences. Pt denies N/V/D. Pt does not like grits or scrambled eggs. Pt would like turkey sausage and chicken noodle soup. Pt consuming 100% of ONS and prefers the vanilla flavor. Percent of energy/protein needs met: 76%/69% Burn Absent Trauma Absent GI Symptoms None Food Allergy Yes Current % PO Poor (25-49%) Minimum of two criteria No physical signs of malnutrition #2 Nutrition Diagnosis Food and nutrition-related knowledge deficit As Evidenced by Signs and Symptoms Pt has no further questions Diagnosis Progress(for reassessment Resolved documentation) #1 Nutrition Diagnosis Inadequate oral intake As Evidenced by Signs and Symptoms pt eating 25-50% of meals Diagnosis Progress(for reassessment Improved documentation) Is patient on ventilator? No Is Patient Ambulatory and/or Out of Bed Yes REE-([facility]-ambulatory/OOB) [ 1806.844 [id number]] Kcal/Kg value to use for calculation 17 Approximate Energy Requirements Using 1435 kcal/Kg Calculation Used for Recommendations Kcal/kg Additional Notes Protein: 70-84g (1-1.2g/kg AdjBW: 70kg) Fluid: 1ml/kcal Nutrition Intervention Change Diet Order: Continue current with food prefrences Add Supplement/Snack (indicate name/kcal Glucerna BID /protein ) Provides kCal: 440 Provides Protein (gm) 20 Goal #1 Meet at least 75% of protein and energy needs via PO and ONS intakes Anticipated Discharge Needs: Cardiac, Consistent CHO Follow-Up By: 04/20/20 Additional Comments F/u for PO intakes
[2020-04-18] MEDS: REMDESIVIR 100 MG in SODIUM CHLORIDE 0.9% 250ML 250 ML IV SCH (21:35)
[2020-04-18] MEDS: SODIUM CHLORIDE 0.9% 50 ML IVPB IV SCH (23:23)
[2020-04-19] MEDS: HEPARIN 5,000 UNIT/1 ML VIAL SUB-Q SCH ×3 (06:50→21:22)
[2020-04-19 08:35] LABS: Alanine Aminotransferase 20 units/L (7-56); Albumin 3.3 g/dL (3.9-5); BUN/Creatinine Ratio 23; Blood Urea Nitrogen 21 mg/dL (7-17); Calcium 9.8 mg/dL (8.4-10.2); Hemolysis Index 5
--- NOTE | 2020-04-19 08:57 | Progress Note ---
Assessment and Plan Cultures: Blood culture no growth to date Urine culture no growth to date A/P: 64-year-old female past medical history CAD, HTN admitted with COVID-19 pneumonia #COVID-19 pneumonia: Patient presented with a week of symptoms, chest x-ray with diffuse bilateral infiltrates, admission O2 88% sats on room air. Inflammatory markers elevated. VQ scan low probability for PE. Procalcitonin is low. #Acute hypoxemic respiratory failure: Likely secondary to COVID-19 infection. Remains on 2 L nasal cannula. #Leukopenia: Likely secondary to COVID-19 #Obesity #Mild confusion: Likely secondary to COVID-19. Resolved. #FRANSICO resolved. #UTI: Urine culture no growth. Status post ceftriaxone for 3 days. Recs: -Continue dexamethasone 6 mg IV/PO daily for 10 days -Continue remdesivir total 5 days D 4 of 5 -Obtain q48-72h inflammatory markers - ferritin, Ddimer, CRP, LDH, ordered today -Completed ceftriaxone for 3 days for UTI -Anticoagulation per hospital protocol -Proning as able -Obtain lower extremity ultrasound rule out DVT. Pending, reordered -Check 6 min walking test if ok then ok to d/c Sarah Webb MD [facility] ([facility]) Office [phone] Subjective Date of service: 04/19/20 Principal diagnosis: COVID-19 Interval history: Patient remains on 2 L, no desaturations, no acute events per nursing staff. Objective - Exam Narrative Exam: Physical exam deferred to minimize COVID-19 transmission during pandemic. ER and internal medicine physical examination notes reviewed. - Constitutional Vitals: Vital Signs Temp Pulse Resp BP Pulse Ox 98.7 F 67 17 163/87 94 04/19/20 05:02 04/19/20 05:02 04/19/20 05:02 04/19/20 05:02 04/19/20 05:02 Temperature -Last 24 Hours Temperature 98.7 F Temperature 98.9 F Temperature 99.4 F Temperature 98.6 F - Labs CBC & Chem 7: 04/16/20 05:17 04/19/20 07:31 Labs: Abnormal lab results 04/18/20 04/18/20 04/18/20 Range/Units 08:03 10:07 10:07 D-Dimer 536.48 H (0-234) ng/mlDDU Potassium (3.6-5.0) mmol/L BUN (7-17) mg/dL Glucose (65-100) mg/dL POC Glucose 140 H (70-105) mg/dL Ferritin 464.5 H (10.0-200.0) ng/mL Lactate Dehydrogenase (91-180) units/L Albumin (3.9-5) g/dL 04/18/20 04/18/20 04/18/20 Range/Units 10:07 12:20 17:07 D-Dimer (0-234) ng/mlDDU Potassium (3.6-5.0) mmol/L BUN (7-17) mg/dL Glucose (65-100) mg/dL POC Glucose 287 H 364 H (70-105) mg/dL Ferritin (10.0-200.0) ng/mL Lactate Dehydrogenase 307 H (91-180) units/L Albumin (3.9-5) g/dL 04/18/20 04/19/20 Range/Units 21:09 07:31 D-Dimer (0-234) ng/mlDDU Potassium 3.5 L (3.6-5.0) mmol/L BUN 21 H (7-17) mg/dL Glucose 166 H (65-100) mg/dL POC Glucose 228 H (70-105) mg/dL Ferritin (10.0-200.0) ng/mL Lactate Dehydrogenase (91-180) units/L Albumin 3.3 L (3.9-5) g/dL
[2020-04-19] MEDS: glipiZIDE 10 MG TAB PO SCH ×2 (09:38→16:40)
[2020-04-19] MEDS: POTASSIUM CHLORIDE ER 10 MEQ TAB PO SCH (09:38)
[2020-04-19] MEDS: INSULIN LISPRO 100 UNIT/ML SUB-Q SCH ×4 (09:38→23:09)
[2020-04-19] MEDS: DEXAMETHASONE 4 MG TAB PO SCH (09:38)
[2020-04-19] MEDS: atenoloL 50 MG TAB PO SCH (09:38)
[2020-04-19] MEDS: ASPIRIN 81 MG TAB CHEW PO SCH (09:38)
[2020-04-19] MEDS: LISINOPRIL 40 MG TAB PO SCH (09:40)
--- NOTE | 2020-04-19 09:55 | Progress Note ---
Assessment and Plan Agree with present cardiac management. Obtain tte. COVID-19 infection management per primary team. The patient has been seen in conjunction with Dr. Jayjay Monson who agrees with the assessment and plan of care. - Patient Problems (1) COVID-19 virus infection Current Visit: Yes Status: Acute (2) Pneumonia Current Visit: Yes Status: Acute (3) CAD (coronary artery disease) Current Visit: Yes Status: Chronic (4) HTN (hypertension) Current Visit: Yes Status: Chronic (5) Diabetes Current Visit: Yes Status: Chronic (6) History of CVA (cerebrovascular accident) Current Visit: Yes Status: Chronic Subjective Date of service: 04/19/20 Principal diagnosis: COVID-19 Interval history: NAD. not on remote telemetry overnight. Objective Last Vital Signs Temp 98.7 F 04/19/20 05:02 Pulse 67 04/19/20 05:02 Resp 17 04/19/20 05:02 BP 163/87 04/19/20 05:02 Pulse Ox 94 04/19/20 05:02 - Physical Examination Narrative exam: agree with physical examination per primary - Labs and Meds Cardiac Enzymes 04/18/20 04/19/20 Range/Units 10:07 07:31 AST 25 (5-40) units/L Lactate Dehydrogenase 307 H (91-180) units/L Comprehensive Metabolic Panel 04/19/20 Range/Units 07:31 Sodium 140 (137-145) mmol/L Potassium 3.5 L (3.6-5.0) mmol/L Chloride 105.8 (98-107) mmol/L Carbon Dioxide 29 (22-30) mmol/L BUN 21 H (7-17) mg/dL Creatinine 0.9 (0.6-1.2) mg/dL Glucose 166 H (65-100) mg/dL Calcium 9.8 (8.4-10.2) mg/dL AST 25 (5-40) units/L ALT 20 (7-56) units/L Alkaline Phosphatase 64 (35-129) units/L Total Protein 6.4 (6.3-8.2) g/dL Albumin 3.3 L (3.9-5) g/dL - Imaging and Cardiology EKG: report reviewed, image reviewed - EKG Sinus rhythms and dysrhythmias: sinus rhythm
[2020-04-19] MEDS ORDERED: POTASSIUM CHLORIDE ER 20 MEQ TAB PO NR (12:52)
[2020-04-19] MEDS ORDERED: FUROSEMIDE 40 MG/4 ML INJ IV NR (12:52)
--- NOTE | 2020-04-19 12:52 | Progress Note ---
Assessment and Plan 64 y/o female, hypertensive, admitted with acute respiratory failure secondary to COVID 19 04/19/20: Lasix again today with potassium replacement. BP still needs better control. Agree with walk test but likely does not qualify for oxygen. No objection to discharge pulmonary bhardwaj. Can finish steroids at home. Echo still not read 04/18/20: Will give lasix again today. needs better BP control. Not sure what to make of ambulatory test on yesterday and being placed back on oxygen last night as I cannot find in documentation of issues or significant desats. Please wean FiO2 for sats >88% and patient comfort. Replaced K as I am giving more lasix today. Please check labs tomorrow. 04/17/20: Stopped HCTZ and gave lasix 40. Prone if possible, despite low O2 requirement. Steroids and Remdesivir. Wean FiO2 for sats >88%. 1. Steroids for 10 days, Remdesivir for 5 2. Needs better BP control 3. Suggest checking 2D echo to evaluate for pulmonary HTN 4. Daily net negative state if possible 5. Prone as tolerated during the day and sleep prone at night. 6. Guarded prognosis, would ask [facility] if they have any outpatient records on her that might help with management. Subjective Date of service: 04/19/20 Principal diagnosis: COVID-19 Interval history: Back on room air. Stable. Objective Vital Signs - 12hr 04/19/20 05:02 Temperature 98.7 F Pulse Rate 67 Respiratory 17 Rate Blood Pressure 163/87 O2 Sat by Pulse 94 Oximetry Constitutional: no acute distress, alert Eyes: non-icteric ENT: oropharynx moist Neck: supple Effort: normal Ascultation: Bilateral: rales Cardiovascular: regular rate and rhythm (no mrg) Gastrointestinal: normoactive bowel sounds, soft, non-tender Integumentary: normal Extremities: no cyanosis, no edema, pink and warm Neurologic: normal mental status, non-focal exam, pupils equal and round, CN II- XII normal Psychiatric: mood appropriate, affect normal CBC and BMP: 04/16/20 05:17 04/19/20 07:31 ABG, PT/INR, D-dimer: PT/INR, D-dimer PT 13.1 Sec. (12.2-14.9) 04/16/20 05:17 INR 1.00 (0.87-1.13) 04/16/20 05:17 D-Dimer 536.48 ng/mlDDU (0-234) H 04/18/20 10:07 Abnormal lab findings: Abnormal Labs 04/14/20 04/14/20 04/14/20 15:35 15:35 15:35 WBC 3.6 L [place] % (Auto) 14.5 H Lymph # (Auto) 1.0 L Seg Neuts % (Manual) Lymphocytes % (Manual) Monocytes % (Manual) Lymphocytes # (Manual) D-Dimer Potassium 3.3 L BUN 23 H Creatinine 1.4 H Glucose POC Glucose Phosphorus 1.20 L Magnesium 1.50 L Ferritin Lactate Dehydrogenase C-Reactive Protein NT-Pro-B Natriuret Pep Total Protein 6.1 L Albumin 3.7 L Urine WBC (Auto) Salicylates Acetaminophen Coronavirus (PCR) 04/14/20 04/14/20 04/14/20 15:41 15:41 16:11 WBC [place] % (Auto) Lymph # (Auto) Seg Neuts % (Manual) Lymphocytes % (Manual) Monocytes % (Manual) Lymphocytes # (Manual) D-Dimer Potassium BUN Creatinine Glucose POC Glucose Phosphorus Magnesium Ferritin Lactate Dehydrogenase C-Reactive Protein NT-Pro-B Natriuret Pep Total Protein Albumin Urine WBC (Auto) 27.0 H Salicylates 1.1 L Acetaminophen 5.0 L Coronavirus (PCR) 04/14/20 04/14/20 04/14/20 23:05 23:05 23:05 WBC [place] % (Auto) Lymph # (Auto) Seg Neuts % (Manual) Lymphocytes % (Manual) Monocytes % (Manual) Lymphocytes # (Manual) D-Dimer 664.34 H Potassium BUN Creatinine Glucose POC Glucose Phosphorus Magnesium Ferritin 388.0 H Lactate Dehydrogenase 380 H C-Reactive Protein 5.20 H NT-Pro-B Natriuret Pep Total Protein Albumin Urine WBC (Auto) Salicylates Acetaminophen Coronavirus (PCR) 04/15/20 04/15/20 04/15/20 08:32 13:05 17:05 WBC [place] % (Auto) Lymph # (Auto) Seg Neuts % (Manual) Lymphocytes % (Manual) Monocytes % (Manual) Lymphocytes # (Manual) D-Dimer Potassium BUN Creatinine Glucose POC Glucose 281 H 315 H 221 H Phosphorus Magnesium Ferritin Lactate Dehydrogenase C-Reactive Protein NT-Pro-B Natriuret Pep Total Protein Albumin Urine WBC (Auto) Salicylates Acetaminophen Coronavirus (PCR) 04/15/20 04/15/20 04/16/20 21:23 Unknown 05:17 WBC [place] % (Auto) Lymph # (Auto) Seg Neuts % (Manual) 76.0 H Lymphocytes % (Manual) 13.0 L Monocytes % (Manual) 11.0 H Lymphocytes # (Manual) 0.6 L D-Dimer Potassium BUN Creatinine Glucose POC Glucose 147 H Phosphorus Magnesium Ferritin Lactate Dehydrogenase C-Reactive Protein NT-Pro-B Natriuret Pep Total Protein Albumin Urine WBC (Auto) Salicylates Acetaminophen Coronavirus (PCR) Positive A 04/16/20 04/16/20 04/16/20 05:17 07:42 11:14 WBC [place] % (Auto) Lymph # (Auto) Seg Neuts % (Manual) Lymphocytes % (Manual) Monocytes % (Manual) Lymphocytes # (Manual) D-Dimer Potassium 3.4 L BUN 22 H Creatinine Glucose 128 H POC Glucose 119 H 119 H Phosphorus Magnesium Ferritin Lactate Dehydrogenase C-Reactive Protein NT-Pro-B Natriuret Pep Total Protein Albumin Urine WBC (Auto) Salicylates Acetaminophen Coronavirus (PCR) 04/16/20 04/16/20 04/16/20 16:20 16:20 16:20 WBC [place] % (Auto) Lymph # (Auto) Seg Neuts % (Manual) Lymphocytes % (Manual) Monocytes % (Manual) Lymphocytes # (Manual) D-Dimer 543.86 H Potassium BUN Creatinine Glucose POC Glucose Phosphorus Magnesium Ferritin 416.4 H Lactate Dehydrogenase 323 H C-Reactive Protein 2.10 H NT-Pro-B Natriuret Pep Total Protein Albumin Urine WBC (Auto) Salicylates Acetaminophen Coronavirus (PCR) 04/16/20 04/16/20 04/17/20 16:23 21:34 05:28 WBC [place] % (Auto) Lymph # (Auto) Seg Neuts % (Manual) Lymphocytes % (Manual) Monocytes % (Manual) Lymphocytes # (Manual) D-Dimer Potassium BUN Creatinine Glucose POC Glucose 168 H 260 H Phosphorus Magnesium 1.40 L Ferritin Lactate Dehydrogenase C-Reactive Protein NT-Pro-B Natriuret Pep 1144 H Total Protein Albumin Urine WBC (Auto) Salicylates Acetaminophen Coronavirus (PCR) 04/17/20 04/17/20 04/17/20 05:28 07:39 11:07 WBC [place] % (Auto) Lymph # (Auto) Seg Neuts % (Manual) Lymphocytes % (Manual) Monocytes % (Manual) Lymphocytes # (Manual) D-Dimer Potassium 3.3 L BUN 23 H Creatinine Glucose 160 H POC Glucose 147 H 147 H Phosphorus Magnesium Ferritin Lactate Dehydrogenase C-Reactive Protein NT-Pro-B Natriuret Pep Total Protein 5.8 L Albumin 3.3 L Urine WBC (Auto) Salicylates Acetaminophen Coronavirus (PCR) 04/17/20 04/17/20 04/18/20 16:40 21:23 05:26 WBC [place] % (Auto) Lymph # (Auto) Seg Neuts % (Manual) Lymphocytes % (Manual) Monocytes % (Manual) Lymphocytes # (Manual) D-Dimer Potassium 3.1 L BUN 22 H Creatinine Glucose 184 H POC Glucose 374 H 248 H Phosphorus Magnesium Ferritin Lactate Dehydrogenase C-Reactive Protein NT-Pro-B Natriuret Pep Total Protein 6.2 L Albumin 3.2 L Urine WBC (Auto) Salicylates Acetaminophen Coronavirus (PCR) 04/18/20 04/18/20 04/18/20 08:03 10:07 10:07 WBC [place] % (Auto) Lymph # (Auto) Seg Neuts % (Manual) Lymphocytes % (Manual) Monocytes % (Manual) Lymphocytes # (Manual) D-Dimer 536.48 H Potassium BUN Creatinine Glucose POC Glucose 140 H Phosphorus Magnesium Ferritin 464.5 H Lactate Dehydrogenase C-Reactive Protein NT-Pro-B Natriuret Pep Total Protein Albumin Urine WBC (Auto) Salicylates Acetaminophen Coronavirus (PCR) 04/18/20 04/18/20 04/18/20 10:07 12:20 17:07 WBC [place] % (Auto) Lymph # (Auto) Seg Neuts % (Manual) Lymphocytes % (Manual) Monocytes % (Manual) Lymphocytes # (Manual) D-Dimer Potassium BUN Creatinine Glucose POC Glucose 287 H 364 H Phosphorus Magnesium Ferritin Lactate Dehydrogenase 307 H C-Reactive Protein NT-Pro-B Natriuret Pep Total Protein Albumin Urine WBC (Auto) Salicylates Acetaminophen Coronavirus (PCR) 04/18/20 04/19/20 04/19/20 21:09 07:31 07:44 WBC [place] % (Auto) Lymph # (Auto) Seg Neuts % (Manual) Lymphocytes % (Manual) Monocytes % (Manual) Lymphocytes # (Manual) D-Dimer Potassium 3.5 L BUN 21 H Creatinine Glucose 166 H POC Glucose 228 H 152 H Phosphorus Magnesium Ferritin Lactate Dehydrogenase C-Reactive Protein NT-Pro-B Natriuret Pep Total Protein Albumin 3.3 L Urine WBC (Auto) Salicylates Acetaminophen Coronavirus (PCR) 04/19/20 11:07 WBC [place] % (Auto) Lymph # (Auto) Seg Neuts % (Manual) Lymphocytes % (Manual) Monocytes % (Manual) Lymphocytes # (Manual) D-Dimer Potassium BUN Creatinine Glucose POC Glucose 187 H Phosphorus Magnesium Ferritin Lactate Dehydrogenase C-Reactive Protein NT-Pro-B Natriuret Pep Total Protein Albumin Urine WBC (Auto) Salicylates Acetaminophen Coronavirus (PCR)
[2020-04-19] MEDS: POTASSIUM CHLORIDE 10 MEQ 10 MEQ/100 ML BAG IV SCH ×4 (15:17→18:54)
--- NOTE | 2020-04-19 15:31 | Progress Note ---
Assessment and Plan Assessment and plan: Assessment and plan: 64-year-old -[place] female who presents with Covid pneumonia Sepsis secondary to Covid pneumonia Remdesivir and Decadron Pulmonology and infectious disease consulted Continue to attempt to wean patient off 2 L of oxygen Acute hypoxic respiratory failure Wean patient off of oxygen Patient does not meet criteria for home oxygen, satting at 92% with walk test Elevated D-dimer VQ scan low probability for PE Coronary artery disease history Atenolol and lisinopril Elevated BNP Echocardiogram report pending Hypokalemia Replete with potassium Diabetes mellitus type 2, [id number] Insulin sliding scale Hypertension Lisinopril, Imdur Hydralazine Hyperlipidemia Atorvastatin Urinary tract infection S/p ceftriaxone for 3 days Urine culture without any growth Acute kidney injury Resolved DVT prophylaxis: Heparin CODE STATUS: Full Disposition: Attempted wean patient off of oxygen, does not qualify, waiting for echocardiogram report. Patient is improving, replete potassium History Interval history: 04/19/2020 patient seen and examined, continues to be on oxygen, spoke with the nurse to attempt to wean patient off the oxygen. No fevers or chills overnight. Hospitalist Physical - Physical exam Narrative exam: General appearance: Present: no acute distress, well-nourished -EENT Eyes: Present: PERRL, EOM intact ENT: hearing intact, clear oral mucosa - Respiratory Respiratory effort: normal, 2 L nasal cannula oxygen Respiratory: bilateral: CTA, negative: rales, rhonchi, wheezing - Cardiovascular Rhythm: regular Heart Sounds: Present: S1 & S2. Absent: rub, click - Extremities Extremities: no ischemia, No edema, normal temperature, normal color, Full ROM - Abdominal General gastrointestinal: soft, non-tender, non-distended, normal bowel sounds - Neurologic Neurologic: CNII-XII intact, no focal deficits, moves all extremities - Constitutional Vitals: Temp Pulse Resp BP Pulse Ox 98.7 F 67 17 163/87 94 04/19/20 05:02 04/19/20 05:02 04/19/20 05:02 04/19/20 05:02 04/19/20 05:02 General appearance: Present: no acute distress, well-nourished Results - Labs CBC & Chem 7: 04/16/20 05:17 04/19/20 07:31 Labs: Laboratory Last Values WBC 4.9 K/mm3 (4.5-11.0) 04/16/20 05:17 RBC 3.65 M/mm3 (3.65-5.03) 04/16/20 05:17 Hgb 10.8 gm/dl (10.1-14.3) 04/16/20 05:17 Hct 33.1 % (30.3-42.9) 04/16/20 05:17 MCV 91 fl (79-97) 04/16/20 05:17 MCH 30 pg (28-32) 04/16/20 05:17 MCHC 33 % (30-34) 04/16/20 05:17 RDW 13.8 % (13.2-15.2) 04/16/20 05:17 Plt Count 232 K/mm3 (140-440) 04/16/20 05:17 Lymph % (Auto) 28.0 % (13.4-35.0) 04/14/20 15:35 [place] % (Auto) Applications Chemist 04/16/20 05:17 Eos % (Auto) 0.1 % (0.0-4.3) 04/14/20 15:35 Baso % (Auto) 0.3 % (0.0-1.8) 04/14/20 15:35 Lymph # (Auto) 1.0 K/mm3 (1.2-5.4) L 04/14/20 15:35 [place] # (Auto) 0.5 K/mm3 (0.0-0.8) 04/14/20 15:35 Eos # (Auto) 0.0 K/mm3 (0.0-0.4) 04/14/20 15:35 Baso # (Auto) 0.0 K/mm3 (0.0-0.1) 04/14/20 15:35 Add Manual Diff Complete 04/16/20 05:17 Total Counted 100 04/16/20 05:17 Seg Neutrophils % 57.1 % (40.0-70.0) 04/14/20 15:35 Seg Neuts % (Manual) 76.0 % (40.0-70.0) H 04/16/20 05:17 Lymphocytes % (Manual) 13.0 % (13.4-35.0) L 04/16/20 05:17 Monocytes % (Manual) 11.0 % (0.0-7.3) H 04/16/20 05:17 Nucleated RBC % Not Reportable 04/16/20 05:17 Seg Neutrophils # 2.0 K/mm3 (1.8-7.7) 04/14/20 15:35 Seg Neutrophils # Man 3.7 K/mm3 (1.8-7.7) 04/16/20 05:17 Band Neutrophils # 0.0 K/mm3 04/16/20 05:17 Lymphocytes # (Manual) 0.6 K/mm3 (1.2-5.4) L 04/16/20 05:17 Abs React Lymphs (Man) 0.0 K/mm3 04/16/20 05:17 Monocytes # (Manual) 0.5 K/mm3 (0.0-0.8) 04/16/20 05:17 Eosinophils # (Manual) 0.0 K/mm3 (0.0-0.4) 04/16/20 05:17 Basophils # (Manual) 0.0 K/mm3 (0.0-0.1) 04/16/20 05:17 Metamyelocytes # 0.0 K/mm3 04/16/20 05:17 Myelocytes # 0.0 K/mm3 04/16/20 05:17 Promyelocytes # 0.0 K/mm3 04/16/20 05:17 Blast Cells # 0.0 K/mm3 04/16/20 05:17 WBC Morphology Not Reportable 04/16/20 05:17 Hypersegmented Neuts Not Reportable 04/16/20 05:17 Hyposegmented Neuts Not Reportable 04/16/20 05:17 Hypogranular Neuts Not Reportable 04/16/20 05:17 Smudge Cells Not Reportable 04/16/20 05:17 Toxic Granulation Not Reportable 04/16/20 05:17 Toxic Vacuolation Not Reportable 04/16/20 05:17 Dohle Bodies Not Reportable 04/16/20 05:17 Pelger-Huet Anomaly Not Reportable 04/16/20 05:17 Guido Rods Not Reportable 04/16/20 05:17 Platelet Estimate Consistent w auto 04/16/20 05:17 Clumped Platelets Not Reportable 04/16/20 05:17 Plt Clumps, EDTA Not Reportable 04/16/20 05:17 Large Platelets Not Reportable 04/16/20 05:17 Giant Platelets Not Reportable 04/16/20 05:17 Platelet Satelliting Not Reportable 04/16/20 05:17 Plt Morphology Comment Not Reportable 04/16/20 05:17 RBC Morphology Not Reportable 04/16/20 05:17 Dimorphic RBCs Not Reportable 04/16/20 05:17 Polychromasia Not Reportable 04/16/20 05:17 Hypochromasia Not Reportable 04/16/20 05:17 Poikilocytosis Not Reportable 04/16/20 05:17 Anisocytosis Not Reportable 04/16/20 05:17 Microcytosis Not Reportable 04/16/20 05:17 Macrocytosis Not Reportable 04/16/20 05:17 Spherocytes Not Reportable 04/16/20 05:17 Pappenheimer Bodies Not Reportable 04/16/20 05:17 Sickle Cells Not Reportable 04/16/20 05:17 Target Cells Not Reportable 04/16/20 05:17 Tear Drop Cells Not Reportable 04/16/20 05:17 Ovalocytes Not Reportable 04/16/20 05:17 Helmet Cells Not Reportable 04/16/20 05:17 [place] Bodies Not Reportable 04/16/20 05:17 [place] Rings Not Reportable 04/16/20 05:17 [place] Cells 1+ 04/16/20 05:17 Bite Cells Not Reportable 04/16/20 05:17 Crenated Cell Not Reportable 04/16/20 05:17 Elliptocytes Not Reportable 04/16/20 05:17 Acanthocytes (Spur) Not Reportable 04/16/20 05:17 Rouleaux Not Reportable 04/16/20 05:17 Hemoglobin C Crystals Not Reportable 04/16/20 05:17 Schistocytes Few 04/16/20 05:17 Malaria parasites Not Reportable 04/16/20 05:17 Walter Bodies Not Reportable 04/16/20 05:17 Hem Pathologist Commnt No 04/16/20 05:17 PT 13.1 Sec. (12.2-14.9) 04/16/20 05:17 INR 1.00 (0.87-1.13) 04/16/20 05:17 D-Dimer 536.48 ng/mlDDU (0-234) H 04/18/20 10:07 Sodium 140 mmol/L (137-145) 04/19/20 07:31 Potassium 3.5 mmol/L (3.6-5.0) L 04/19/20 07:31 Chloride 105.8 mmol/L (98-107) 04/19/20 07:31 Carbon Dioxide 29 mmol/L (22-30) 04/19/20 07:31 Anion Gap 9 mmol/L 04/19/20 07:31 BUN 21 mg/dL (7-17) H 04/19/20 07:31 Creatinine 0.9 mg/dL (0.6-1.2) 04/19/20 07:31 Estimated GFR > 60 ml/min 04/19/20 07:31 BUN/Creatinine Ratio 23 % 04/19/20 07:31 Glucose 166 mg/dL (65-100) H 04/19/20 07:31 POC Glucose 187 mg/dL (70-105) H 04/19/20 11:07 Lactic Acid 1.30 mmol/L (0.7-2.0) 04/14/20 15:41 Calcium 9.8 mg/dL (8.4-10.2) 04/19/20 07:31 Phosphorus 1.20 mg/dL (2.5-4.5) L 04/14/20 15:35 Magnesium 1.40 mg/dL (1.7-2.3) L 04/17/20 05:28 Ferritin 464.5 ng/mL (10.0-200.0) H 04/18/20 10:07 Total Bilirubin 0.50 mg/dL (0.1-1.2) 04/19/20 07:31 Direct Bilirubin < 0.2 mg/dL (0-0.2) 04/17/20 05:28 Indirect Bilirubin 0.1 mg/dL 04/17/20 05:28 AST 25 units/L (5-40) 04/19/20 07:31 ALT 20 units/L (7-56) 04/19/20 07:31 Alkaline Phosphatase 64 units/L (35-129) 04/19/20 07:31 Ammonia 35.0 umol/L (25-60) 04/14/20 15:41 Lactate Dehydrogenase 307 units/L (91-180) H 04/18/20 10:07 C-Reactive Protein 1.10 mg/dL (0.00-1.30) 04/18/20 10:07 NT-Pro-B Natriuret Pep 1144 pg/mL (0-900) H 04/17/20 05:28 Total Protein 6.4 g/dL (6.3-8.2) 04/19/20 07:31 Albumin 3.3 g/dL (3.9-5) L 04/19/20 07:31 Albumin/Globulin Ratio 1.1 % 04/19/20 07:31 Procalcitonin < 0.05 ng/mL (<0.15) 04/16/20 16:20 Urine Color Yellow (Yellow) 04/14/20 16:11 Urine Turbidity Clear (Clear) 04/14/20 16:11 Urine pH 5.0 (5.0-7.0) 04/14/20 16:11 Ur Specific [place] 1.022 (1.003-1.030) 04/14/20 16:11 Urine Protein >500 mg/dL (Negative) 04/14/20 16:11 Urine Glucose (UA) Neg mg/dL (Negative) 04/14/20 16:11 Urine Ketones Neg mg/dL (Negative) 04/14/20 16:11 Urine Blood Neg (Negative) 04/14/20 16:11 Urine Nitrite Neg (Negative) 04/14/20 16:11 Urine Bilirubin Neg (Negative) 04/14/20 16:11 Urine Urobilinogen < 2.0 mg/dL (<2.0) 04/14/20 16:11 Ur Leukocyte Esterase Sm (Negative) 04/14/20 16:11 Urine WBC (Auto) 27.0 /HPF (0.0-6.0) H 04/14/20 16:11 Urine RBC (Auto) 2.0 /HPF (0.0-6.0) 04/14/20 16:11 U Epithel Cells (Auto) 2.0 /HPF (0-13.0) 04/14/20 16:11 Urine Mucus Few /HPF 04/14/20 16:11 Salicylates 1.1 mg/dL (2.8-20.0) L 04/14/20 15:41 Acetaminophen 5.0 ug/mL (10.0-30.0) L 04/14/20 15:41 Coronavirus (PCR) Positive (Negative) A 04/15/20 Unknown Microbiology: Microbiology 04/14/20 15:52 Peripheral/Venous Blood Culture - Preliminary NO GROWTH AFTER 4 DAYS 04/14/20 15:41 Peripheral/Venous Blood Culture - Preliminary NO GROWTH AFTER 4 DAYS [place]/IV: Voiding Method Toilet IV Catheter Type [Left INT / Saline Lock Antecubital] IV Catheter Type [Right Hand] INT / Saline Lock Active Medications - Current Medications Current Medications: Generic Name Dose Route Start Last Admin Trade Name Freq PRN Reason Stop Dose Admin Acetaminophen 650 mg 04/15/20 00:34 04/15/20 18:08 Acetaminophen 325 Mg Tab PO 650 mg Q4H PRN Administration Pain MILD(1-3)/Fever >100.5/GRAY Aspirin 81 mg 04/16/20 10:00 04/19/20 09:38 Aspirin 81 Mg Tab Chew PO 81 mg QDAY DURGA Administration Atenolol 50 mg 04/15/20 21:00 04/19/20 09:38 Atenolol 50 Mg Tab PO 50 mg QDAY DURGA Administration Atorvastatin Calcium 80 mg 04/15/20 22:00 04/18/20 21:36 Atorvastatin 40 Mg Tab PO 80 mg QHS DURGA Administration Dexamethasone 6 mg 04/16/20 10:00 04/19/20 09:38 Dexamethasone 4 Mg Tab PO 04/24/20 12:00 6 mg DAILY DURGA Administration Dextrose 50 ml 04/16/20 09:29 Dextrose 50% In Water (25gm) 50 Ml Syringe IV Q30MIN PRN Hypoglycemia Protocol Glipizide 10 mg 04/16/20 08:00 04/19/20 09:38 Glipizide 10 Mg Tab PO 10 mg BIDDIAB DURGA Administration Heparin Sodium (Porcine) 5,000 unit 04/15/20 06:00 04/19/20 13:19 Heparin 5,000 Unit/1 Ml Vial SUB-Q 5,000 unit Q8HR DURGA Administration Hydralazine HCl 10 mg 04/18/20 06:16 04/18/20 07:48 Hydralazine 20 Mg/1 Ml Inj IV 10 mg Q6H PRN Administration Blood Pressure REMDESIVIR 100 mg/ Sodium 250 mls @ 500 mls/hr 04/16/20 21:00 04/18/20 21:35 Chloride IV 04/19/20 21:29 500 mls/hr Q24HR@2100 DURGA Administration Potassium Chloride 10 meq in 100 mls @ 100 mls/hr 04/19/20 13:30 04/19/20 15:17 Kcl 10meq/100ml IV 04/19/20 17:29 100 mls/hr Q1H DURGA Administration Insulin Human Lispro 0 unit 04/16/20 11:30 04/19/20 13:19 Insulin Lispro 100 Unit/Ml SUB-Q 3 unit ACHS [facility] Administration Protocol Isosorbide Mononitrate 30 mg 04/15/20 21:00 04/19/20 09:38 Isosorbide Mononitrate Er 30 Mg Tab PO 30 mg QDAY DURGA Administration Lisinopril 40 mg 04/15/20 21:00 04/19/20 09:40 Lisinopril 40 Mg Tab PO 40 mg QDAY DURGA Administration Magnesium Hydroxide 30 ml 04/15/20 00:34 Magnesium Hydroxide (Mom) Oral Liqd Udc PO Q4H PRN Constipation Morphine Sulfate 2 mg 04/15/20 00:34 Morphine 2 Mg/1 Ml Inj IV Q4H PRN Pain, Moderate (4-6) Ondansetron HCl 4 mg 04/15/20 00:34 Ondansetron 4 Mg/2 Ml Inj IV Q8H PRN Nausea And Vomiting Potassium Chloride 10 meq 04/15/20 21:00 04/19/20 09:38 Potassium Chloride Er 10 Meq Tab PO 10 meq QDAY DURGA Administration Potassium Chloride 40 meq 04/19/20 12:52 04/19/20 13:18 Potassium Chloride Er 20 Meq Tab PO 04/19/20 16:00 40 meq ONCE NR Administration Sodium Chloride 10 ml 04/15/20 10:00 04/19/20 09:40 Sodium Chloride 0.9% 10 Ml Flush Syringe IV 10 ml BID DURGA Administration Sodium Chloride 10 ml 04/15/20 00:34 Sodium Chloride 0.9% 10 Ml Flush Syringe IV PRN PRN LINE FLUSH Sodium Chloride 50 ml 04/15/20 14:00 04/18/20 23:23 Sodium Chloride 0.9% 50 Ml Ivpb IV 04/19/20 21:01 50 ml Q24HR@2100 [facility] Administration Nutrition/Malnutrition Assess - Dietary Evaluation Nutrition/Malnutrition Findings: Nutrition Notes Start: 04/15/20 07:16 Freq: Status: Active Protocol: Document 04/18/20 09:52 EN (Rec: 04/18/20 10:01 EN [id number]) Co-Sign 04/18/20 09:52 MK Nutrition Notes Initial or Follow up Reassessment Current Diagnosis Coronary Artery Disease, Diabetes,Hypertension Other Pertinent Diagnosis COVID, Hx of CVA, Pneu Current Diet Cardiac, Consistent CHO Labs/Tests K+ 3.1 BUN 22 BG 184 Pertinent Medications K-Dur 10 mEq Decadron Height 5 ft 5 in Weight 84.4 kg [place] Body Weight (kg) 56.81 BMI 30.9 Weight Status Obese Subjective/Other Information F/u for intakes and ONS tolerance. Pt reports fair appetite and consuming 25-50% of meals due to food preferences. Pt denies N/V/D. Pt does not like grits or scrambled eggs. Pt would like turkey sausage and chicken noodle soup. Pt consuming 100% of ONS and prefers the vanilla flavor. Percent of energy/protein needs met: 76%/69% Burn Absent Trauma Absent GI Symptoms None Food Allergy Yes Current % PO Poor (25-49%) Minimum of two criteria No physical signs of malnutrition #2 Nutrition Diagnosis Food and nutrition-related knowledge deficit As Evidenced by Signs and Symptoms Pt has no further questions Diagnosis Progress(for reassessment Resolved documentation) #1 Nutrition Diagnosis Inadequate oral intake As Evidenced by Signs and Symptoms pt eating 25-50% of meals Diagnosis Progress(for reassessment Improved documentation) Is patient on ventilator? No Is Patient Ambulatory and/or Out of Bed Yes REE-([facility]-ambulatory/OOB) [ 1806.844 [id number]] Kcal/Kg value to use for calculation 17 Approximate Energy Requirements Using 1435 kcal/Kg Calculation Used for Recommendations Kcal/kg Additional Notes Protein: 70-84g (1-1.2g/kg AdjBW: 70kg) Fluid: 1ml/kcal Nutrition Intervention Change Diet Order: Continue current with food prefrences Add Supplement/Snack (indicate name/kcal Glucerna BID /protein ) Provides kCal: 440 Provides Protein (gm) 20 Goal #1 Meet at least 75% of protein and energy needs via PO and ONS intakes Anticipated Discharge Needs: Cardiac, Consistent CHO Follow-Up By: 04/20/20 Additional Comments F/u for PO intakes
[2020-04-19] MEDS ORDERED: SODIUM CHLORIDE 0.9% 250ML 250 ML ONE (16:45)
[2020-04-19] MEDS: REMDESIVIR 100 MG in SODIUM CHLORIDE 0.9% 250ML 250 ML IV SCH (21:21)
[2020-04-19] MEDS: SODIUM CHLORIDE 0.9% 50 ML IVPB IV SCH (21:21)
[2020-04-20] MEDS: HEPARIN 5,000 UNIT/1 ML VIAL SUB-Q SCH ×2 (05:01→13:07)
[2020-04-20 06:43] LABS: Calcium 9.6 mg/dL (8.4-10.2)
[2020-04-20] MEDS: INSULIN LISPRO 100 UNIT/ML SUB-Q SCH ×2 (08:28→12:37)
--- NOTE | 2020-04-20 08:41 | Progress Note ---
Assessment and Plan 64 y/o female, hypertensive, admitted with acute respiratory failure secondary to COVID 19 04/20/20: Pulm bhardwaj stable. Will sign off. Can hold on lasix today. Steroids for a total of 10 days. 04/19/20: Lasix again today with potassium replacement. BP still needs better control. Agree with walk test but likely does not qualify for oxygen. No objection to discharge pulmonary bhardwaj. Can finish steroids at home. Echo still not read 04/18/20: Will give lasix again today. needs better BP control. Not sure what to make of ambulatory test on yesterday and being placed back on oxygen last night as I cannot find in documentation of issues or significant desats. Please wean FiO2 for sats >88% and patient comfort. Replaced K as I am giving more lasix today. Please check labs tomorrow. 04/17/20: Stopped HCTZ and gave lasix 40. Prone if possible, despite low O2 requirement. Steroids and Remdesivir. Wean FiO2 for sats >88%. 1. Steroids for 10 days, Remdesivir for 5 2. Needs better BP control 3. Suggest checking 2D echo to evaluate for pulmonary HTN 4. Daily net negative state if possible 5. Prone as tolerated during the day and sleep prone at night. 6. Guarded prognosis, would ask [facility] if they have any outpatient records on her that might help with management. Subjective Date of service: 04/20/20 Principal diagnosis: COVID-19 Interval history: Patient not discharged. remains stable on room air. BP still elevated. Labs are good. Objective Vital Signs - 12hr 04/19/20 04/19/20 04/20/20 21:55 22:00 05:38 Temperature 98.0 F 98.9 F Pulse Rate 67 68 Respiratory 20 20 20 Rate Blood Pressure 171/92 158/87 O2 Sat by Pulse 97 95 92 Oximetry Constitutional: no acute distress, alert Eyes: non-icteric ENT: oropharynx moist Neck: supple Effort: normal Ascultation: Bilateral: rales Cardiovascular: regular rate and rhythm (no mrg) Gastrointestinal: normoactive bowel sounds, soft, non-tender Integumentary: normal Extremities: no cyanosis, no edema, pink and warm Neurologic: normal mental status, non-focal exam, pupils equal and round, CN II- XII normal Psychiatric: mood appropriate, affect normal CBC and BMP: 04/16/20 05:17 04/20/20 04:51 ABG, PT/INR, D-dimer: PT/INR, D-dimer PT 13.1 Sec. (12.2-14.9) 04/16/20 05:17 INR 1.00 (0.87-1.13) 04/16/20 05:17 D-Dimer 536.48 ng/mlDDU (0-234) H 04/18/20 10:07 Abnormal lab findings: Abnormal Labs 04/14/20 04/14/20 04/14/20 15:35 15:35 15:35 WBC 3.6 L [place] % (Auto) 14.5 H Lymph # (Auto) 1.0 L Seg Neuts % (Manual) Lymphocytes % (Manual) Monocytes % (Manual) Lymphocytes # (Manual) D-Dimer Potassium 3.3 L BUN 23 H Creatinine 1.4 H Glucose POC Glucose Phosphorus 1.20 L Magnesium 1.50 L Ferritin Lactate Dehydrogenase C-Reactive Protein NT-Pro-B Natriuret Pep Total Protein 6.1 L Albumin 3.7 L Urine WBC (Auto) Salicylates Acetaminophen Coronavirus (PCR) 04/14/20 04/14/20 04/14/20 15:41 15:41 16:11 WBC [place] % (Auto) Lymph # (Auto) Seg Neuts % (Manual) Lymphocytes % (Manual) Monocytes % (Manual) Lymphocytes # (Manual) D-Dimer Potassium BUN Creatinine Glucose POC Glucose Phosphorus Magnesium Ferritin Lactate Dehydrogenase C-Reactive Protein NT-Pro-B Natriuret Pep Total Protein Albumin Urine WBC (Auto) 27.0 H Salicylates 1.1 L Acetaminophen 5.0 L Coronavirus (PCR) 04/14/20 04/14/20 04/14/20 23:05 23:05 23:05 WBC [place] % (Auto) Lymph # (Auto) Seg Neuts % (Manual) Lymphocytes % (Manual) Monocytes % (Manual) Lymphocytes # (Manual) D-Dimer 664.34 H Potassium BUN Creatinine Glucose POC Glucose Phosphorus Magnesium Ferritin 388.0 H Lactate Dehydrogenase 380 H C-Reactive Protein 5.20 H NT-Pro-B Natriuret Pep Total Protein Albumin Urine WBC (Auto) Salicylates Acetaminophen Coronavirus (PCR) 04/15/20 04/15/20 04/15/20 08:32 13:05 17:05 WBC [place] % (Auto) Lymph # (Auto) Seg Neuts % (Manual) Lymphocytes % (Manual) Monocytes % (Manual) Lymphocytes # (Manual) D-Dimer Potassium BUN Creatinine Glucose POC Glucose 281 H 315 H 221 H Phosphorus Magnesium Ferritin Lactate Dehydrogenase C-Reactive Protein NT-Pro-B Natriuret Pep Total Protein Albumin Urine WBC (Auto) Salicylates Acetaminophen Coronavirus (PCR) 04/15/20 04/15/20 04/16/20 21:23 Unknown 05:17 WBC [place] % (Auto) Lymph # (Auto) Seg Neuts % (Manual) 76.0 H Lymphocytes % (Manual) 13.0 L Monocytes % (Manual) 11.0 H Lymphocytes # (Manual) 0.6 L D-Dimer Potassium BUN Creatinine Glucose POC Glucose 147 H Phosphorus Magnesium Ferritin Lactate Dehydrogenase C-Reactive Protein NT-Pro-B Natriuret Pep Total Protein Albumin Urine WBC (Auto) Salicylates Acetaminophen Coronavirus (PCR) Positive A 04/16/20 04/16/20 04/16/20 05:17 07:42 11:14 WBC [place] % (Auto) Lymph # (Auto) Seg Neuts % (Manual) Lymphocytes % (Manual) Monocytes % (Manual) Lymphocytes # (Manual) D-Dimer Potassium 3.4 L BUN 22 H Creatinine Glucose 128 H POC Glucose 119 H 119 H Phosphorus Magnesium Ferritin Lactate Dehydrogenase C-Reactive Protein NT-Pro-B Natriuret Pep Total Protein Albumin Urine WBC (Auto) Salicylates Acetaminophen Coronavirus (PCR) 04/16/20 04/16/20 04/16/20 16:20 16:20 16:20 WBC [place] % (Auto) Lymph # (Auto) Seg Neuts % (Manual) Lymphocytes % (Manual) Monocytes % (Manual) Lymphocytes # (Manual) D-Dimer 543.86 H Potassium BUN Creatinine Glucose POC Glucose Phosphorus Magnesium Ferritin 416.4 H Lactate Dehydrogenase 323 H C-Reactive Protein 2.10 H NT-Pro-B Natriuret Pep Total Protein Albumin Urine WBC (Auto) Salicylates Acetaminophen Coronavirus (PCR) 04/16/20 04/16/20 04/17/20 16:23 21:34 05:28 WBC [place] % (Auto) Lymph # (Auto) Seg Neuts % (Manual) Lymphocytes % (Manual) Monocytes % (Manual) Lymphocytes # (Manual) D-Dimer Potassium BUN Creatinine Glucose POC Glucose 168 H 260 H Phosphorus Magnesium 1.40 L Ferritin Lactate Dehydrogenase C-Reactive Protein NT-Pro-B Natriuret Pep 1144 H Total Protein Albumin Urine WBC (Auto) Salicylates Acetaminophen Coronavirus (PCR) 04/17/20 04/17/20 04/17/20 05:28 07:39 11:07 WBC [place] % (Auto) Lymph # (Auto) Seg Neuts % (Manual) Lymphocytes % (Manual) Monocytes % (Manual) Lymphocytes # (Manual) D-Dimer Potassium 3.3 L BUN 23 H Creatinine Glucose 160 H POC Glucose 147 H 147 H Phosphorus Magnesium Ferritin Lactate Dehydrogenase C-Reactive Protein NT-Pro-B Natriuret Pep Total Protein 5.8 L Albumin 3.3 L Urine WBC (Auto) Salicylates Acetaminophen Coronavirus (PCR) 04/17/20 04/17/20 04/18/20 16:40 21:23 05:26 WBC [place] % (Auto) Lymph # (Auto) Seg Neuts % (Manual) Lymphocytes % (Manual) Monocytes % (Manual) Lymphocytes # (Manual) D-Dimer Potassium 3.1 L BUN 22 H Creatinine Glucose 184 H POC Glucose 374 H 248 H Phosphorus Magnesium Ferritin Lactate Dehydrogenase C-Reactive Protein NT-Pro-B Natriuret Pep Total Protein 6.2 L Albumin 3.2 L Urine WBC (Auto) Salicylates Acetaminophen Coronavirus (PCR) 04/18/20 04/18/20 04/18/20 08:03 10:07 10:07 WBC [place] % (Auto) Lymph # (Auto) Seg Neuts % (Manual) Lymphocytes % (Manual) Monocytes % (Manual) Lymphocytes # (Manual) D-Dimer 536.48 H Potassium BUN Creatinine Glucose POC Glucose 140 H Phosphorus Magnesium Ferritin 464.5 H Lactate Dehydrogenase C-Reactive Protein NT-Pro-B Natriuret Pep Total Protein Albumin Urine WBC (Auto) Salicylates Acetaminophen Coronavirus (PCR) 04/18/20 04/18/20 04/18/20 10:07 12:20 17:07 WBC [place] % (Auto) Lymph # (Auto) Seg Neuts % (Manual) Lymphocytes % (Manual) Monocytes % (Manual) Lymphocytes # (Manual) D-Dimer Potassium BUN Creatinine Glucose POC Glucose 287 H 364 H Phosphorus Magnesium Ferritin Lactate Dehydrogenase 307 H C-Reactive Protein NT-Pro-B Natriuret Pep Total Protein Albumin Urine WBC (Auto) Salicylates Acetaminophen Coronavirus (PCR) 04/18/20 04/19/20 04/19/20 21:09 07:31 07:44 WBC [place] % (Auto) Lymph # (Auto) Seg Neuts % (Manual) Lymphocytes % (Manual) Monocytes % (Manual) Lymphocytes # (Manual) D-Dimer Potassium 3.5 L BUN 21 H Creatinine Glucose 166 H POC Glucose 228 H 152 H Phosphorus Magnesium Ferritin Lactate Dehydrogenase C-Reactive Protein NT-Pro-B Natriuret Pep Total Protein Albumin 3.3 L Urine WBC (Auto) Salicylates Acetaminophen Coronavirus (PCR) 04/19/20 04/19/20 04/19/20 11:07 16:08 21:54 WBC [place] % (Auto) Lymph # (Auto) Seg Neuts % (Manual) Lymphocytes % (Manual) Monocytes % (Manual) Lymphocytes # (Manual) D-Dimer Potassium BUN Creatinine Glucose POC Glucose 187 H 347 H 297 H Phosphorus Magnesium Ferritin Lactate Dehydrogenase C-Reactive Protein NT-Pro-B Natriuret Pep Total Protein Albumin Urine WBC (Auto) Salicylates Acetaminophen Coronavirus (PCR) 04/20/20 04:51 WBC [place] % (Auto) Lymph # (Auto) Seg Neuts % (Manual) Lymphocytes % (Manual) Monocytes % (Manual) Lymphocytes # (Manual) D-Dimer Potassium BUN 24 H Creatinine Glucose 175 H POC Glucose Phosphorus Magnesium Ferritin Lactate Dehydrogenase C-Reactive Protein NT-Pro-B Natriuret Pep Total Protein Albumin Urine WBC (Auto) Salicylates Acetaminophen Coronavirus (PCR)
[2020-04-20] MEDS: ASPIRIN 81 MG TAB CHEW PO SCH (09:26)
[2020-04-20] MEDS: POTASSIUM CHLORIDE ER 10 MEQ TAB PO SCH (09:27)
[2020-04-20] MEDS: LISINOPRIL 40 MG TAB PO SCH (09:27)
[2020-04-20] MEDS: glipiZIDE 10 MG TAB PO SCH (09:28)
[2020-04-20] MEDS: DEXAMETHASONE 4 MG TAB PO SCH (09:28)
[2020-04-20] MEDS: atenoloL 50 MG TAB PO SCH (09:28)
--- NOTE | 2020-04-20 09:36 | Progress Note ---
Assessment and Plan Cultures: Blood culture no growth to date Urine culture no growth to date A/P: 64-year-old female past medical history CAD, HTN admitted with COVID-19 pneumonia #COVID-19 pneumonia: Patient presented with a week of symptoms, chest x-ray with diffuse bilateral infiltrates, admission O2 88% sats on room air. Inflammatory markers elevated. VQ scan low probability for PE. Procalcitonin is low. #Acute hypoxemic respiratory failure: Likely secondary to COVID-19 infection. Patient is now on room air. #Leukopenia: Likely secondary to COVID-19 #Obesity #Mild confusion: Likely secondary to COVID-19. Resolved. #FRANSICO resolved. #UTI: Urine culture no growth. Status post ceftriaxone for 3 days. Recs: -Continue dexamethasone 6 mg IV/PO daily for 10 days -Continue remdesivir total 5 days D 5 of 5 -Obtain q48-72h inflammatory markers - ferritin, Ddimer, CRP, LDH, ordered today -Completed ceftriaxone for 3 days for UTI -Anticoagulation per hospital protocol -Proning as able -Obtain lower extremity ultrasound rule out DVT. Pending, reordered -Check 6 min walking test if ok then ok to d/c Will sign off Sarah Webb MD [facility] ([facility]) Office [phone] Subjective Date of service: 04/20/20 Principal diagnosis: COVID-19 Interval history: Patient is now on room air. No fever, no desaturations. Objective - Exam Narrative Exam: Physical exam deferred to minimize COVID-19 transmission during pandemic. ER a pr internal medicine physical examination notes reviewed. - Constitutional Vitals: Vital Signs Temp Pulse Resp BP Pulse Ox 98.9 F 68 20 144/74 92 04/20/20 05:38 04/20/20 05:38 04/20/20 05:38 04/20/20 09:28 04/20/20 05:38 Temperature -Last 24 Hours Temperature 98.9 F Temperature 98.0 F Temperature 98.2 F - Labs CBC & Chem 7: 04/16/20 05:17 04/20/20 04:51 Labs: Abnormal lab results 04/19/20 04/19/20 04/19/20 Range/Units 07:44 11:07 16:08 BUN (7-17) mg/dL Glucose (65-100) mg/dL POC Glucose 152 H 187 H 347 H (70-105) mg/dL 04/19/20 04/20/20 Range/Units 21:54 04:51 BUN 24 H (7-17) mg/dL Glucose 175 H (65-100) mg/dL POC Glucose 297 H (70-105) mg/dL
--- NOTE | 2020-04-20 10:54 | Progress Note ---
Assessment and Plan tte reviewed - EF 55-60%, diastolic dysfunction. Currently stable cardiac status. Cont present cardiac management. COVID-19 infection management per primary team / ID. Nothing further to add from cardiac perspective at this time. Will sign off. Recommend pt follow up with [place] [facility] within 2 weeks of discharge. The patient has been seen in conjunction with Dr. Jayjay Monson who agrees with the assessment and plan of care. - Patient Problems (1) COVID-19 virus infection Current Visit: Yes Status: Acute (2) Pneumonia Current Visit: Yes Status: Acute (3) CAD (coronary artery disease) Current Visit: Yes Status: Chronic (4) HTN (hypertension) Current Visit: Yes Status: Chronic (5) Diabetes Current Visit: Yes Status: Chronic (6) History of CVA (cerebrovascular accident) Current Visit: Yes Status: Chronic Subjective Date of service: 04/20/20 Principal diagnosis: COVID-19 Interval history: NAD. not on remote telemetry overnight. Objective Last Vital Signs Temp 98.9 F 04/20/20 05:38 Pulse 68 04/20/20 05:38 Resp 20 04/20/20 05:38 BP 144/74 04/20/20 09:28 Pulse Ox 92 04/20/20 05:38 - Physical Examination Narrative exam: agree with physical examination per primary - Labs and Meds Comprehensive Metabolic Panel 04/20/20 Range/Units 04:51 Sodium 138 (137-145) mmol/L Potassium 4.1 (3.6-5.0) mmol/L Chloride 105.4 (98-107) mmol/L Carbon Dioxide 25 (22-30) mmol/L BUN 24 H (7-17) mg/dL Creatinine 1.0 (0.6-1.2) mg/dL Glucose 175 H (65-100) mg/dL Calcium 9.6 (8.4-10.2) mg/dL - Imaging and Cardiology EKG: report reviewed, image reviewed - EKG Sinus rhythms and dysrhythmias: sinus rhythm
[2020-04-20 14:25] VITALS: BP 130/83
--- NOTE | 2020-04-20 16:20 | Discharge Summary ---
Providers - Providers Date of Admission: 04/14/20 22:54 Date of discharge: 04/20/20 Attending physician: MARLENE KIRBY MD 04/15/20 00:34 Consult to Physician [CONS] Routine Comment: Consulting Provider: ALEXANDER STEPHENS Physician Instructions: Reason For Exam: Pneumonia R/O Covid-19 04/15/20 00:35 Consult to Dietitian/Nutrition [CONS] Routine Physician Instructions: Reason For Exam: Reason for Consult: Diet education Primary care physician: ROBOTICS TESTING TECHNICIAN Hospitalization Condition: Good Hospital course: 64-year-old female with past medical history of coronary artery disease, hypertension, presented to [facility] emergency department complaining of cough and loss of smell. Patient was diagnosed with Covid 19 at outside facility. Symptoms became worse, oxygen saturations were in the 80s and supplemental oxygen was added. Infectious disease and patient was started on steroids and remdesivir. Patient had elevated BNP, cardiology was consulted and echocardiogram was carried out, no heart failure noted. Blood pressure medications were adjusted. Pulmonology was consulted for oxygen supplementation. With time, patient improved, weaned completely off the oxygen. Patient discharged home and will follow up with cardiology at [facility]. Disposition: DC-30 STILL A PATIENT Time spent for discharge: 35 - Discharge Diagnoses (1) Acute hypoxemic respiratory failure due to COVID-19 Status: Acute (2) COVID-19 virus infection Status: Acute (3) Hypokalemia Status: Acute (4) Pneumonia Status: Acute (5) CAD (coronary artery disease) Status: Chronic (6) Diabetes Status: Chronic (7) HTN (hypertension) Status: Chronic (8) History of CVA (cerebrovascular accident) Status: Chronic Core Measure Documentation - Palliative Care Palliative Care/ Comfort Measures: Not Applicable - Core Measures Any of the following diagnoses?: none Exam - Physical Exam Narrative exam: General appearance: Present: no acute distress, well-nourished -EENT Eyes: Present: PERRL, EOM intact ENT: hearing intact, clear oral mucosa - Respiratory Respiratory effort: normal Respiratory: bilateral: CTA, negative: rales, rhonchi, wheezing - Cardiovascular Rhythm: regular Heart Sounds: Present: S1 & S2. Absent: rub, click - Extremities Extremities: no ischemia, No edema, normal temperature, normal color, Full ROM - Abdominal General gastrointestinal: soft, non-tender, non-distended, normal bowel sounds - Neurologic Neurologic: CNII-XII intact, no focal deficits, moves all extremities - Constitutional Vitals: Temp Pulse Resp BP Pulse Ox 98.0 F 62 24 130/83 97 04/20/20 12:21 04/20/20 12:21 04/20/20 12:21 04/20/20 12:21 04/20/20 12:21 Plan Activity: no restrictions Diet: low salt Follow up with: PRIMARY CAREMD [Primary Care Provider] - 3-5 Days Prescriptions: Atenolol 50 mg PO DAILY #90 tab hydroCHLOROthiazide [Hydrochlorothiazide] 12.5 mg PO DAILY #90 cap ISOSORBIDE MONOnitrate [Imdur ER] 30 mg PO DAILY #90 tab lisinopriL [Zestril TAB] 40 mg PO QDAY #90 tab
== END 2020-04-20 15:32 | disposition home or self-care (01) | DRG 871 ==
LOC: ED 14:54 → 3A 22:54 → OBSVTOIN 22:54 → 3A 04-15 06:54
PROVIDERS: ADMIT Internal Medicine Geriatric Medicine; ATTEND Family Medicine
PROC: XW033E5 Introduction of Remdesivir Anti-infective into Peripheral Vein, Percutaneous Approach, New Technology Group 5 (ICD-10-PCS; principal; 2020-04-15)
DX: A41.9 Sepsis, unspecified organism (principal); U07.1 COVID-19; J96.01 Acute respiratory failure with hypoxia; J12.82 Pneumonia due to coronavirus disease 2019; N17.0 Acute kidney failure with tubular necrosis; N30.00 Acute cystitis without hematuria; E87.6 Hypokalemia; E83.39 Other disorders of phosphorus metabolism; E83.42 Hypomagnesemia; E11.9 Type 2 diabetes mellitus without complications; D72.819 Decreased white blood cell count, unspecified; E66.9 Obesity, unspecified; I10 Essential (primary) hypertension; I25.10 Atherosclerotic heart disease of native coronary artery without angina pectoris; Z91.013 Allergy to seafood; Z91.018 Allergy to other foods; Z86.73 Personal history of transient ischemic attack (TIA), and cerebral infarction without residual deficits; Z95.818 Presence of other cardiac implants and grafts; Z79.899 Other long term (current) drug therapy; Z79.891 Long term (current) use of opiate analgesic; Z79.01 Long term (current) use of anticoagulants; Z79.4 Long term (current) use of insulin; Z79.2 Long term (current) use of antibiotics; Z68.30 Body mass index [BMI] 30.0-30.9, adult
CPT/HCPCS: 36415; 70450; 71045; 71046; 78580; 80048; 80053; 80076; 80320; 81001; 82140; 82728; 82947; 82962; 83615; 83735; 83880; 84100; 84145; 85007; 85025; 85379; 85610; 86140; 87040; 87086; 93005; 93306; 96374; G0378; A9270-GY; A9540; G0480; J0360; J0456; J0696; J1100; J1644; J1815; J1940; J3475; J3480; J7040; J7050; J8540; U0003

== ENCOUNTER 2020-04-28 01:17 | Inpatient (IN) | payer OTHER, MEDICARE ==
--- NOTE | 2020-04-28 03:05 | Emergency Department Report ---
ED Chest Pain HPI - General Chief Complaint: Chest Pain Stated Complaint: CHEST PAIN PUI?: No Time Seen by Provider: 04/28/20 02:34 Source: patient Mode of arrival: Wheelchair Limitations: No Limitations - History of Present Illness Initial Comments: Patient is a 64-year-old female that presents emergency room with complaints of chest pain. Patient states that her chest pain started yesterday. Patient states is worsening. Patient states it is a 9 out of 10. Patient states she was brought in by EMS. Patient states to give her a nitro under her tongue. Patient states that she was recently in the hospital for pneumonia and COVID-19. Patient states she was admitted to this hospital. Patient states she was discharged recently. Patient states that she is also having nausea. Patient states that time she is also having acid reflux symptoms. Patient denies cough. Patient denies fever and chills. Patient denies sh ortness of breath. MD Complaint: chest pain -: Sudden Onset: during rest Pain Location: substernal Pain Radiation: none Severity: severe Severity scale (0 -10): 9 Quality: sharp Consistency: constant Improves With: rest Worsens With: exertion re: nausea. denies: vomting, diaphoresis, dyspnea, sense of impending doom Other Symptoms: burping. denies: cough, fever, syncope, rash, acid taste in mouth, leg swelling, palpitations Treatments Prior to Arrival: aspirin, nitroglycerin Aspirin use within the Past 7 Days: (1) Yes - Related Data On Oral Contraceptives: No Home Medications Medication Instructions Recorded Confirmed Last Taken Aspirin [Aspirin BABY CHEW TAB] 81 mg PO DAILY 04/15/20 04/15/20 04/14/20 Atorvastatin Calcium [Lipitor] 80 mg PO DAILY 04/15/20 04/15/20 04/14/20 Dabigatran Etexilate Mesylate 150 mg PO BID 04/15/20 04/15/20 04/14/20 [Pradaxa] Metformin HCl [metFORMIN] 1,000 mg PO BID 04/15/20 04/15/20 04/14/20 Potassium Chloride [K-Dur] 10 meq PO QDAY 04/15/20 04/15/20 04/14/20 glipiZIDE [Glucotrol] 10 mg PO BID 04/15/20 04/15/20 04/14/20 Previous Rx's Medication Instructions Recorded Last Taken Type Atenolol 50 mg PO DAILY #90 tab 04/20/20 Unknown Rx ISOSORBIDE MONOnitrate [Imdur ER] 30 mg PO DAILY #90 tab 04/20/20 Unknown Rx hydroCHLOROthiazide 12.5 mg PO DAILY #90 cap 04/20/20 Unknown Rx [Hydrochlorothiazide] lisinopriL [Zestril TAB] 40 mg PO QDAY #90 tab 04/20/20 Unknown Rx Allergies Allergy/AdvReac Type Severity Reaction Status Date / Time Iodine and Iodide Containing Allergy Rash Verified 04/28/20 01:40 Produc shellfish derived Allergy Swelling Verified 04/14/20 15:11 strawberry Allergy Swelling Verified 04/14/20 15:11 iodine AdvReac Mild Rash Uncoded 04/28/20 01:40 Heart Score - HEART Score History: Moderately suspicious EKG: Non-specific Age: 45-65 Risk factors: > 3 risk factors or hx of atherosclerotic disease Troponin: < normal limit HEART Score: 5 ED Review of Systems ROS: Stated complaint: CHEST PAIN Other details as noted in HPI Constitutional: denies: chills, fever Eyes: denies: eye pain, eye discharge, vision change ENT: denies: ear pain, throat pain Respiratory: denies: cough, shortness of breath, wheezing Cardiovascular: chest pain. denies: palpitations Endocrine: no symptoms reported Gastrointestinal: nausea. denies: abdominal pain, vomiting, diarrhea Genitourinary: denies: urgency, dysuria, discharge Musculoskeletal: denies: back pain, joint swelling, arthralgia Skin: denies: rash, lesions Neurological: denies: headache, weakness, paresthesias Psychiatric: denies: anxiety, depression Hematological/Lymphatic: denies: easy bleeding, easy bruising ED Past Medical Hx - Past Medical History Previous Medical History?: Yes Hx Hypertension: Yes Hx CVA: Yes Hx Diabetes: Yes - Surgical History Past Surgical History?: Yes Hx Coronary Stent: Yes - Family History Family history: no significant - Social History Smoking Status: Never Smoker Substance Use Type: None - Medications Home Medications: Home Medications Medication Instructions Recorded Confirmed Last Taken Type Aspirin [Aspirin BABY CHEW TAB] 81 mg PO DAILY 04/15/20 04/15/20 04/14/20 History Atorvastatin Calcium [Lipitor] 80 mg PO DAILY 04/15/20 04/15/20 04/14/20 History Dabigatran Etexilate Mesylate 150 mg PO BID 04/15/20 04/15/20 04/14/20 History [Pradaxa] Metformin HCl [metFORMIN] 1,000 mg PO BID 04/15/20 04/15/20 04/14/20 History Potassium Chloride [K-Dur] 10 meq PO QDAY 04/15/20 04/15/20 04/14/20 History glipiZIDE [Glucotrol] 10 mg PO BID 04/15/20 04/15/20 04/14/20 History Atenolol 50 mg PO DAILY #90 tab 04/20/20 Unknown Rx ISOSORBIDE MONOnitrate [Imdur ER] 30 mg PO DAILY #90 tab 04/20/20 Unknown Rx hydroCHLOROthiazide 12.5 mg PO DAILY #90 cap 04/20/20 Unknown Rx [Hydrochlorothiazide] lisinopriL [Zestril TAB] 40 mg PO QDAY #90 tab 04/20/20 Unknown Rx ED Physical Exam - General Limitations: No Limitations General appearance: alert, in no apparent distress - Head Head exam: Present: atraumatic, normocephalic - Eye Eye exam: Present: normal appearance - ENT ENT exam: Present: mucous membranes moist - Neck Neck exam: Present: normal inspection - Respiratory Respiratory exam: Present: normal lung sounds bilaterally. Absent: respiratory distress, chest wall tenderness - Cardiovascular Cardiovascular Exam: Present: regular rate, normal rhythm. Absent: systolic murmur, diastolic murmur, rubs, gallop - GI/Abdominal GI/Abdominal exam: Present: soft, tenderness (Epigastric tenderness), normal bowel sounds - Extremities Exam Extremities exam: Present: normal inspection - Back Exam Back exam: Present: normal inspection - Neurological Exam Neurological exam: Present: alert, oriented X3 - Psychiatric Psychiatric exam: Present: normal affect, normal mood - Skin Skin exam: Present: warm, dry, intact, normal color. Absent: rash ED Course Vital Signs 04/28/20 04/28/20 04/28/20 01:41 02:41 03:01 Temperature 98.6 F Pulse Rate 80 77 Respiratory 17 20 20 Rate Blood Pressure 176/100 150/91 O2 Sat by Pulse 95 96 Oximetry 04/28/20 04/28/20 03:31 04:01 Temperature Pulse Rate 76 80 Respiratory 26 H 26 H Rate Blood Pressure 163/90 151/79 O2 Sat by Pulse 97 98 Oximetry - Reevaluation(s) Reevaluation #1: I discussed all results with patient. I discussed plan of care with patient. Patient agrees with plan of care and admission. Patient to be admitted to the hospitalist service. 04/28/20 04:37 - Consultations Consultation #1: Hospitalist consulted for admission. Hospitalist to admit patient. 04/28/20 04:37 HUNTER score - Hunter Score Age > 65: (1) Yes Aspirin use within the Past 7 Days: (1) Yes 3 or more CAD Risk Factors: (1) Yes 2 or more Angina events in past 24 hrs: (1) Yes Known CAD with more than 50% Stenosis: (0) No Elevated Cardiac Markers: (0) No ST Deviation Greater than 0.5mm: (0) No HUNTER Score: 4 ED Medical Decision Making - Lab Data Result diagrams: 04/28/20 02:53 04/28/20 02:53 - EKG Data -: EKG Interpreted by Me EKG shows normal: sinus rhythm, axis, intervals, QRS complexes, ST-T waves Rate: normal - Radiology Data Radiology results: report reviewed, image reviewed interpreted by me: Chest x-ray: No pneumonia, no pneumothorax, no foreign body, no osseous findings, no acute findings CHEST 1 VIEW 04/28/2020 3:07 AM INDICATION / CLINICAL INFORMATION: Chest Pain. COMPARISON: 04/16/20 FINDINGS: SUPPORT DEVICES: None. HEART / MEDIASTINUM: No significant abnormality. LUNGS / PLEURA: Interval improvement in patchy bilateral pulmonary opacities. No pneumothorax. ADDITIONAL FINDINGS: No significant additional findings. IMPRESSION: 1. Interval improvement. - Medical Decision Making Patient is a 64-year-old female who presents emergency room with complaints of chest pain. Patient has a history of CAD and diabetes. Patient has an elevated heart score and HUNTER score. Patient had labs done which were essentially unremarkable. Patient's troponin was negative. Patient had a chest x-ray was negative for acute findings. Patient had an EKG which was negative for acute findings. Patient admitted to the hospitalist service for further evaluation treatment and rule out ACS. - Differential Diagnosis ACS, chest pain, CAD, gastritis, GERD, Critical Care Time: Yes Critical care time in (mins) excluding proc time.: 35 Critical care attestation.: If time is entered above; I have spent that time in minutes in the direct care of this critically ill patient, excluding procedure time. Critical Care Time: 35 minutes ED Disposition Clinical Impression: Renal insufficiency Chest pain Qualifiers: Chest pain type: unspecified Qualified Code(s): R07.9 - Chest pain, unspecified CAD (coronary artery disease) Qualifiers: Coronary Disease-Associated Artery/Lesion type: [place] artery [place] vs. transplanted heart: [place] heart Associated angina: with unspecified angina Qualified Code(s): I25.119 - Atherosclerotic heart disease of [place] coronary artery with unspecified angina pectoris Disposition: 09 OP ADMIT IP TO THIS HOSP Is pt being admited?: Yes Does the pt Need Aspirin: No Condition: Critical Instructions: Chest Pain (ED) Time of Disposition: 04:44
--- NOTE | 2020-04-28 03:31 | XRay Report ---
CHEST 1 VIEW 04/28/2020 3:07 AM INDICATION / CLINICAL INFORMATION: Chest Pain. COMPARISON: 04/16/20 FINDINGS: SUPPORT DEVICES: None. HEART / MEDIASTINUM: No significant abnormality. LUNGS / PLEURA: Interval improvement in patchy bilateral pulmonary opacities. No pneumothorax. ADDITIONAL FINDINGS: No significant additional findings. IMPRESSION: 1. Interval improvement. Signer Name: Lily Pink MD Signed: 04/28/2020 3:27 AM Workstation Name: [id number]
[2020-04-28 04:12] LABS: Basophils # (Auto) 0.1 K/mm3 (0.0-0.1); Basophils % (Auto) 0.7 % (0.0-1.8); Eosinophils # (Auto) 0.1 K/mm3 (0.0-0.4); Eosinophils % (Auto) 1.1 % (0.0-4.3); Hematocrit 34.5 % (30.3-42.9); Hemoglobin 11.7 gm/dl (10.1-14.3); Lymphocytes # (Auto) 1.6 K/mm3 (1.2-5.4); Lymphocytes % (Auto) 21.9 % (13.4-35.0); Mean Corpuscular HGB Conc 34 % (30-34); Mean Corpuscular Volume 90 fl (79-97); Monocytes # (Auto) 0.5 K/mm3 (0.0-0.8); Monocytes % (Auto) 6.9 % (0.0-7.3); Platelet Count 285 K/mm3 (140-440); Red Blood Count 3.85 M/mm3 (3.65-5.03); Red Cell Distribution Width 13.7 % (13.2-15.2)
[2020-04-28 04:15] LABS: Albumin 3.5 g/dL (3.9-5); Calcium 11.9 mg/dL (8.4-10.2)
[2020-04-28] MEDS ORDERED: ASPIRIN 325 MG TAB PO ONE (04:59)
--- NOTE | 2020-04-28 04:59 | History and Physical Report ---
History of Present Illness Date of admission: 04/28/20 04:46 Medications and Allergies Allergies Allergy/AdvReac Type Severity Reaction Status Date / Time Iodine and Iodide Containing Allergy Rash Verified 04/28/20 01:40 Produc shellfish derived Allergy Swelling Verified 04/14/20 15:11 strawberry Allergy Swelling Verified 04/14/20 15:11 iodine AdvReac Mild Rash Uncoded 04/28/20 01:40 Home Medications Medication Instructions Recorded Confirmed Last Taken Type Aspirin [Aspirin BABY CHEW TAB] 81 mg PO DAILY 04/15/20 04/15/20 04/14/20 History Atorvastatin Calcium [Lipitor] 80 mg PO DAILY 04/15/20 04/15/20 04/14/20 History Dabigatran Etexilate Mesylate 150 mg PO BID 04/15/20 04/15/20 04/14/20 History [Pradaxa] Metformin HCl [metFORMIN] 1,000 mg PO BID 04/15/20 04/15/20 04/14/20 History Potassium Chloride [K-Dur] 10 meq PO QDAY 04/15/20 04/15/20 04/14/20 History glipiZIDE [Glucotrol] 10 mg PO BID 04/15/20 04/15/20 04/14/20 History Atenolol 50 mg PO DAILY #90 tab 04/20/20 Unknown Rx ISOSORBIDE MONOnitrate [Imdur ER] 30 mg PO DAILY #90 tab 04/20/20 Unknown Rx hydroCHLOROthiazide 12.5 mg PO DAILY #90 cap 04/20/20 Unknown Rx [Hydrochlorothiazide] lisinopriL [Zestril TAB] 40 mg PO QDAY #90 tab 04/20/20 Unknown Rx Exam - Constitutional Vitals: Temp Pulse Resp BP Pulse Ox 98.6 F 80 26 H 151/79 98 04/28/20 01:41 04/28/20 04:01 04/28/20 04:01 04/28/20 04:01 04/28/20 04:01 HEART Score - HEART Score EKG: Non-specific Age: 45-65 Risk factors: > 3 risk factors or hx of atherosclerotic disease Troponin: Troponin T < 0.010 ng/mL (0.00-0.029) 04/28/20 02:53 Troponin: < normal limit Results - Labs CBC & Chem 7: 04/28/20 02:53 04/28/20 02:53 Labs: Abnormal lab results 04/28/20 Range/Units 02:53 BUN 22 H (7-17) mg/dL Creatinine 1.4 H (0.6-1.2) mg/dL Glucose 251 H (65-100) mg/dL Calcium 11.9 H (8.4-10.2) mg/dL Total Protein 6.1 L (6.3-8.2) g/dL Albumin 3.5 L (3.9-5) g/dL
--- NOTE | 2020-04-28 05:07 | History and Physical Report ---
History of Present Illness Date of examination: 04/28/20 Date of admission: 04/28/20 04:46 Chief complaint: Chest pain History of present illness: Patient is a 64-year-old female that presents emergency room with complaints of chest pain. Patient states that her chest pain started yesterday. Patient states is worsening. Patient states it is a 9 out of 10. Patient states she was brought in by EMS. Patient states to give her a nitro under her tongue. Patient states that she was recently in the hospital for pneumonia and COVID-19. Patient states she was admitted to this hospital. Patient states she was discharged recently. Patient states that she is also having nausea. Patient states that time she is also having acid reflux symptoms. ED work up shows WBC 7.2, hemoglobin 11.7, sodium 139, potassium 4.2, Cr 1.4 glucose 251, troponin 0.016, Chest x-ray Interval improvement Patient seen at bedside in ED. Patient reports chest pain. Pain level 6/10. She reports history CAD. Past History Past Medical History: CAD, diabetes, hypertension, hyperlipidemia Past Surgical History: Other (s/p stent placement) Social history: no significant social history, lives with family Family history: no significant family history Medications and Allergies Allergies Allergy/AdvReac Type Severity Reaction Status Date / Time Iodine and Iodide Containing Allergy Rash Verified 04/28/20 01:40 Produc shellfish derived Allergy Swelling Verified 04/14/20 15:11 strawberry Allergy Swelling Verified 04/14/20 15:11 iodine AdvReac Mild Rash Uncoded 04/28/20 01:40 Home Medications Medication Instructions Recorded Confirmed Last Taken Type Aspirin [Aspirin BABY CHEW TAB] 81 mg PO DAILY 04/15/20 04/15/20 04/14/20 History Atorvastatin Calcium [Lipitor] 80 mg PO DAILY 04/15/20 04/15/20 04/14/20 History Dabigatran Etexilate Mesylate 150 mg PO BID 04/15/20 04/15/20 04/14/20 History [Pradaxa] Metformin HCl [metFORMIN] 1,000 mg PO BID 04/15/20 04/15/20 04/14/20 History Potassium Chloride [K-Dur] 10 meq PO QDAY 04/15/20 04/15/20 04/14/20 History glipiZIDE [Glucotrol] 10 mg PO BID 0104/15/20 04/14/20 History Atenolol 50 mg PO DAILY #90 tab 04/20/20 Unknown Rx ISOSORBIDE MONOnitrate [Imdur ER] 30 mg PO DAILY #90 tab 04/20/20 Unknown Rx hydroCHLOROthiazide 12.5 mg PO DAILY #90 cap 04/20/20 Unknown Rx [Hydrochlorothiazide] lisinopriL [Zestril TAB] 40 mg PO QDAY #90 tab 04/20/20 Unknown Rx Review of Systems Constitutional: no fatigue Ears, nose, mouth and throat: no epistaxis Breasts: no discharge Cardiovascular: chest pain Respiratory: no congestion Gastrointestinal: no melena Rectal: no hemorrhoids Musculoskeletal: no neck pain Psychiatric: no disorientation, no hallucinations Hematologic/Lymphatic: no easy bruising Allergic/Immunologic: no urticaria Exam - Constitutional Vitals: Temp Pulse Resp BP Pulse Ox 98.6 F 80 26 H 151/79 98 04/28/20 01:41 04/28/20 04:01 04/28/20 04:01 04/28/20 04:01 04/28/20 04:01 General appearance: Present: no acute distress, well-nourished - EENT Eyes: Present: PERRL ENT: hearing intact, clear oral mucosa - Neck Neck: Present: supple, normal ROM - Respiratory Respiratory effort: normal Respiratory: bilateral: CTA - Cardiovascular Heart rate: 80 Heart Sounds: Present: S1 & S2. Absent: rub, click - Extremities Extremities: pulses symmetrical, No edema Peripheral Pulses: within normal limits - Abdominal General gastrointestinal: Present: soft, non-tender, non-distended, normal bowel sounds Female genitourinary: Present: normal - Integumentary Integumentary: Present: clear, warm, dry - Musculoskeletal Musculoskeletal: gait normal, strength equal bilaterally - Psychiatric Psychiatric: appropriate mood/affect, intact judgment & insight, cooperative - Neurologic Neurologic: CNII-XII intact, moves all extremities - Allied Health Allied health notes reviewed: nursing HEART Score - HEART Score EKG: Non-specific Age: 45-65 Risk factors: > 3 risk factors or hx of atherosclerotic disease Troponin: Troponin T < 0.010 ng/mL (0.00-0.029) 04/28/20 02:53 Troponin: < normal limit Results - Labs CBC & Chem 7: 04/28/20 02:53 04/28/20 02:53 Labs: Abnormal lab results 04/28/20 Range/Units 02:53 BUN 22 H (7-17) mg/dL Creatinine 1.4 H (0.6-1.2) mg/dL Glucose 251 H (65-100) mg/dL Calcium 11.9 H (8.4-10.2) mg/dL Total Protein 6.1 L (6.3-8.2) g/dL Albumin 3.5 L (3.9-5) g/dL Assessment and Plan - Patient Problems (1) Chest pain Current Visit: Yes Status: Acute Qualifiers: Chest pain type: unspecified Qualified Code(s): R07.9 - Chest pain, unspecified Plan to address problem: monitor cardiac enzymes Troponin negative, EKG Chest x-ray -no acute finding (2) CAD (coronary artery disease) Current Visit: Yes Status: Chronic Qualifiers: Coronary Disease-Associated Artery/Lesion type: [place] artery [place] vs. transplanted heart: [place] heart Associated angina: with unspecified angina Qualified Code(s): I25.119 - Atherosclerotic heart disease of [place] coronary artery with unspecified angina pectoris Plan to address problem: continue anti-pletelet (3) FRANSICO (acute kidney injury) Current Visit: Yes Status: Acute Plan to address problem: Monitor kidney function Avoid nephrotoxic drugs Check sodium osmolarity and sodium jonn (4) Diabetes Current Visit: Yes Status: Acute Plan to address problem: Monitor blood sugar with SSI Check Hga1c (5) DVT prophylaxis Current Visit: No Status: Acute Plan to address problem: Subcutaneous heparin
[2020-04-28] MEDS ORDERED: ONDANSETRON 4 MG/2 ML INJ IV PRN (05:40)
[2020-04-28] MEDS ORDERED: traMADol 50 MG TAB PO PRN (05:40)
--- NOTE | 2020-04-28 08:46 | Ultrasound Report ---
Renal ultrasound INDICATION: Acute renal failure FINDINGS: Both kidneys measure about 12 cm in length. No hydronephrosis. There is a 1.8 cm cyst withi n the right kidney with minimal complexity. Both kidneys are mildly echogenic IMPRESSION: Echogenic kidneys. No hydronephrosis. Signer Name: Romel Valdez MD Signed: 04/28/2020 8:42 AM Workstation Name: [id number]
[2020-04-28] MEDS: INSULIN LISPRO 100 UNIT/ML SUB-Q SCH ×4 (09:12→21:42)
[2020-04-28] MEDS: metFORMIN 500 MG TAB PO SCH ×2 (09:13→16:48)
[2020-04-28] MEDS ORDERED: HEPARIN 5,000 UNIT/1 ML VIAL SUB-Q SCH (10:00)
--- NOTE | 2020-04-28 10:34 | Progress Note ---
Assessment and Plan Assessment and plan: Chest pain. Acute kidney injury. COVID pneumonia/infection. Pt with recent COVID dx on 04/15 with previous hospitalization. Diabetes mellitus type 2 Obesity DVT prophylaxis. 04/28/2020. Recheck COVID testing to determine COVID isolation. Pt. s/p dexamethasone and remdesivir treatment on last hospitalization. CXR negative. ECHO on previous hospitalization EF 55-60%, diastolic dysfunction. Await cardiology recommendations History Interval history: No new issues overnight. Hospitalist Physical - Constitutional Vitals: Temp Pulse Resp BP Pulse Ox 98.4 F 83 18 139/82 96 04/28/20 08:32 04/28/20 08:32 04/28/20 08:32 04/28/20 08:32 04/28/20 08:32 General appearance: Present: no acute distress, well-nourished - EENT Eyes: Present: PERRL, EOM intact ENT: hearing intact, clear oral mucosa, dentition normal - Neck Neck: Present: supple, normal ROM - Respiratory Respiratory effort: normal Respiratory: bilateral: CTA - Cardiovascular Rhythm: regular Heart Sounds: Present: S1 & S2. Absent: gallop, rub - Extremities Extremities: no ischemia, No edema, Full ROM - Abdominal General gastrointestinal: soft, non-tender, non-distended, normal bowel sounds - Integumentary Integumentary: Present: clear, warm, dry - Neurologic Neurologic: CNII-XII intact, moves all extremities HEART Score - HEART Score EKG: Non-specific Age: 45-65 Risk factors: > 3 risk factors or hx of atherosclerotic disease Troponin: Troponin T < 0.010 ng/mL (0.00-0.029) 04/28/20 08:51 Troponin: < normal limit Results - Labs CBC & Chem 7: 04/28/20 02:53 04/28/20 02:53 Labs: Laboratory Last Values WBC 7.2 K/mm3 (4.5-11.0) 04/28/20 02:53 RBC 3.85 M/mm3 (3.65-5.03) 04/28/20 02:53 Hgb 11.7 gm/dl (10.1-14.3) 04/28/20 02:53 Hct 34.5 % (30.3-42.9) 04/28/20 02:53 MCV 90 fl (79-97) 04/28/20 02:53 MCH 31 pg (28-32) 04/28/20 02:53 MCHC 34 % (30-34) 04/28/20 02:53 RDW 13.7 % (13.2-15.2) 04/28/20 02:53 Plt Count 285 K/mm3 (140-440) 04/28/20 02:53 Lymph % (Auto) 21.9 % (13.4-35.0) 04/28/20 02:53 Glynn % (Auto) 6.9 % (0.0-7.3) 04/28/20 02:53 Eos % (Auto) 1.1 % (0.0-4.3) 04/28/20 02:53 Baso % (Auto) 0.7 % (0.0-1.8) 04/28/20 02:53 Lymph # (Auto) 1.6 K/mm3 (1.2-5.4) 04/28/20 02:53 Glynn # (Auto) 0.5 K/mm3 (0.0-0.8) 04/28/20 02:53 Eos # (Auto) 0.1 K/mm3 (0.0-0.4) 04/28/20 02:53 Baso # (Auto) 0.1 K/mm3 (0.0-0.1) 04/28/20 02:53 Seg Neutrophils % 69.4 % (40.0-70.0) 04/28/20 02:53 Seg Neutrophils # 5.0 K/mm3 (1.8-7.7) 04/28/20 02:53 Sodium 139 mmol/L (137-145) 04/28/20 02:53 Potassium 4.2 mmol/L (3.6-5.0) 04/28/20 02:53 Chloride 102.5 mmol/L (98-107) 04/28/20 02:53 Carbon Dioxide 24 mmol/L (22-30) 04/28/20 02:53 Anion Gap 17 mmol/L 04/28/20 02:53 BUN 22 mg/dL (7-17) H 04/28/20 02:53 Creatinine 1.4 mg/dL (0.6-1.2) H 04/28/20 02:53 Estimated GFR 38 ml/min 04/28/20 02:53 BUN/Creatinine Ratio 16 % 04/28/20 02:53 Glucose 251 mg/dL (65-100) H 04/28/20 02:53 POC Glucose 148 mg/dL (70-105) H 04/28/20 07:36 Hemoglobin A1c 9.2 % (4-6) H 04/28/20 06:01 Calcium 11.9 mg/dL (8.4-10.2) H 04/28/20 02:53 Total Bilirubin 0.40 mg/dL (0.1-1.2) 04/28/20 02:53 AST 10 units/L (5-40) 04/28/20 02:53 ALT 11 units/L (7-56) 04/28/20 02:53 Alkaline Phosphatase 66 units/L (35-129) 04/28/20 02:53 Troponin T < 0.010 ng/mL (0.00-0.029) 04/28/20 08:51 Total Protein 6.1 g/dL (6.3-8.2) L 04/28/20 02:53 Albumin 3.5 g/dL (3.9-5) L 04/28/20 02:53 Albumin/Globulin Ratio 1.3 % 04/28/20 02:53 Col[place]/IV: Voiding Method Toilet Active Medications - Current Medications Current Medications: Generic Name Dose Route Start Last Admin Trade Name Freq PRN Reason Stop Dose Admin Aspirin 81 mg 04/28/20 10:00 Aspirin Ec 81 Mg Tab PO QDAY [facility] Atorvastatin Calcium 40 mg 04/28/20 22:00 Atorvastatin 40 Mg Tab PO QHS [facility] Dabigatran 150 mg 04/28/20 10:00 Dabigatran 150 Mg Cap PO BID [facility] Protocol Insulin Human Lispro 0 unit 04/28/20 07:30 04/28/20 09:12 Insulin Lispro 100 Unit/Ml SUB-Q Not Given ACHS [facility] Protocol Metformin HCl 500 mg 04/28/20 08:00 04/28/20 09:13 Metformin 500 Mg Tab PO Not Given BIDDIAB [facility] Ondansetron HCl 4 mg 04/28/20 05:40 Ondansetron 4 Mg/2 Ml Inj IV Q4H PRN Nausea And Vomiting Tramadol HCl 50 mg 04/28/20 05:40 Tramadol 50 Mg Tab PO Q4H PRN Pain, Moderate (4-6) Trazodone HCl 50 mg 04/28/20 22:00 Trazodone 50 Mg Tab PO QHS [facility]
[2020-04-28] MEDS: ASPIRIN EC 81 MG TAB PO SCH (13:25)
[2020-04-28] MEDS: DABIGATRAN 150 MG CAP PO SCH ×2 (13:25→21:41)
[2020-04-28 17:26] LABS: Osmolality,Urine 569 Mosm/kg
--- NOTE | 2020-04-28 19:25 | Consultation ---
History of Present Illness Consult date: 04/28/20 Requesting physician: SANIYA LENZ Consult reason: chest pain History of present illness: Pt is a 64-year-old AA female, recently seen by our group during a previous hospitalization for COVID-19 PNA at the end of March 2020, who now presents with complaints of chest pain. Pt reports progressively worsening suprasternal pressure x 1 day prior to arrival. Pain is non-radiating. Associated with nausea, no vomiting. Sx relieved by rest. Trop neg x 2. ECG reveals no acute ischemic changes. CXR reveals no acute findings, interval improvement in bilateral infiltrates from previous CXR 04/17/20. HEART Score: 5 Past History Past Medical History: CAD, diabetes, hypertension, hyperlipidemia Past Surgical History: PTCA Social history: denies: smoking, alcohol abuse Medications and Allergies Allergies Allergy/AdvReac Type Severity Reaction Status Date / Time Iodine and Iodide Containing Allergy Rash Verified 04/28/20 01:40 Produc shellfish derived Allergy Swelling Verified 04/14/20 15:11 strawberry Allergy Swelling Verified 04/14/20 15:11 iodine AdvReac Mild Rash Uncoded 04/28/20 01:40 Home Medications Medication Instructions Recorded Confirmed Last Taken Type Aspirin [Aspirin BABY CHEW TAB] 81 mg PO DAILY 04/15/20 04/28/20 1 Day Ago History ~04/27/20 Atorvastatin Calcium [Lipitor] 80 mg PO DAILY 04/15/20 04/28/20 1 Day Ago History ~04/27/20 Dabigatran Etexilate Mesylate 150 mg PO BID 04/15/20 04/28/20 1 Day Ago History [Pradaxa] ~04/27/20 Metformin HCl [metFORMIN] 1,000 mg PO BID 04/15/20 04/28/20 1 Day Ago History ~04/27/20 Potassium Chloride [K-Dur] 10 meq PO QDAY 04/15/20 04/28/20 1 Day Ago History ~04/27/20 glipiZIDE [Glucotrol] 10 mg PO BID 04/15/20 04/28/20 1 Day Ago History ~04/27/20 Atenolol 50 mg PO DAILY #90 tab 04/20/20 04/28/20 1 Day Ago Rx ~04/27/20 ISOSORBIDE MONOnitrate [Imdur ER] 30 mg PO DAILY #90 tab 04/20/20 04/28/20 1 Day Ago Rx ~04/27/20 hydroCHLOROthiazide 12.5 mg PO DAILY #90 cap 04/20/20 04/28/20 1 Day Ago Rx [Hydrochlorothiazide] ~04/27/20 lisinopriL [Zestril TAB] 40 mg PO QDAY #90 tab 04/20/20 04/28/20 1 Day Ago Rx ~04/27/20 Active Meds: Active Medications Aspirin (Aspirin Ec 81 Mg Tab) 81 mg PO QDAY [facility] Last Admin: 04/28/20 13:25 Dose: 81 mg Documented by: Atorvastatin Calcium (Atorvastatin 40 Mg Tab) 40 mg PO QHS [facility] Dabigatran (Dabigatran 150 Mg Cap) 150 mg PO BID [facility]; Protocol Last Admin: 04/28/20 13:25 Dose: 150 mg Documented by: Insulin Human Lispro (Insulin Lispro 100 Unit/Ml) 0 unit SUB-Q ACHS [facility]; Protocol Last Admin: 04/28/20 16:48 Dose: Not Given Documented by: Metformin HCl (Metformin 500 Mg Tab) 500 mg PO BIDDIAB [facility] Last Admin: 04/28/20 16:48 Dose: 500 mg Documented by: Ondansetron HCl (Ondansetron 4 Mg/2 Ml Inj) 4 mg IV Q4H PRN PRN Reason: Nausea And Vomiting Tramadol HCl (Tramadol 50 Mg Tab) 50 mg PO Q4H PRN PRN Reason: Pain, Moderate (4-6) Trazodone HCl (Trazodone 50 Mg Tab) 50 mg PO QHS [facility] Review of Systems Constitutional: no fever, no chills, no sweats Ears, nose, mouth and throat: no nasal congestion, no sore throat Cardiovascular: chest pain, no orthopnea, no palpitations, no edema, no syncope, no lightheadedness, no shortness of breath, no dyspnea on exertion, no claudication Respiratory: no cough, no shortness of breath Gastrointestinal: nausea, no abdominal pain, no vomiting, no diarrhea, no constipation Genitourinary Female: no pelvic pain, no flank pain, no dysuria Musculoskeletal: no neck stiffness, no neck pain, no myalgias Integumentary: no rash, no wounds Neurological: no head injury, no paralysis, no weakness, no parathesias, no numbness, no tingling, no seizures, no syncope, no vertigo, no headaches Endocrine: no cold intolerance, no heat intolerance Hematologic/Lymphatic: no easy bruising, no easy bleeding Allergic/Immunologic: no anaphylaxis Physical Examination Last Vital Signs Temp 98.5 F 04/28/20 17:40 Pulse 72 04/28/20 17:40 Resp 18 04/28/20 17:40 BP 167/86 04/28/20 17:40 Pulse Ox 95 04/28/20 17:40 Results 04/28/20 02:53 04/29/20 06:48 Cardiac Enzymes 04/28/20 04/28/20 04/28/20 Range/Units 02:53 02:53 02:53 WBC 7.2 (4.5-11.0) K/mm3 RBC 3.85 (3.65-5.03) M/mm3 Hgb 11.7 (10.1-14.3) gm/dl Hct 34.5 (30.3-42.9) % MCV 90 (79-97) fl MCH 31 (28-32) pg MCHC 34 (30-34) % RDW 13.7 (13.2-15.2) % Plt Count 285 (140-440) K/mm3 Lymph % (Auto) 21.9 (13.4-35.0) % [place] % (Auto) 6.9 (0.0-7.3) % Eos % (Auto) 1.1 (0.0-4.3) % Baso % (Auto) 0.7 (0.0-1.8) % Lymph # (Auto) 1.6 (1.2-5.4) K/mm3 [place] # (Auto) 0.5 (0.0-0.8) K/mm3 Eos # (Auto) 0.1 (0.0-0.4) K/mm3 Baso # (Auto) 0.1 (0.0-0.1) K/mm3 Seg Neutrophils % 69.4 (40.0-70.0) % Seg Neutrophils # 5.0 (1.8-7.7) K/mm3 Sodium 139 (137-145) mmol/L Potassium 4.2 (3.6-5.0) mmol/L Chloride 102.5 (98-107) mmol/L Carbon Dioxide 24 (22-30) mmol/L Anion Gap 17 mmol/L BUN 22 H (7-17) mg/dL Creatinine 1.4 H (0.6-1.2) mg/dL Estimated GFR 38 ml/min BUN/Creatinine Ratio 16 % Glucose 251 H (65-100) mg/dL POC Glucose (70-105) mg/dL Hemoglobin A1c (4-6) % Calcium 11.9 H (8.4-10.2) mg/dL Total Bilirubin 0.40 (0.1-1.2) mg/dL AST 10 (5-40) units/L ALT 11 (7-56) units/L Alkaline Phosphatase 66 (35-129) units/L Troponin T < 0.010 (0.00-0.029) ng/mL Total Protein 6.1 L (6.3-8.2) g/dL Albumin 3.5 L (3.9-5) g/dL Albumin/Globulin Ratio 1.3 % Urine Osmolality Mosm/kg Urine Sodium mmol/L 04/28/20 04/28/20 04/28/20 Range/Units 06:01 07:36 08:51 WBC (4.5-11.0) K/mm3 RBC (3.65-5.03) M/mm3 Hgb (10.1-14.3) gm/dl Hct (30.3-42.9) % MCV (79-97) fl MCH (28-32) pg MCHC (30-34) % RDW (13.2-15.2) % Plt Count (140-440) K/mm3 Lymph % (Auto) (13.4-35.0) % Williamson % (Auto) (0.0-7.3) % Eos % (Auto) (0.0-4.3) % Baso % (Auto) (0.0-1.8) % Lymph # (Auto) (1.2-5.4) K/mm3 [place] # (Auto) (0.0-0.8) K/mm3 Eos # (Auto) (0.0-0.4) K/mm3 Baso # (Auto) (0.0-0.1) K/mm3 Seg Neutrophils % (40.0-70.0) % Seg Neutrophils # (1.8-7.7) K/mm3 Sodium (137-145) mmol/L Potassium (3.6-5.0) mmol/L Chloride (98-107) mmol/L Carbon Dioxide (22-30) mmol/L Anion Gap mmol/L BUN (7-17) mg/dL Creatinine (0.6-1.2) mg/dL Estimated GFR ml/min BUN/Creatinine Ratio % Glucose (65-100) mg/dL POC Glucose 148 H (70-105) mg/dL Hemoglobin A1c 9.2 H (4-6) % Calcium (8.4-10.2) mg/dL Total Bilirubin (0.1-1.2) mg/dL AST (5-40) units/L ALT (7-56) units/L Alkaline Phosphatase (35-129) units/L Troponin T < 0.010 (0.00-0.029) ng/mL Total Protein (6.3-8.2) g/dL Albumin (3.9-5) g/dL Albumin/Globulin Ratio % Urine Osmolality Mosm/kg Urine Sodium mmol/L 04/28/20 04/28/20 04/28/20 Range/Units 11:57 16:06 16:44 WBC (4.5-11.0) K/mm3 RBC (3.65-5.03) M/mm3 Hgb (10.1-14.3) gm/dl Hct (30.3-42.9) % MCV (79-97) fl MCH (28-32) pg MCHC (30-34) % RDW (13.2-15.2) % Plt Count (140-440) K/mm3 Lymph % (Auto) (13.4-35.0) % Williamson % (Auto) (0.0-7.3) % Eos % (Auto) (0.0-4.3) % Baso % (Auto) (0.0-1.8) % Lymph # (Auto) (1.2-5.4) K/mm3 [place] # (Auto) (0.0-0.8) K/mm3 Eos # (Auto) (0.0-0.4) K/mm3 Baso # (Auto) (0.0-0.1) K/mm3 Seg Neutrophils % (40.0-70.0) % Seg Neutrophils # (1.8-7.7) K/mm3 Sodium (137-145) mmol/L Potassium (3.6-5.0) mmol/L Chloride (98-107) mmol/L Carbon Dioxide (22-30) mmol/L Anion Gap mmol/L BUN (7-17) mg/dL Creatinine (0.6-1.2) mg/dL Estimated GFR ml/min BUN/Creatinine Ratio % Glucose (65-100) mg/dL POC Glucose 89 133 H (70-105) mg/dL Hemoglobin A1c (4-6) % Calcium (8.4-10.2) mg/dL Total Bilirubin (0.1-1.2) mg/dL AST (5-40) units/L ALT (7-56) units/L Alkaline Phosphatase (35-129) units/L Troponin T (0.00-0.029) ng/mL Total Protein (6.3-8.2) g/dL Albumin (3.9-5) g/dL Albumin/Globulin Ratio % Urine Osmolality 569 Mosm/kg Urine Sodium 74 mmol/L CBC 04/28/20 Range/Units 02:53 WBC 7.2 (4.5-11.0) K/mm3 RBC 3.85 (3.65-5.03) M/mm3 Hgb 11.7 (10.1-14.3) gm/dl Hct 34.5 (30.3-42.9) % Plt Count 285 (140-440) K/mm3 Lymph # (Auto) 1.6 (1.2-5.4) K/mm3 [place] # (Auto) 0.5 (0.0-0.8) K/mm3 Eos # (Auto) 0.1 (0.0-0.4) K/mm3 Baso # (Auto) 0.1 (0.0-0.1) K/mm3 Comprehensive Metabolic Panel 04/28/20 Range/Units 02:53 Sodium 139 (137-145) mmol/L Potassium 4.2 (3.6-5.0) mmol/L Chloride 102.5 (98-107) mmol/L Carbon Dioxide 24 (22-30) mmol/L BUN 22 H (7-17) mg/dL Creatinine 1.4 H (0.6-1.2) mg/dL Glucose 251 H (65-100) mg/dL Calcium 11.9 H (8.4-10.2) mg/dL AST 10 (5-40) units/L ALT 11 (7-56) units/L Alkaline Phosphatase 66 (35-129) units/L Total Protein 6.1 L (6.3-8.2) g/dL Albumin 3.5 L (3.9-5) g/dL - Imaging and Cardiology Echo: report reviewed (04/16/2020 - EF 55-60%, diastolic dysfxn noted) EKG: report reviewed, image reviewed - EKG Interpretation EKG: no acute changes EKG interpretations - EKG Sinus rhythms and dysrhythmias: sinus rhythm Repolarization changes or abnormalities: nonspecific abnormality, ST segment, and/or T wave Assessment and Plan Repeat COVID-19 pending. Recommend gentle IVFs. Continue ASA & statin. Will optimize antihypertensive regimen. Plan for ischemic eval on Thursday. Case reviewed in conjunction with Dr. Han, who agrees with the assessment and plan of care. - Patient Problems (1) Chest pain Current Visit: Yes Status: Acute Qualifiers: Qualified Code(s): R07.9 - Chest pain, unspecified (2) FRANSICO (acute kidney injury) Current Visit: Yes Status: Acute (3) CAD (coronary artery disease) Current Visit: Yes Status: Chronic Qualifiers: Coronary Disease-Associated Artery/Lesion type: [place] artery [place] vs. transplanted heart: [place] heart Qualified Code(s): I25.119 - Atherosclerotic heart disease of [place] coronary artery with unspecified angina pectoris (4) Stented coronary artery Current Visit: Yes Status: Chronic (5) HTN (hypertension) Current Visit: Yes Status: Chronic Qualifiers: Hypertension type: essential hypertension Qualified Code(s): I10 - Essential (primary) hypertension (6) HLD (hyperlipidemia) Current Visit: Yes Status: Chronic Qualifiers: Hyperlipidemia type: mixed hyperlipidemia Qualified Code(s): E78.2 - Mixed hyperlipidemia (7) DM2 (diabetes mellitus, type 2) Current Visit: Yes Status: Chronic (8) History of CVA (cerebrovascular accident) Current Visit: Yes Status: Chronic (9) GERD (gastroesophageal reflux disease) Current Visit: Yes Status: Suspected
[2020-04-28] MEDS ORDERED: SODIUM CHLORIDE 0.9% 500 ML 500 ML IV SCH (21:00)
[2020-04-28] MEDS ORDERED: SODIUM CHLORIDE 0.9% 1000 ML 1,000 ML IV SCH (21:00)
[2020-04-28] MEDS: METOPROLOL TARTRATE 25 MG TAB PO SCH (21:41)
[2020-04-28] MEDS: traZODone 50 MG TAB PO SCH (21:41)
[2020-04-29] MEDS: INSULIN LISPRO 100 UNIT/ML SUB-Q SCH ×4 (08:00→21:49)
[2020-04-29 08:20] LABS: Calcium 10.8 mg/dL (8.4-10.2)
--- NOTE | 2020-04-29 09:42 | Progress Note ---
Assessment and Plan Assessment and plan: Pt is a 64-year-old AA female recently hospitalized for COVID-19 PNA at the end of March 2020, who now presented with complaints of chest pain. Pt reports progressively worsening suprasternal pressure x 1 day prior to arrival. Pain is non-radiating. Associated with nausea, no vomiting. Sx relieved by rest. The patient was admitted with diagnosis of chest pain and acute kidney injury. The patient had a Trop neg x 2. ECG revealed no acute ischemic changes. CXR revealed no acute findings, interval improvement in bilateral infiltrates from previous CXR 04/17/20. Chest pain. Acute kidney injury. COVID pneumonia/infection. Pt with recent COVID dx on 04/15 with previous hospitalization. Diabetes mellitus type 2 Obesity DVT prophylaxis. 04/28/2020. Recheck COVID testing to determine COVID isolation. Pt. s/p dexamethasone and remdesivir treatment on last hospitalization. CXR negative. ECHO on previous hospitalization EF 55-60%, diastolic dysfunction. Await cardiology recommendations. 04/29/2020. Patient currently without chest pain. Trop neg x 2. ECG reveals no acute ischemic changes. CXR reveals no acute findings, interval improvement in bilateral infiltrates from previous CXR 04/17/20. Ischemic evaluation on Thursday. Continue aspirin and statin. Continue antihypertensive medications. History Interval history: No new issues overnight. Hospitalist Physical - Constitutional Vitals: Temp Pulse Resp BP Pulse Ox 98.7 F 69 18 104/70 96 04/28/20 20:25 04/28/20 21:41 04/28/20 20:25 04/28/20 21:41 04/28/20 20:25 General appearance: Present: no acute distress, well-nourished - EENT Eyes: Present: PERRL, EOM intact ENT: hearing intact, clear oral mucosa, dentition normal - Neck Neck: Present: supple, normal ROM - Respiratory Respiratory effort: normal Respiratory: bilateral: CTA - Cardiovascular Rhythm: regular Heart Sounds: Present: S1 & S2. Absent: gallop, rub - Extremities Extremities: no ischemia, No edema, Full ROM - Abdominal General gastrointestinal: soft, non-tender, non-distended, normal bowel sounds - Integumentary Integumentary: Present: clear, warm, dry - Neurologic Neurologic: CNII-XII intact, moves all extremities HEART Score - HEART Score EKG: Non-specific Age: 45-65 Risk factors: > 3 risk factors or hx of atherosclerotic disease Troponin: Troponin T < 0.010 ng/mL (0.00-0.029) 04/28/20 08:51 Troponin: < normal limit Results - Labs CBC & Chem 7: 04/28/20 02:53 04/29/20 06:48 Labs: Laboratory Last Values WBC 7.2 K/mm3 (4.5-11.0) 04/28/20 02:53 RBC 3.85 M/mm3 (3.65-5.03) 04/28/20 02:53 Hgb 11.7 gm/dl (10.1-14.3) 04/28/20 02:53 Hct 34.5 % (30.3-42.9) 04/28/20 02:53 MCV 90 fl (79-97) 04/28/20 02:53 MCH 31 pg (28-32) 04/28/20 02:53 MCHC 34 % (30-34) 04/28/20 02:53 RDW 13.7 % (13.2-15.2) 04/28/20 02:53 Plt Count 285 K/mm3 (140-440) 04/28/20 02:53 Lymph % (Auto) 21.9 % (13.4-35.0) 04/28/20 02:53 [place] % (Auto) 6.9 % (0.0-7.3) 04/28/20 02:53 Eos % (Auto) 1.1 % (0.0-4.3) 04/28/20 02:53 Baso % (Auto) 0.7 % (0.0-1.8) 04/28/20 02:53 Lymph # (Auto) 1.6 K/mm3 (1.2-5.4) 04/28/20 02:53 [place] # (Auto) 0.5 K/mm3 (0.0-0.8) 04/28/20 02:53 Eos # (Auto) 0.1 K/mm3 (0.0-0.4) 04/28/20 02:53 Baso # (Auto) 0.1 K/mm3 (0.0-0.1) 04/28/20 02:53 Seg Neutrophils % 69.4 % (40.0-70.0) 04/28/20 02:53 Seg Neutrophils # 5.0 K/mm3 (1.8-7.7) 04/28/20 02:53 Sodium 138 mmol/L (137-145) 04/29/20 06:48 Potassium 4.2 mmol/L (3.6-5.0) 04/29/20 06:48 Chloride 106.0 mmol/L (98-107) 04/29/20 06:48 Carbon Dioxide 28 mmol/L (22-30) 04/29/20 06:48 Anion Gap 8 mmol/L 04/29/20 06:48 BUN 19 mg/dL (7-17) H 04/29/20 06:48 Creatinine 1.3 mg/dL (0.6-1.2) H 04/29/20 06:48 Estimated GFR 41 ml/min 04/29/20 06:48 BUN/Creatinine Ratio 15 % 04/29/20 06:48 Glucose 150 mg/dL (65-100) H 04/29/20 06:48 POC Glucose 130 mg/dL (70-105) H 04/29/20 07:33 Hemoglobin A1c 9.2 % (4-6) H 04/28/20 06:01 Calcium 10.8 mg/dL (8.4-10.2) H 04/29/20 06:48 Total Bilirubin 0.40 mg/dL (0.1-1.2) 04/28/20 02:53 AST 10 units/L (5-40) 04/28/20 02:53 ALT 11 units/L (7-56) 04/28/20 02:53 Alkaline Phosphatase 66 units/L (35-129) 04/28/20 02:53 Troponin T < 0.010 ng/mL (0.00-0.029) 04/28/20 08:51 Total Protein 6.1 g/dL (6.3-8.2) L 04/28/20 02:53 Albumin 3.5 g/dL (3.9-5) L 04/28/20 02:53 Albumin/Globulin Ratio 1.3 % 04/28/20 02:53 Urine Osmolality 569 Mosm/kg 04/28/20 16:06 Urine Sodium 74 mmol/L 04/28/20 16:06 Col[place]/IV: Voiding Method Toilet Active Medications - Current Medications Current Medications: Generic Name Dose Route Start Last Admin Trade Name Freq PRN Reason Stop Dose Admin Aspirin 81 mg 04/28/20 10:00 04/28/20 13:25 Aspirin Ec 81 Mg Tab PO 81 mg QDAY [facility] Administration Atorvastatin Calcium 40 mg 04/28/20 22:00 04/28/20 21:41 Atorvastatin 40 Mg Tab PO 40 mg QHS [facility] Administration Dabigatran 150 mg 04/28/20 10:00 04/28/20 21:41 Dabigatran 150 Mg Cap PO 150 mg BID [facility] Administration Protocol Sodium Chloride 500 mls @ 50 mls/hr 04/28/20 21:00 Nacl 0.9% 500 Ml IV DIRECT [facility] Insulin Human Lispro 0 unit 04/28/20 07:30 04/28/20 21:42 Insulin Lispro 100 Unit/Ml SUB-Q 2 unit ACHS [facility] Administration Protocol Isosorbide Mononitrate 30 mg 04/29/20 10:00 Isosorbide Mononitrate Er 30 Mg Tab PO QDAY [facility] Metformin HCl 500 mg 04/28/20 08:00 04/28/20 16:48 Metformin 500 Mg Tab PO 500 mg BIDDIAB [facility] Administration Metoprolol Tartrate 12.5 mg 04/28/20 22:00 04/28/20 21:41 Metoprolol Tartrate 25 Mg Tab PO 12.5 mg BID [facility] Administration Ondansetron HCl 4 mg 04/28/20 05:40 Ondansetron 4 Mg/2 Ml Inj IV Q4H PRN Nausea And Vomiting Tramadol HCl 50 mg 04/28/20 05:40 Tramadol 50 Mg Tab PO Q4H PRN Pain, Moderate (4-6) Trazodone HCl 50 mg 04/28/20 22:00 04/28/20 21:41 Trazodone 50 Mg Tab PO 50 mg QHS [facility] Administration
--- NOTE | 2020-04-29 11:39 | Progress Note ---
Assessment and Plan Repeat COVID-19 pending. Plan for Lexiscan stress MPI in AM if COVID-neg. NPO after midnight. Continue ASA & statin. Will optimize antihypertensive regimen as needed. Continue gentle IVFs. Monitor renal indices. Will also check UA. Case reviewed in conjunction with Dr. Han, who agrees with the assessment and plan of care. - Patient Problems (1) Chest pain Current Visit: Yes Status: Acute Qualifiers: Qualified Code(s): R07.9 - Chest pain, unspecified (2) FRANSICO (acute kidney injury) Current Visit: Yes Status: Acute (3) CAD (coronary artery disease) Current Visit: Yes Status: Chronic Qualifiers: Coronary Disease-Associated Artery/Lesion type: [place] artery [place] vs. transplanted heart: [place] heart Qualified Code(s): I25.119 - Atherosclerotic heart disease of [place] coronary artery with unspecified angina pectoris (4) Stented coronary artery Current Visit: Yes Status: Chronic (5) HTN (hypertension) Current Visit: Yes Status: Chronic Qualifiers: Hypertension type: essential hypertension Qualified Code(s): I10 - Essential (primary) hypertension (6) HLD (hyperlipidemia) Current Visit: Yes Status: Chronic Qualifiers: Hyperlipidemia type: mixed hyperlipidemia Qualified Code(s): E78.2 - Mixed hyperlipidemia (7) DM2 (diabetes mellitus, type 2) Current Visit: Yes Status: Chronic (8) History of CVA (cerebrovascular accident) Current Visit: Yes Status: Chronic (9) GERD (gastroesophageal reflux disease) Current Visit: Yes Status: Suspected Subjective Date of service: 04/29/20 Principal diagnosis: Chest Pain, FRANSICO Interval history: Resting comfortably in bed upon exam. No chest pain this AM. C/o pain in bladder and difficulty urinating. Tele reviewed - SR 70s, no events. Objective Last Vital Signs Temp 98.6 F 04/29/20 08:29 Pulse 67 04/29/20 08:29 Resp 18 04/29/20 08:29 BP 178/86 04/29/20 08:29 Pulse Ox 95 04/29/20 08:29 - Physical Examination General: No Apparent Distress HEENT: Positive: EOMI, Normocephaly, Mucus Membranes Moist Neck: Positive: neck supple, trachea midline Cardiac: Positive: Reg Rate and Rhythm, S1/S2 Lungs: Positive: clear to auscultation Neuro: Positive: Grossly Intact Abdomen: Positive: Soft. Negative: Tender Skin: Negative: Rash Musculoskeletal: No Pain Extremities: Absent: edema - Labs and Meds Comprehensive Metabolic Panel 04/29/20 Range/Units 06:48 Sodium 138 (137-145) mmol/L Potassium 4.2 (3.6-5.0) mmol/L Chloride 106.0 (98-107) mmol/L Carbon Dioxide 28 (22-30) mmol/L BUN 19 H (7-17) mg/dL Creatinine 1.3 H (0.6-1.2) mg/dL Glucose 150 H (65-100) mg/dL Calcium 10.8 H (8.4-10.2) mg/dL - Imaging and Cardiology EKG: report reviewed, image reviewed Pharmacologic stress test: pending Echo: report reviewed (04/16/2020 - EF 55-60%, diastolic dysfxn noted) - Telemetry EKG Rhythm: Sinus Rhythm - EKG Sinus rhythms and dysrhythmias: sinus rhythm Repolarization changes or abnormalities: nonspecific abnormality, ST segment, and/or T wave
[2020-04-29] MEDS: DABIGATRAN 150 MG CAP PO SCH ×2 (12:43→21:48)
[2020-04-29] MEDS: ASPIRIN EC 81 MG TAB PO SCH (12:43)
[2020-04-29] MEDS: metFORMIN 500 MG TAB PO SCH ×2 (12:43→16:42)
[2020-04-29] MEDS: METOPROLOL TARTRATE 25 MG TAB PO SCH ×2 (12:50→21:48)
[2020-04-29 14:54] LABS: Bacteria,Urine 1+ /HPF (Negative); Bilirubin,Urine NEG (Negative); Blood,Urine NEG (Negative); Color,Urine Yellow (Yellow); Mucus,Urine FEW /HPF; Protein,Urine <15 mg/dL mg/dL (Negative); Urobilinogen,Urine < 2.0 mg/dL (<2.0)
[2020-04-29] MEDS: traZODone 50 MG TAB PO SCH (21:49)
[2020-04-30 08:28] LABS: Calcium 10.3 mg/dL (8.4-10.2)
[2020-04-30] MEDS: INSULIN LISPRO 100 UNIT/ML SUB-Q SCH ×4 (08:44→21:05)
--- NOTE | 2020-04-30 08:52 | Progress Note ---
Assessment and Plan Assessment and plan: Pt is a 64-year-old AA female recently hospitalized for COVID-19 PNA at the end of March 2020, who now presented with complaints of chest pain. Pt reports progressively worsening suprasternal pressure x 1 day prior to arrival. Pain is non-radiating. Associated with nausea, no vomiting. Sx relieved by rest. The patient was admitted with diagnosis of chest pain and acute kidney injury. The patient had a Trop neg x 2. ECG revealed no acute ischemic changes. CXR revealed no acute findings, interval improvement in bilateral infiltrates from previous CXR 04/17/20. Chest pain. Acute kidney injury. COVID pneumonia/infection. Pt with recent COVID dx on 04/15 with previous hospitalization. Diabetes mellitus type 2 Obesity DVT prophylaxis. 04/28/2020. Recheck COVID testing to determine COVID isolation. Pt. s/p dexamethasone and remdesivir treatment on last hospitalization. CXR negative. ECHO on previous hospitalization EF 55-60%, diastolic dysfunction. Await cardiology recommendations. 04/29/2020. Patient currently without chest pain. Trop neg x 2. ECG reveals no acute ischemic changes. CXR reveals no acute findings, interval improvement in bilateral infiltrates from previous CXR 04/17/20. Ischemic evaluation on Thursday. Continue aspirin and statin. Continue antihypertensive medications. 04/30/2020. Patient denies chest pain currently. Repeat Covid test positive. Continue aspirin and statin. ? Stress test today given positive Covid test. Continue supportive care for now. History Interval history: No new issues overnight. Hospitalist Physical - Constitutional Vitals: Temp Pulse Resp BP Pulse Ox 98.7 F 71 16 125/73 93 04/30/20 04:53 04/30/20 04:53 04/30/20 04:53 04/30/20 04:53 04/30/20 04:53 General appearance: Present: no acute distress, well-nourished - EENT Eyes: Present: PERRL, EOM intact ENT: hearing intact, clear oral mucosa, dentition normal - Neck Neck: Present: supple, normal ROM - Respiratory Respiratory effort: normal Respiratory: bilateral: CTA - Cardiovascular Rhythm: regular Heart Sounds: Present: S1 & S2. Absent: gallop, rub - Extremities Extremities: no ischemia, No edema, Full ROM - Abdominal General gastrointestinal: soft, non-tender, non-distended, normal bowel sounds - Integumentary Integumentary: Present: clear, warm, dry - Neurologic Neurologic: CNII-XII intact, moves all extremities HEART Score - HEART Score EKG: Non-specific Age: 45-65 Risk factors: > 3 risk factors or hx of atherosclerotic disease Troponin: Troponin T < 0.010 ng/mL (0.00-0.029) 04/28/20 08:51 Troponin: < normal limit Results - Labs CBC & Chem 7: 04/28/20 02:53 04/30/20 06:49 Labs: Laboratory Last Values WBC 7.2 K/mm3 (4.5-11.0) 04/28/20 02:53 RBC 3.85 M/mm3 (3.65-5.03) 04/28/20 02:53 Hgb 11.7 gm/dl (10.1-14.3) 04/28/20 02:53 Hct 34.5 % (30.3-42.9) 04/28/20 02:53 MCV 90 fl (79-97) 04/28/20 02:53 MCH 31 pg (28-32) 04/28/20 02:53 MCHC 34 % (30-34) 04/28/20 02:53 RDW 13.7 % (13.2-15.2) 04/28/20 02:53 Plt Count 285 K/mm3 (140-440) 04/28/20 02:53 Lymph % (Auto) 21.9 % (13.4-35.0) 04/28/20 02:53 [place] % (Auto) 6.9 % (0.0-7.3) 04/28/20 02:53 Eos % (Auto) 1.1 % (0.0-4.3) 04/28/20 02:53 Baso % (Auto) 0.7 % (0.0-1.8) 04/28/20 02:53 Lymph # (Auto) 1.6 K/mm3 (1.2-5.4) 04/28/20 02:53 [place] # (Auto) 0.5 K/mm3 (0.0-0.8) 04/28/20 02:53 Eos # (Auto) 0.1 K/mm3 (0.0-0.4) 04/28/20 02:53 Baso # (Auto) 0.1 K/mm3 (0.0-0.1) 04/28/20 02:53 Seg Neutrophils % 69.4 % (40.0-70.0) 04/28/20 02:53 Seg Neutrophils # 5.0 K/mm3 (1.8-7.7) 04/28/20 02:53 Sodium 135 mmol/L (137-145) L 04/30/20 06:49 Potassium 3.6 mmol/L (3.6-5.0) 04/30/20 06:49 Chloride 104.0 mmol/L (98-107) 04/30/20 06:49 Carbon Dioxide 27 mmol/L (22-30) 04/30/20 06:49 Anion Gap 8 mmol/L 04/30/20 06:49 BUN 21 mg/dL (7-17) H 04/30/20 06:49 Creatinine 1.3 mg/dL (0.6-1.2) H 04/30/20 06:49 Estimated GFR 41 ml/min 04/30/20 06:49 BUN/Creatinine Ratio 16 % 04/30/20 06:49 Glucose 170 mg/dL (65-100) H 04/30/20 06:49 POC Glucose 148 mg/dL (70-105) H 04/30/20 07:41 Hemoglobin A1c 9.2 % (4-6) H 04/28/20 06:01 Calcium 10.3 mg/dL (8.4-10.2) H 04/30/20 06:49 Total Bilirubin 0.40 mg/dL (0.1-1.2) 04/28/20 02:53 AST 10 units/L (5-40) 04/28/20 02:53 ALT 11 units/L (7-56) 04/28/20 02:53 Alkaline Phosphatase 66 units/L (35-129) 04/28/20 02:53 Troponin T < 0.010 ng/mL (0.00-0.029) 04/28/20 08:51 Total Protein 6.1 g/dL (6.3-8.2) L 04/28/20 02:53 Albumin 3.5 g/dL (3.9-5) L 04/28/20 02:53 Albumin/Globulin Ratio 1.3 % 04/28/20 02:53 Urine Color Yellow (Yellow) 04/29/20 11:45 Urine Turbidity Clear (Clear) 04/29/20 11:45 Urine pH 5.0 (5.0-7.0) 04/29/20 11:45 Ur Specific [place] 1.011 (1.003-1.030) 04/29/20 11:45 Urine Protein <15 mg/dl mg/dL (Negative) 04/29/20 11:45 Urine Glucose (UA) >=500 mg/dL (Negative) 04/29/20 11:45 Urine Ketones Neg mg/dL (Negative) 04/29/20 11:45 Urine Blood Neg (Negative) 04/29/20 11:45 Urine Nitrite Neg (Negative) 04/29/20 11:45 Urine Bilirubin Neg (Negative) 04/29/20 11:45 Urine Urobilinogen < 2.0 mg/dL (<2.0) 04/29/20 11:45 Ur Leukocyte Esterase Sm (Negative) 04/29/20 11:45 Urine WBC (Auto) 14.0 /HPF (0.0-6.0) H 04/29/20 11:45 Urine RBC (Auto) 2.0 /HPF (0.0-6.0) 04/29/20 11:45 U Epithel Cells (Auto) 2.0 /HPF (0-13.0) 04/29/20 11:45 Urine Bacteria (Auto) 1+ /HPF (Negative) 04/29/20 11:45 Urine Mucus Few /HPF 04/29/20 11:45 Urine Osmolality 569 Mosm/kg 04/28/20 16:06 Urine Sodium 74 mmol/L 04/28/20 16:06 Coronavirus (PCR) Positive (Negative) A 04/29/20 09:35 Colindres/IV: Voiding Method Toilet Active Medications - Current Medications Current Medications: Generic Name Dose Route Start Last Admin Trade Name Freq PRN Reason Stop Dose Admin Aspirin 81 mg 04/28/20 10:00 04/29/20 12:43 Aspirin Ec 81 Mg Tab PO 81 mg QDAY DURGA Administration Atorvastatin Calcium 40 mg 04/28/20 22:00 04/29/20 21:49 Atorvastatin 40 Mg Tab PO 40 mg QHS DURGA Administration Dabigatran 150 mg 04/28/20 10:00 04/29/20 21:48 Dabigatran 150 Mg Cap PO 150 mg BID DURGA Administration Protocol Sodium Chloride 500 mls @ 50 mls/hr 04/28/20 21:00 Nacl 0.9% 500 Ml IV DIRECT DURGA Insulin Human Lispro 0 unit 04/28/20 07:30 04/30/20 08:44 Insulin Lispro 100 Unit/Ml SUB-Q Not Given ACHS [facility] Protocol Isosorbide Mononitrate 30 mg 04/29/20 10:00 04/29/20 12:43 Isosorbide Mononitrate Er 30 Mg Tab PO 30 mg QDAY DURGA Administration Metformin HCl 500 mg 04/28/20 08:00 04/29/20 16:42 Metformin 500 Mg Tab PO 500 mg BIDDIAB DURGA Administration Metoprolol Tartrate 12.5 mg 04/28/20 22:00 04/29/20 21:48 Metoprolol Tartrate 25 Mg Tab PO 12.5 mg BID DURGA Administration Ondansetron HCl 4 mg 04/28/20 05:40 Ondansetron 4 Mg/2 Ml Inj IV Q4H PRN Nausea And Vomiting Tramadol HCl 50 mg 04/28/20 05:40 04/29/20 12:44 Tramadol 50 Mg Tab PO 50 mg Q4H PRN Administration Pain, Moderate (4-6) Trazodone HCl 50 mg 04/28/20 22:00 04/29/20 21:49 Trazodone 50 Mg Tab PO 50 mg QHS DURGA Administration
[2020-04-30] MEDS: metFORMIN 500 MG TAB PO SCH ×2 (10:37→17:34)
[2020-04-30] MEDS: METOPROLOL TARTRATE 25 MG TAB PO SCH ×2 (11:06→21:28)
[2020-04-30] MEDS: ASPIRIN EC 81 MG TAB PO SCH (11:06)
[2020-04-30] MEDS: DABIGATRAN 150 MG CAP PO SCH ×2 (11:07→21:28)
--- NOTE | 2020-04-30 11:24 | Progress Note ---
Assessment and Plan Repeat Covid testing is positive. Currently stable cardiac status. CP currently is resolved. AMI ruled out. Stress testing cancelled in setting of active Covid 19 and resolution of chest pain. Continue present cardiac management and recommend out patient stress testing with pt's primary cardiology team at [place]. Nothing further to add from cardiac perspective at this time. Will follow on as needed basis. Case reviewed in conjunction with Dr. Han, who agrees with the assessment and plan of care. - Patient Problems (1) Chest pain Current Visit: Yes Status: Resolved Qualifiers: Qualified Code(s): R07.9 - Chest pain, unspecified (2) FRANSICO (acute kidney injury) Current Visit: Yes Status: Acute (3) CAD (coronary artery disease) Current Visit: Yes Status: Chronic Qualifiers: Coronary Disease-Associated Artery/Lesion type: [place] artery [place] vs. transplanted heart: [place] heart Qualified Code(s): I25.119 - Atherosclerotic heart disease of [place] coronary artery with unspecified angina pectoris (4) Stented coronary artery Current Visit: Yes Status: Chronic (5) HTN (hypertension) Current Visit: Yes Status: Chronic Qualifiers: Hypertension type: essential hypertension Qualified Code(s): I10 - Essential (primary) hypertension (6) HLD (hyperlipidemia) Current Visit: Yes Status: Chronic Qualifiers: Hyperlipidemia type: mixed hyperlipidemia Qualified Code(s): E78.2 - Mixed hyperlipidemia (7) DM2 (diabetes mellitus, type 2) Current Visit: Yes Status: Chronic (8) History of CVA (cerebrovascular accident) Current Visit: Yes Status: Chronic (9) GERD (gastroesophageal reflux disease) Current Visit: Yes Status: Suspected Subjective Date of service: 04/30/20 Principal diagnosis: Chest Pain, FRANSICO Interval history: Pt resting in bed, alert and oriented, on room air. No current cardiac complaints. Telemetry reviewed: Sinus Rhythm HR 66 Objective Last Vital Signs Temp 98.7 F 04/30/20 04:53 Pulse 64 04/30/20 11:06 Resp 16 04/30/20 04:53 BP 140/84 04/30/20 11:06 Pulse Ox 93 04/30/20 04:53 - Physical Examination General: No Apparent Distress HEENT: Positive: PERRL, EOMI, Normocephaly, Mucus Membranes Moist Neck: Positive: neck supple, trachea midline Cardiac: Positive: Reg Rate and Rhythm, S1/S2 Lungs: Positive: Decreased Breath Sounds Neuro: Positive: Grossly Intact Abdomen: Positive: Soft. Negative: Tender Skin: Negative: Rash Musculoskeletal: No Pain Extremities: Absent: edema - Labs and Meds Comprehensive Metabolic Panel 04/30/20 Range/Units 06:49 Sodium 135 L (137-145) mmol/L Potassium 3.6 (3.6-5.0) mmol/L Chloride 104.0 (98-107) mmol/L Carbon Dioxide 27 (22-30) mmol/L BUN 21 H (7-17) mg/dL Creatinine 1.3 H (0.6-1.2) mg/dL Glucose 170 H (65-100) mg/dL Calcium 10.3 H (8.4-10.2) mg/dL - Imaging and Cardiology EKG: report reviewed, image reviewed Echo: report reviewed (04/16/2020 - EF 55-60%, diastolic dysfxn noted) - Telemetry EKG Rhythm: Sinus Rhythm - EKG Sinus rhythms and dysrhythmias: sinus rhythm Repolarization changes or abnormalities: nonspecific abnormality, ST segment, and/or T wave
[2020-04-30] MEDS: traZODone 50 MG TAB PO SCH (21:28)
--- NOTE | 2020-05-01 07:12 | Progress Note ---
Assessment and Plan Assessment and plan: Pt is a 64-year-old AA female recently hospitalized for COVID-19 PNA at the end of March 2020, who now presented with complaints of chest pain. Pt reports progressively worsening suprasternal pressure x 1 day prior to arrival. Pain is non-radiating. Associated with nausea, no vomiting. Sx relieved by rest. The patient was admitted with diagnosis of chest pain and acute kidney injury. The patient had a Trop neg x 2. ECG revealed no acute ischemic changes. CXR revealed no acute findings, interval improvement in bilateral infiltrates from previous CXR 04/17/20. Chest pain. Acute kidney injury. COVID pneumonia/infection. Pt with recent COVID dx on 04/15 with previous hospitalization. Diabetes mellitus type 2 Obesity DVT prophylaxis. 04/28/2020. Recheck COVID testing to determine COVID isolation. Pt. s/p dexamethasone and remdesivir treatment on last hospitalization. CXR negative. ECHO on previous hospitalization EF 55-60%, diastolic dysfunction. Await cardiology recommendations. 04/29/2020. Patient currently without chest pain. Trop neg x 2. ECG reveals no acute ischemic changes. CXR reveals no acute findings, interval improvement in bilateral infiltrates from previous CXR 04/17/20. Ischemic evaluation on Thursday. Continue aspirin and statin. Continue antihypertensive medications. 04/30/2020. Patient denies chest pain currently. Repeat Covid test positive. Continue aspirin and statin. ? Stress test today given positive Covid test. Continue supportive care for now. 05/01/2020; stress test will may not be done because of patient's Covid, cardiology said patient does not have acute ischemia and does not need further work-up here. Cardiology cleared her for discharge. Repeat Covid test is positive. Patient said she has an appointment for repeat Covid test on 05/22 and will see her engineering production liaison on 06/15. Patient is stable for discharge. History Interval history: Patient was seen and evaluated this morning Chest pain resolved Hospitalist Physical - Physical exam Narrative exam: Not in cardiopulmonary distress. The patient appeared well nourished and normally developed. Vital signs as documented. Head exam is unremarkable. No scleral icterus . Neck is without jugular venous distension, thyromegaly, or carotid bruits. Lungs are clear to auscultation. Cardiac exam reveals regular rate and Rhythm. Abdominal exam reveals normal bowel sounds, nontender, no organomegaly. Extremities are nonedematous and both femoral and pedal pulses are normal. CROSSING SUPERVISOR: Alert and oriented 3. No focal weakness. - Constitutional Vitals: Temp Pulse Resp BP Pulse Ox 98.0 F 65 20 152/83 95 05/01/20 05:24 05/01/20 05:24 05/01/20 05:24 05/01/20 05:24 05/01/20 05:24 General appearance: Present: no acute distress, well-nourished HEART Score - HEART Score EKG: Non-specific Age: 45-65 Risk factors: > 3 risk factors or hx of atherosclerotic disease Troponin: Troponin T < 0.010 ng/mL (0.00-0.029) 04/28/20 08:51 Troponin: < normal limit Results - Labs CBC & Chem 7: 04/28/20 02:53 04/30/20 06:49 Labs: Laboratory Last Values WBC 7.2 K/mm3 (4.5-11.0) 04/28/20 02:53 RBC 3.85 M/mm3 (3.65-5.03) 04/28/20 02:53 Hgb 11.7 gm/dl (10.1-14.3) 04/28/20 02:53 Hct 34.5 % (30.3-42.9) 04/28/20 02:53 MCV 90 fl (79-97) 04/28/20 02:53 MCH 31 pg (28-32) 04/28/20 02:53 MCHC 34 % (30-34) 04/28/20 02:53 RDW 13.7 % (13.2-15.2) 04/28/20 02:53 Plt Count 285 K/mm3 (140-440) 04/28/20 02:53 Lymph % (Auto) 21.9 % (13.4-35.0) 04/28/20 02:53 [place] % (Auto) 6.9 % (0.0-7.3) 04/28/20 02:53 Eos % (Auto) 1.1 % (0.0-4.3) 04/28/20 02:53 Baso % (Auto) 0.7 % (0.0-1.8) 04/28/20 02:53 Lymph # (Auto) 1.6 K/mm3 (1.2-5.4) 04/28/20 02:53 [place] # (Auto) 0.5 K/mm3 (0.0-0.8) 04/28/20 02:53 Eos # (Auto) 0.1 K/mm3 (0.0-0.4) 04/28/20 02:53 Baso # (Auto) 0.1 K/mm3 (0.0-0.1) 04/28/20 02:53 Seg Neutrophils % 69.4 % (40.0-70.0) 04/28/20 02:53 Seg Neutrophils # 5.0 K/mm3 (1.8-7.7) 04/28/20 02:53 Sodium 135 mmol/L (137-145) L 04/30/20 06:49 Potassium 3.6 mmol/L (3.6-5.0) 04/30/20 06:49 Chloride 104.0 mmol/L (98-107) 04/30/20 06:49 Carbon Dioxide 27 mmol/L (22-30) 04/30/20 06:49 Anion Gap 8 mmol/L 04/30/20 06:49 BUN 21 mg/dL (7-17) H 04/30/20 06:49 Creatinine 1.3 mg/dL (0.6-1.2) H 04/30/20 06:49 Estimated GFR 41 ml/min 04/30/20 06:49 BUN/Creatinine Ratio 16 % 04/30/20 06:49 Glucose 170 mg/dL (65-100) H 04/30/20 06:49 POC Glucose 146 mg/dL (70-105) H 04/30/20 20:44 Hemoglobin A1c 9.2 % (4-6) H 04/28/20 06:01 Calcium 10.3 mg/dL (8.4-10.2) H 04/30/20 06:49 Total Bilirubin 0.40 mg/dL (0.1-1.2) 04/28/20 02:53 AST 10 units/L (5-40) 04/28/20 02:53 ALT 11 units/L (7-56) 04/28/20 02:53 Alkaline Phosphatase 66 units/L (35-129) 04/28/20 02:53 Troponin T < 0.010 ng/mL (0.00-0.029) 04/28/20 08:51 Total Protein 6.1 g/dL (6.3-8.2) L 04/28/20 02:53 Albumin 3.5 g/dL (3.9-5) L 04/28/20 02:53 Albumin/Globulin Ratio 1.3 % 04/28/20 02:53 Urine Color Yellow (Yellow) 04/29/20 11:45 Urine Turbidity Clear (Clear) 04/29/20 11:45 Urine pH 5.0 (5.0-7.0) 04/29/20 11:45 Ur Specific [place] 1.011 (1.003-1.030) 04/29/20 11:45 Urine Protein <15 mg/dl mg/dL (Negative) 04/29/20 11:45 Urine Glucose (UA) >=500 mg/dL (Negative) 04/29/20 11:45 Urine Ketones Neg mg/dL (Negative) 04/29/20 11:45 Urine Blood Neg (Negative) 04/29/20 11:45 Urine Nitrite Neg (Negative) 04/29/20 11:45 Urine Bilirubin Neg (Negative) 04/29/20 11:45 Urine Urobilinogen < 2.0 mg/dL (<2.0) 04/29/20 11:45 Ur Leukocyte Esterase Sm (Negative) 04/29/20 11:45 Urine WBC (Auto) 14.0 /HPF (0.0-6.0) H 04/29/20 11:45 Urine RBC (Auto) 2.0 /HPF (0.0-6.0) 04/29/20 11:45 U Epithel Cells (Auto) 2.0 /HPF (0-13.0) 04/29/20 11:45 Urine Bacteria (Auto) 1+ /HPF (Negative) 04/29/20 11:45 Urine Mucus Few /HPF 04/29/20 11:45 Urine Osmolality 569 Mosm/kg 04/28/20 16:06 Urine Sodium 74 mmol/L 04/28/20 16:06 Coronavirus (PCR) Positive (Negative) A 04/29/20 09:35 Colindres/IV: Voiding Method Toilet Active Medications - Current Medications Current Medications: Generic Name Dose Route Start Last Admin Trade Name Freq PRN Reason Stop Dose Admin Aspirin 81 mg 04/28/20 10:00 04/30/20 11:06 Aspirin Ec 81 Mg Tab PO 81 mg QDAY DURGA Administration Atorvastatin Calcium 40 mg 04/28/20 22:00 04/30/20 21:28 Atorvastatin 40 Mg Tab PO 40 mg QHS DURGA Administration Dabigatran 150 mg 04/28/20 10:00 04/30/20 21:28 Dabigatran 150 Mg Cap PO 150 mg BID DURGA Administration Protocol Sodium Chloride 500 mls @ 50 mls/hr 04/28/20 21:00 Nacl 0.9% 500 Ml IV DIRECT DURGA Insulin Human Lispro 0 unit 04/28/20 07:30 04/30/20 21:05 Insulin Lispro 100 Unit/Ml SUB-Q Not Given ACHS [facility] Protocol Isosorbide Mononitrate 30 mg 04/29/20 10:00 04/30/20 11:05 Isosorbide Mononitrate Er 30 Mg Tab PO 30 mg QDAY DURGA Administration Metformin HCl 500 mg 04/28/20 08:00 04/30/20 17:34 Metformin 500 Mg Tab PO 500 mg BIDDIAB DURGA Administration Metoprolol Tartrate 12.5 mg 04/28/20 22:00 04/30/20 21:28 Metoprolol Tartrate 25 Mg Tab PO 12.5 mg BID DURGA Administration Ondansetron HCl 4 mg 04/28/20 05:40 Ondansetron 4 Mg/2 Ml Inj IV Q4H PRN Nausea And Vomiting Tramadol HCl 50 mg 04/28/20 05:40 04/29/20 12:44 Tramadol 50 Mg Tab PO 50 mg Q4H PRN Administration Pain, Moderate (4-6) Trazodone HCl 50 mg 04/28/20 22:00 04/30/20 21:28 Trazodone 50 Mg Tab PO 50 mg QHS DURGA Administration
--- NOTE | 2020-05-01 08:30 | Discharge Summary ---
Providers - Providers Date of Admission: 04/28/20 04:46 Date of discharge: 05/01/20 Attending physician: MOSHE MANDUJANO MD 04/28/20 08:07 Consult to Physician [CONS] Routine Comment: Consulting Provider: VANDANA DENNY Physician Instructions: Reason For Exam: cp Hospitalization Reason for admission: Chest pain, COVID-19 infection Condition: Stable Hospital course: Patient is a 64-year-old female that presents emergency room with complaints of chest pain. Patient states that her chest pain started yesterday. Patient states is worsening. Patient states it is a 9 out of 10. Patient states she was brought in by EMS. Patient states to give her a nitro under her tongue. Patient states that she was recently in the hospital for pneumonia and COVID-19. Patient states she was admitted to this hospital. Patient states she was discharged recently. Patient states that she is also having nausea. Patient states that time she is also having acid reflux symptoms. ED work up shows WBC 7.2, hemoglobin 11.7, sodium 139, potassium 4.2, Cr 1.4 glucose 251, troponin 0.016, Chest x-ray Interval improvement Patient seen at bedside in ED. Patient reports chest pain. Pain level 6/10. She reports history CAD. Hospital course Pt is a 64-year-old AA female recently hospitalized for COVID-19 PNA at the end of March 2020, who now presented with complaints of chest pain. Pt reports progressively worsening suprasternal pressure x 1 day prior to arrival. Pain is non-radiating. Associated with nausea, no vomiting. Sx relieved by rest. The patient was admitted with diagnosis of chest pain and acute kidney injury. The patient had a Trop neg x 2. ECG revealed no acute ischemic changes. CXR revealed no acute findings, interval improvement in bilateral infiltrates from previous CXR 04/17/20. Chest pain. Acute kidney injury. COVID pneumonia/infection. Pt with recent COVID dx on 04/15 with previous hospitalization. Diabetes mellitus type 2 Obesity DVT prophylaxis. 04/28/2020. Recheck COVID testing to determine COVID isolation. Pt. s/p dexamethasone and remdesivir treatment on last hospitalization. CXR negative. ECHO on previous hospitalization EF 55-60%, diastolic dysfunction. Await cardiology recommendations. 04/29/2020. Patient currently without chest pain. Trop neg x 2. ECG reveals no acute ischemic changes. CXR reveals no acute findings, interval improvement in bilateral infiltrates from previous CXR 04/17/20. Ischemic evaluation on Thursday. Continue aspirin and statin. Continue antihypertensive medications. 04/30/2020. Patient denies chest pain currently. Repeat Covid test positive. Continue aspirin and statin. ? Stress test today given positive Covid test. Continue supportive care for now. 05/01/2020; stress test will may not be done because of patient's Covid, cardiology said patient does not have acute ischemia and does not need further work-up here. Cardiology cleared her for discharge. Repeat Covid test is positive. Patient said she has an appointment for repeat Covid test on 05/22 and will see her paper sheeter on 06/15. Patient is stable for discharge. Patient is doing well, does not need treatment for Covid because patient does not have any shortness of breath, does not require oxygen. Discussed with [place] physician and is hesitant to make sure her appointments. Patient discharged home in a stable condition. Patient cleared by cardiology for discharge. Disposition: - TO HOME OR SELFCARE Time spent for discharge: 32-minutes - Discharge Diagnoses (1) FRANSICO (acute kidney injury) Status: Acute (2) Chest pain Status: Acute Qualifiers: Qualified Code(s): R07.9 - Chest pain, unspecified (3) Diabetes Status: Acute (4) COVID-19 virus infection Status: Acute Core Measure Documentation - Palliative Care Palliative Care/ Comfort Measures: Not Applicable - Core Measures Any of the following diagnoses?: none Exam - Physical Exam Narrative exam: Not in cardiopulmonary distress. The patient appeared well nourished and normally developed. Vital signs as documented. Head exam is unremarkable. No scleral icterus . Neck is without jugular venous distension, thyromegaly, or carotid bruits. Lungs are clear to auscultation. Cardiac exam reveals regular rate and Rhythm. Abdominal exam reveals normal bowel sounds, nontender, no organomegaly. Extremities are nonedematous and both femoral and pedal pulses are normal. 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 No focal weakness. - Constitutional Vitals: Temp Pulse Resp BP Pulse Ox 98.0 F 65 20 152/83 95 05/01/20 05:24 05/01/20 05:24 05/01/20 05:24 05/01/20 05:24 05/01/20 05:24 Plan Activity: no restrictions Weight Bearing Status: Full Weight Bearing Diet: low salt, diabetic Additional Instructions: Patient scheduled to see her paper sheeter on 06/14. Has an appointment with for Covid test on 05/22 Follow up with: PRISCILLA LOTT [Other] - 3-5 Days Prescriptions: traMADoL [Ultram 50 MG tab] 50 mg PO Q4H PRN #20 tablet PRN Reason: Pain, Moderate (4-6)
[2020-05-01] MEDS: INSULIN LISPRO 100 UNIT/ML SUB-Q SCH (08:45)
[2020-05-01] MEDS: metFORMIN 500 MG TAB PO SCH (08:46)
[2020-05-01] MEDS: DABIGATRAN 150 MG CAP PO SCH (09:32)
[2020-05-01] MEDS: ASPIRIN EC 81 MG TAB PO SCH (09:33)
[2020-05-01] MEDS: METOPROLOL TARTRATE 25 MG TAB PO SCH (09:40)
[2020-05-01 09:42] VITALS: BP 150/78
== END 2020-05-01 10:45 | disposition home or self-care (01) | DRG 682 ==
LOC: ED 01:17 → OBSVTOIN 04:46 → 4A 04:46 → 3A 04-29 15:00
PROVIDERS: ADMIT Internal Medicine Geriatric Medicine; ATTEND Internal Medicine
DX: N17.9 Acute kidney failure, unspecified (principal); U07.1 COVID-19; J12.82 Pneumonia due to coronavirus disease 2019; I25.119 Atherosclerotic heart disease of native coronary artery with unspecified angina pectoris; I10 Essential (primary) hypertension; E11.9 Type 2 diabetes mellitus without complications; K21.9 Gastro-esophageal reflux disease without esophagitis; E78.5 Hyperlipidemia, unspecified; E66.9 Obesity, unspecified; Z68.31 Body mass index [BMI] 31.0-31.9, adult; Z91.041 Radiographic dye allergy status; Z91.013 Allergy to seafood; Z91.018 Allergy to other foods; Z86.73 Personal history of transient ischemic attack (TIA), and cerebral infarction without residual deficits
CPT/HCPCS: 36415; 71045; 76770; 80048; 80053; 81001; 82962; 83036; 83935; 84300; 84484; 85025; 87086; 93005; G0378; A9270-GY; J1815; U0003

== ENCOUNTER 2020-05-07 13:34 | Emergency (ER) | payer OTHER, MEDICARE ==
--- NOTE | 2020-05-07 14:15 | Emergency Department Report ---
Blank Doc - Documentation Documentation: 65-year-old female that presents with right knee pain and swelling. Denies any trauma or injuries. Exam: Right knee warm to touch with decreased/difficulty range of motion. Tachy cardia with temp 99.4. 1- This initial assessment/diagnostic orders/clinical plan/ treatment(s) is/are subject to change based on pt's health status, clinical progression and re- assessment by fellow clinical providers in the ED. Further treatment and workup at subsequent clinical provers discretion. Patient/guardians urged not to elope from ED as their condition may be serious if not clinically assessed and managed. 2-labs 3-x-ray 4-rule out septic joint
[2020-05-07 14:48] LABS: Basophils % (Auto) 0.4 % (0.0-1.8); Eosinophils % (Auto) 0.1 % (0.0-4.3); Hematocrit 32.6 % (30.3-42.9); Hemoglobin 11.1 gm/dl (10.1-14.3); Lymphocytes % (Auto) 12.3 % (13.4-35.0); Mean Corpuscular HGB Conc 34 % (30-34); Mean Corpuscular Volume 90 fl (79-97); Monocytes # (Auto) 0.9 K/mm3 (0.0-0.8); Monocytes % (Auto) 11.5 % (0.0-7.3); Platelet Count 223 K/mm3 (140-440); Red Blood Count 3.61 M/mm3 (3.65-5.03); Red Cell Distribution Width 13.6 % (13.2-15.2)
[2020-05-07 15:11] LABS: Albumin 3.3 g/dL (3.9-5); Calcium 10.9 mg/dL (8.4-10.2)
--- NOTE | 2020-05-07 15:39 | XRay Report ---
RIGHT KNEE 3 VIEWS INDICATION / CLINICAL INFORMATION: right knee pain and swelling. COMPARISON: None available. FINDINGS: Moderate to advanced tricompartmental degenerative change. There may be a joint effusion present. Signer Name: Kit Small MD FACR Signed: 05/07/2020 3:35 PM Workstation Name: [id number]
--- NOTE | 2020-05-07 18:38 | Emergency Department Report ---
HPI - General Chief Complaint: Extremity Injury, Lower Time Seen by Provider: 05/07/20 14:13 - HPI HPI: This is a 65-year-old -[place] female presents to the emergency department from home with a complaint of right knee pain and swelling. The knee pain has been going on for the past 2 to 3 days and worsened this morning. The patient also says that she woke up this morning and found it to be swollen. It worsens with movement and bearing of weight. She says that sometimes she is able to ambulate and other times not because of her symptoms. She has a past medical history of diabetes, hypertension, coronary artery disease with cardiac stents, hyperlipidemia, chronic kidney disease. The patient did not take anything for symptoms prior to presentation today. No recent travel or sick contacts at home. ED Past Medical Hx - Past Medical History Hx Hypertension: Yes Hx CVA: Yes Hx Diabetes: Yes - Surgical History Hx Coronary Stent: Yes - Social History Smoking Status: Never Smoker Substance Use Type: None - Medications Home Medications: Home Medications Medication Instructions Recorded Confirmed Last Taken Type Aspirin [Aspirin BABY CHEW TAB] 81 mg PO DAILY 04/15/20 04/28/20 1 Day Ago History ~04/27/20 Atorvastatin Calcium [Lipitor] 80 mg PO DAILY 04/15/20 04/28/20 1 Day Ago History ~04/27/20 Dabigatran Etexilate Mesylate 150 mg PO BID 04/15/20 04/28/20 1 Day Ago History [Pradaxa] ~04/27/20 Metformin HCl [metFORMIN] 1,000 mg PO BID 04/15/20 04/28/20 1 Day Ago History ~04/27/20 Potassium Chloride [K-Dur] 10 meq PO QDAY 04/15/20 04/28/20 1 Day Ago History ~04/27/20 glipiZIDE [Glucotrol] 10 mg PO BID 04/15/20 04/28/20 1 Day Ago History ~04/27/20 Atenolol 50 mg PO DAILY #90 tab 04/20/20 04/28/20 1 Day Ago Rx ~04/27/20 ISOSORBIDE MONOnitrate [Imdur ER] 30 mg PO DAILY #90 tab 04/20/20 04/28/20 1 Day Ago Rx ~04/27/20 hydroCHLOROthiazide 12.5 mg PO DAILY #90 cap 04/20/20 04/28/20 1 Day Ago Rx [Hydrochlorothiazide] ~04/27/20 lisinopriL [Zestril TAB] 40 mg PO QDAY #90 tab 04/20/20 04/28/20 1 Day Ago Rx ~04/27/20 traMADoL [Ultram 50 MG tab] 50 mg PO Q4H PRN #20 tablet 05/01/20 Unknown Rx ED Review of Systems ROS: Stated complaint: BODY PAIN Other details as noted in HPI Comment: All other systems reviewed and negative Constitutional: denies: chills, fever Eyes: denies: eye pain, vision change ENT: denies: ear pain, throat pain Respiratory: denies: cough, shortness of breath Cardiovascular: denies: chest pain, palpitations Gastrointestinal: denies: abdominal pain, vomiting Genitourinary: denies: dysuria, frequency Musculoskeletal: joint swelling, arthralgia. denies: back pain Skin: denies: rash, lesions Neurological: denies: numbness, paresthesias Physical Exam - Physical Exam Vital Signs: Vital Signs 05/07/20 14:08 Temperature 99.4 F Pulse Rate 102 H Respiratory 18 Rate Blood Pressure 165/100 O2 Sat by Pulse 97 Oximetry Physical Exam: GENERAL: The patient is well-developed well-nourished. HENT: Normocephalic. Atraumatic. Patient has moist mucous membranes. EYES: Extraocular motions are intact. NECK: Supple. Trachea is midline. CHEST/LUNGS: Clear to auscultation. There is no respiratory distress noted. HEART/CARDIOVASCULAR: Regular. There is no tachycardia. There is no murmur. ABDOMEN: Abdomen is soft, nontender. Patient has normal bowel sounds. SKIN: Skin is warm and dry. There is some nonpitting swelling to the anterior and bilateral right knee. 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 No erythema, rash or lesions. NEURO: The patient is awake, alert, and oriented. The patient is cooperative. The patient has no focal neurologic deficits. Normal speech. MUSCULOSKELETAL: There is tenderness to palpation to the anterior and lateral right knee. Negative anterior and posterior drawer test. No laxity with valgus or varus stress of the affected right knee, but any movement of the right knee elicits increased pain. ED Course Vital Signs 05/07/20 14:08 Temperature 99.4 F Pulse Rate 102 H Respiratory 18 Rate Blood Pressure 165/100 O2 Sat by Pulse 97 Oximetry - Consultations Consultation #1: 05/07/20 23:12 After getting the results back of the arthrocentesis showing a septic joint, I contacted Riky at the transfer hub. The patient will be transferred to [facility] and was accepted by Dr. Cason. - Joint Aspiration/Injection Consent Obtained: written consent Time Out Performed: Yes Indications: R/O septic arthritis Side of Body: right Joint Aspirated: knee Ultrasound Guidance: No Skin Prep: other (Alcohol) Local Anesthesia Used: Lidocaine 1% Amount of Anesthesia Used (mls): 6 Needle Size Used: 18G Syringe Size Used: 10cc Fluid Obtained: turbid Total Fluid Obtained (mls): 12 Patient Tolerated Procedure: well Complications: none ED Medical Decision Making - Lab Data Result diagrams: 05/07/20 14:35 05/07/20 14:35 Lab Results 05/07/20 05/07/20 05/07/20 Range/Units 14:35 14:35 14:35 WBC 8.0 (4.5-11.0) K/mm3 RBC 3.61 L (3.65-5.03) M/mm3 Hgb 11.1 (10.1-14.3) gm/dl Hct 32.6 (30.3-42.9) % MCV 90 (79-97) fl MCH 31 (28-32) pg MCHC 34 (30-34) % RDW 13.6 (13.2-15.2) % Plt Count 223 (140-440) K/mm3 Lymph % (Auto) 12.3 L (13.4-35.0) % Ware % (Auto) 11.5 H (0.0-7.3) % Eos % (Auto) 0.1 (0.0-4.3) % Baso % (Auto) 0.4 (0.0-1.8) % Lymph # (Auto) 1.0 L (1.2-5.4) K/mm3 Ware # (Auto) 0.9 H (0.0-0.8) K/mm3 Eos # (Auto) 0.0 (0.0-0.4) K/mm3 Baso # (Auto) 0.0 (0.0-0.1) K/mm3 Seg Neutrophils % 75.7 H (40.0-70.0) % Seg Neutrophils # 6.1 (1.8-7.7) K/mm3 Sodium 137 (137-145) mmol/L Potassium 3.5 L (3.6-5.0) mmol/L Chloride 100.7 (98-107) mmol/L Carbon Dioxide 29 (22-30) mmol/L Anion Gap 11 mmol/L BUN 18 H (7-17) mg/dL Creatinine 1.4 H (0.6-1.2) mg/dL Estimated GFR 38 ml/min BUN/Creatinine Ratio 13 % Glucose 245 H (65-100) mg/dL Lactic Acid 1.40 (0.7-2.0) mmol/L Uric Acid (3.5-7.6) mg/dL Calcium 10.9 H (8.4-10.2) mg/dL Total Bilirubin 0.60 (0.1-1.2) mg/dL AST 8 (5-40) units/L ALT 7 (7-56) units/L Alkaline Phosphatase 79 (35-129) units/L Total Protein 7.5 (6.3-8.2) g/dL Albumin 3.3 L (3.9-5) g/dL Albumin/Globulin Ratio 0.8 % Fluid Type Fluid Color Fluid Appearance Fluid WBC /mm3 Fluid RBC /mm3 Fluid Seg Neutrophils % Fluid Lymphocytes % Fluid Reactive Lymphs % Fluid Monocytes % Fluid Eosinophils % Fluid Basophils % 05/07/20 05/07/20 Range/Units 14:35 20:00 WBC (4.5-11.0) K/mm3 RBC (3.65-5.03) M/mm3 Hgb (10.1-14.3) gm/dl Hct (30.3-42.9) % MCV (79-97) fl MCH (28-32) pg MCHC (30-34) % RDW (13.2-15.2) % Plt Count (140-440) K/mm3 Lymph % (Auto) (13.4-35.0) % Ware % (Auto) (0.0-7.3) % Eos % (Auto) (0.0-4.3) % Baso % (Auto) (0.0-1.8) % Lymph # (Auto) (1.2-5.4) K/mm3 Ware # (Auto) (0.0-0.8) K/mm3 Eos # (Auto) (0.0-0.4) K/mm3 Baso # (Auto) (0.0-0.1) K/mm3 Seg Neutrophils % (40.0-70.0) % Seg Neutrophils # (1.8-7.7) K/mm3 Sodium (137-145) mmol/L Potassium (3.6-5.0) mmol/L Chloride (98-107) mmol/L Carbon Dioxide (22-30) mmol/L Anion Gap mmol/L BUN (7-17) mg/dL Creatinine (0.6-1.2) mg/dL Estimated GFR ml/min BUN/Creatinine Ratio % Glucose (65-100) mg/dL Lactic Acid (0.7-2.0) mmol/L Uric Acid 5.2 (3.5-7.6) mg/dL Calcium (8.4-10.2) mg/dL Total Bilirubin (0.1-1.2) mg/dL AST (5-40) units/L ALT (7-56) units/L Alkaline Phosphatase (35-129) units/L Total Protein (6.3-8.2) g/dL Albumin (3.9-5) g/dL Albumin/Globulin Ratio % Fluid Type Synovial Fluid Color Bloody Fluid Appearance Cloudy Fluid WBC 41487 /mm3 Fluid RBC 98409 /mm3 Fluid Seg Neutrophils 89 % Fluid Lymphocytes 0 % Fluid Reactive Lymphs 0 % Fluid Monocytes 11 % Fluid Eosinophils 0 % Fluid Basophils 0 % - Radiology Data Radiology results: image reviewed interpreted by me: X-ray of the right knee shows degenerative joint disease and a mild to moderate effusion. No fracture, dislocation. No signs of osteomyelitis. - Medical Decision Making This patient presents with a 2-day history of right knee pain and a 1 day history of right knee swelling. On examination she has significant reproducible tenderness to palpation of the right knee, worst in the anterior and lateral regions. 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 X-ray shows advanced degenerative changes and a mild to moderate joint effusion. CBC did not show any leukocytosis. Her metabolic panel shows chronic kidney disease and some hyperglycemia without signs of diabetic ketoacidosis. I later checked a uric acid level for gout but it came back within the normal range at 5.2. Since the patient has significant right knee pain, warmth in comparison to the left knee, and signs of a joint effusion, I had concern for a septic joint. After getting signed consent, I did a right knee arthrocentesis as per the procedure section. I was able to get out about 12 cc of turbid and bloody appearing synovial fluid. This was sent to the lab for evaluation and came back with a white blood cell count of almost 28,000 and it was 89% neutrophils. This appears consistent with a septic joint. The initial Gram stain came back with significant PMNs without an identifiable organism at this time. Cultures have been sent and the patient was started on vancomycin and Rocephin. I contacted the [place] transfer hub and the patient was accepted to [facility]. Critical Care Time: No Critical care attestation.: If time is entered above; I have spent that time in minutes in the direct care of this critically ill patient, excluding procedure time. ED Disposition Clinical Impression: Hyperglycemia Septic arthritis of knee, right Qualifiers: Septic arthritis organism: due to unspecified organism Qualified Code(s): M00.9 - Pyogenic arthritis, unspecified CKD (chronic kidney disease) Qualifiers: Chronic kidney disease stage: unspecified stage Qualified Code(s): N18.9 - Chronic kidney disease, unspecified Disposition: DC/TX-70 ANOTHER TYPE HLTHCARE Is pt being admited?: No Condition: Serious Time of Disposition: 01:49
[2020-05-07] MEDS ORDERED: LIDOCAINE (1%) 10 MG/1 ML VIAL 20 ML MDV INFILTRATI ONE (18:59)
[2020-05-07] MEDS ORDERED: HYDROcodone/ACETAMINOPHEN 5-325 MG TAB PO ONE (20:52)
[2020-05-07] MEDS ORDERED: cefTRIAXone/NS 2 GM/100 ML 2 GM/100 ML BAG IV ONE (22:16)
[2020-05-07] MEDS ORDERED: VANCOMYCIN/NS 1 GM/250 ML 1 GM/250 ML BAG IV ONE (22:16)
[2020-05-07 22:17] LABS: Monocytes Body Fluid 11 %
[2020-05-07 23:59] VITALS: BP 147/85
== END 2020-05-08 01:33 | disposition other institution (70) ==
LOC: ED 13:34
DX: E11.22 Type 2 diabetes mellitus with diabetic chronic kidney disease (principal); I12.9 Hypertensive chronic kidney disease with stage 1 through stage 4 chronic kidney disease, or unspecified chronic kidney disease; N18.9 Chronic kidney disease, unspecified; E11.65 Type 2 diabetes mellitus with hyperglycemia; T84.53XA Infection and inflammatory reaction due to internal right knee prosthesis, initial encounter; Z86.73 Personal history of transient ischemic attack (TIA), and cerebral infarction without residual deficits; Z79.899 Other long term (current) drug therapy; Z91.013 Allergy to seafood; Z88.8 Allergy status to other drugs, medicaments and biological substances
CPT/HCPCS: 20610; 36415; 73562; 80053; 82140; 82947; 84550; 85025; 85048; 87040; 87116; 89051; 96365; 96367; 99285; J0696; J3370; 96366